=== PATIENT | male | born 1955 | race Caucasian/White ===

== ENCOUNTER 2019-06-05 14:13 | Emergency (ER) | payer BC, OTHER ==
[~2019-06-05] VITALS: Ht 175.3 cm; Wt 86.2 kg
[~2019-06-05 14:13] MED LIST: AC325T PO; ASP81TEC PO; CLPD75T PO; LISI5TAB PO; MTP25TSR PO; PRV20T PO; [UNRECOGNIZED DRUG - CODE] PO
--- OUTSIDE RECORDS SUMMARY | 2019-06-05 14:17 | XMS REPORT | Continuity of Care Document ---
Author Organization Unknown Address Unknown Phone Unavailable Allergies Active Description Code Type Severity Reaction Onset Reported/Identified Relationship to Patient Clinical Status Yes No Known Drug Allergies [id number] Drug Allergy Unknown N/A 10/18/2011 Medications There is no data. 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 10/20/2011 Ot 425.4 PRIM CARDIOMYOPATHY NEC 10/20/2011 Ot 790.6 ABN BLOOD CHEMISTRY NEC 10/20/2011 Ot V03.82 PROPHYLACTIC VACC AGAINST STREPTOCOCCUS 10/20/2011 Ot V04.81 ND FOR PROPHYLACTIC VACCIN AND INOCULATI 12/24/2016 Ot 305.1 TOBACCO USE DISORDER 12/24/2016 Ot 411.1 INTERMED CORONARY SYND 12/24/2016 Ot 414.01 CORONARY ATHEROSCLEROSIS OF [place] CORON 12/24/2016 Ot V17.49 FAMILY HISTORY OF OTHER CARDIOVASCULAR D 12/24/2016 Ot V45.89 POSTSURGICAL STATES NEC 12/24/2016 Ot 414.00 CORON ATHEROSCLER NOS TYPE VESSEL, NATIV 12/24/2016 Ot 424.0 MITRAL VALVE DISORDER 12/24/2016 Ot 425.4 PRIM CARDIOMYOPATHY NEC 12/24/2016 Ot 240.9 GOITER NOS 12/24/2016 Ot 241.0 NONTOX UNINODULAR GOITER 12/24/2016 ANDIE TAYLOR [facility] [facility] Ot 414.01 CORONARY ATHEROSCLEROSIS OF [place] CORON 12/24/2016 ANDIE TAYLOR [facility] Ot 780.79 OTH MALAISE FATIGUE 12/24/2016 Ot 305.1 TOBACCO USE DISORDER 12/24/2016 Ot 411.1 INTERMED CORONARY SYND 12/24/2016 Ot 414.01 CORONARY ATHEROSCLEROSIS OF [place] CORON 12/24/2016 Ot V17.49 FAMILY HISTORY OF OTHER CARDIOVASCULAR D 12/24/2016 Ot V45.89 POSTSURGICAL STATES NEC 12/24/2016 Ot 414.00 CORON ATHEROSCLER NOS TYPE VESSEL, NATIV 12/24/2016 Ot 424.0 MITRAL VALVE DISORDER 12/24/2016 Ot 425.4 PRIM CARDIOMYOPATHY NEC 12/24/2016 Ot 240.9 GOITER NOS 12/24/2016 Ot 241.0 NONTOX UNINODULAR GOITER 12/24/2016 BAIMELISSAANDIE Stas [facility] Ot 414.01 CORONARY ATHEROSCLEROSIS OF [place] CORON 12/24/2016 ANHMELISSA ANDIE L [facility] Ot 780.79 OTH MALAISE FATIGUE 11/03/2017 Ot 240.9 GOITER NOS 11/03/2017 Ot 241.0 NONTOX UNINODULAR GOITER 11/03/2017 BAIMA ANDIE L [facility] Ot 414.01 CORONARY ATHEROSCLEROSIS OF [place] CORON 11/03/2017 ANHMA ANDIE L [facility] Ot 780.79 OTH MALAISE FATIGUE 11/03/2017 Ot 240.9 GOITER NOS 11/03/2017 Ot 241.0 NONTOX UNINODULAR GOITER 11/03/2017 CLAUDIA ANDIE L [facility] Ot 414.01 CORONARY ATHEROSCLEROSIS OF [place] CORON 11/03/2017 ANHMELISSA ANDIE L [facility] Ot 780.79 OTH MALAISE FATIGUE 03/02/2018 NATE PERAZA FACC, JANE FACP CCDS Ot E66.3 OVERWEIGHT 03/02/2018 NATE PERAZA FACC, ALI FACP CCDS Ot E78.4 OTHER HYPERLIPIDEMIA 03/02/2018 NATE PERAZA FACC, ALI FACP CCDS Ot I10 ESSENTIAL (PRIMARY) HYPERTENSION 03/02/2018 NATE PERAZA FACC, ALI FACP CCDS Ot I25.10 ATHSCL HEART DISEASE OF [place] CORONARY 03/02/2018 NATE PERAZA FACC, ALI FACP CCDS Ot I49.5 SICK SINUS SYNDROME 03/16/2018 NATE PERAZA FACC, ALI FACP CCDS Ot E66.3 OVERWEIGHT 03/16/2018 NATE PERAZA FACC, ALI FACP CCDS Ot E78.4 OTHER HYPERLIPIDEMIA 03/16/2018 NATE PERAZA FACC, ALI FACP CCDS Ot I10 ESSENTIAL (PRIMARY) HYPERTENSION 03/16/2018 NATE PERAZA FACC, ALI FACP CCDS Ot I25.10 ATHSCL HEART DISEASE OF [place] CORONARY 03/16/2018 NATE PERAZA FACC, ALI FACP CCDS Ot I49.5 SICK SINUS SYNDROME Procedures Code Description Performed By Performed On 00.40 PROCEDURE ON SINGLE VESSEL 10/18/2011 00.45 INSERTION OF ONE VASCULAR STENT 10/18/2011 00.66 PERCUTANEOUS TRANSLUMINAL CORONARY ANGIO 10/18/2011 36.07 INSRT OF DRUG-ELUTING CORON ARTERY STENT 10/18/2011 37.22 LEFT HEART CARDIAC CATH 10/18/2011 88.53 LT HEART ANGIOCARDIOGRAM 10/18/2011 88.56 CORONAR ARTERIOGR-2 CATH 10/18/2011 Results There is no data. Encounters ACCT No. Visit Date/Time Discharge Status Pt. Type Provider Facility Loc./Unit Complaint [id number] 03/22/2019 16:00:00 03/22/2019 23:59:59 CLS Outpatient ALEJANDRO HINES [id number] 04/08/2018 10:00:00 04/08/2018 23:59:59 CLS Preadmit ANDIE TAYLOR [facility] CARD I25.10 CAD [id number] 03/01/2018 07:18:00 03/01/2018 23:59:59 CLS Outpatient NATE PERAZA FACC, ALI FACP CCDS [facility] CARD I25.10 CAD [id number] 11/09/2017 07:30:00 11/09/2017 23:59:59 CLS Preadmit NATE PERAZA FACC, ALI FACP CCDS [facility] CARD I25.10 CAD [id number] 11/05/2017 08:00:00 11/05/2017 23:59:59 CLS Preadmit NATE PERAZA FACC, ALI FACP CCDS [facility] CARD I25.10 CAD [id number] 05/29/2013 06:53:00 05/29/2013 23:59:59 CLS Outpatient ANDIE TAYLOR [facility] RAD FATIGUE,CAD [id number] 10/13/2012 10:48:00 Document Registration [id number] 09/28/2012 09:40:00 Document Registration [id number] 12/03/2011 08:23:00 Document Registration [id number] 10/18/2011 12:10:00 Document Registration [id number] 10/18/2011 12:10:00 Document Registration
--- NOTE | 2019-06-05 14:41 | ED Chest Pain ---
General Stated Complaint: WC CHEST INJURY Source: patient Exam Limitations: no limitations History of Present Illness Date Seen by Provider: Jun 05, 2019 Time Seen by Provider: 14:36 Initial Comments This 63-year-old man was working and got caught between a cement loader and the wall. He suffered squeeze type injury of the right lower chest. He was not rendered un conscious but continues to have some pain especially with breathing and movement. Timing/Duration: 1-3 hours Severity/Quality: moderate Location: central Radiation: no radiation Activities at Onset: none Prior CP/Workup: no prior chest pain Associated Symptoms: denies symptoms Allergies and Home Medications Allergies Coded Allergies: No Known Drug Allergies (Unverified , 10/18/11) Home Medications Acetaminophen 325 Mg Tablet, 650 MG PO Q6H PRN, (Reported) Aspirin 81 Mg Tabec, 81 MG PO DAILY, (Reported) Clopidogrel 75 Mg Tablet, 75 MG PO DAILY, (Reported) Lisinopril 5 Mg Tablet, 5 MG PO HS, (Reported) Metoprolol Succinate 25 Mg Tab.sr.24h, 25 MG PO DAILY, (Reported) Phenylephrine/Diphenhydramine 1 Each Tablet, 1 EACH PO PRN, (Reported) Pravastatin Sodium 20 Mg Tablet, 20 MG PO DAILY, (Reported) Patient Home Medication List Home Medication List Reviewed: Yes Review of Systems Review of Systems Constitutional: no symptoms reported Respiratory: No Symptoms Reported, See HPI (patient is tender over his right anterior lower chest.) Cardiovascular: No Symptoms Reported, See HPI Gastrointestinal: No Symptoms Reported, See HPI Genitourinary: No Symptoms Reported, See HPI Musculoskeletal: see HPI, muscle pain, muscle stiffness, muscle cramps Skin: no symptoms reported Psychiatric/Neurological: No Symptoms Reported, See HPI Endocrine: No Symptoms Reported, See HPI Hematologic/Lymphatic: No Symptoms Reported, See HPI Past Oqglywp-Aiivgp-Zlbcge Hx Past Med/Social Hx: Reviewed Nursing Past Med/Soc Hx Past Medical History Reproductive Disorders: No Physical Exam Vital Signs Vital Signs - First Documented Capillary Refill : Height, Weight, BMI Height: '" Weight: lbs. oz. kg; BMI Method: General Appearance: No Apparent Distress HEENT: PERRL/EOMI Neck: Full Range of Motion, Normal Inspection, Non Tender Respiratory: Lungs Clear, Normal Breath Sounds, No Accessory Muscle Use, Other (patient has tenderness to palpation over the right anterior chest. There is a erythematous jimmie at the lower right costal margin. This red jimmie measures about 48 cm by about 3 cm.) Cardiovascular: Regular Rate, Rhythm, No Edema, No Gallop Gastrointestinal: Normal Bowel Sounds, No Organomegaly, No Pulsatile Mass, Non Tender Rectal: Deferred Extremity: Normal Inspection, Normal Range of Motion, Non Tender Neurologic/Psychiatric: Alert, Oriented x3, Normal Mood/Affect Skin: Warm/Dry, Erythema (there is an erythematous area over the right lower costal margin is mentioned above.) Progress/Results/Core Measures Results/Orders My Orders Orders - ISABELLA ROSE MD Ct Chest Wo (06/05/19 14:34) Ct Abdomen/Pelvis W Wo (06/05/19 15:45) Cbc With Automated Diff (06/05/19 15:58) Comprehensive Metabolic Panel (06/05/19 15:58) Vital Signs/I&O 06/05/19 06/05/19 14:20 14:20 Temp 99.0 99.0 Pulse 107 107 Resp 20 20 B/P (MAP) 156/79 (104) 156/79 (104) Pulse Ox 95 95 O2 Delivery Room Air Room Air Progress Progress Note : Time: 16:03 Progress Note This 63-year-old man was working and got caught between a cement loader and the wall. He suffered squeeze type injury of the right lower chest. He was not rendered unconscious but continues to have some pain especially with breathing and movement. Examination reveals patient has some erythema and tenderness over his anterior inferior ribs. CT scan of the chest reveals a probable tumor involving the right kidney with metastasis to theL 4th rib. I talked to the patient about doing a CT scan of the abdomen and pelvis with and without contrast but he did not want to pursue that at this time and wanted to follow-up. Departure Impression Primary Impression: Contusion, chest wall Additional Impression: Neoplasm of right kidney Disposition: 01 HOME, SELF-CARE Condition: Unchanged Departure-Patient Inst. Referrals: DANA BENSON MD (PCP/Family) Primary Care Physician Patient Instructions: Bruised Rib, Kidney Cancer ISABELLA ROSE MD Jun 05, 2019 14:41
--- NOTE | 2019-06-05 15:16 | Diagnostic Imaging Report ---
PROCEDURE: CT chest without contrast. TECHNIQUE: Multiple contiguous axial images were obtained through the chest without the use of intravenous contrast. Auto Exposure Controls were utilized during the CT exam to meet ALARA standards for radiation dose reduction. INDICATION: Crush injury to the chest. COMPARISON: No prior studies are available for comparison. FINDINGS: No mediastinal hematoma is seen. Great vessel injury cannot be evaluated due to absence of intravenous contrast. There are coronary arterial calcifications present. No pericardial or pleural fluid is identified. No parenchymal contusion or pneumothorax is seen. There is some atelectasis or scarring in the right lower lobe. Evaluation of bony structures are without evidence of an acute fracture. No rib fracture seen, however, there is a lytic lesion involving the lateral left fourth rib approximately 11 mm x 21 mm, indeterminate. No other osteolytic lesions are seen. Upper abdomen does show a solid-appearing mass involving the right kidney measuring approximately 6 cm. IMPRESSION: 1. No acute chest findings are seen. 2. Left fourth rib lytic lesion. In addition, upper abdomen does demonstrate partial inclusion of a solid mass involving the right kidney. Combination of findings are highly suspicious for primary renal neoplasm with potential osteolytic metastasis of the left fourth rib. Dictated by: Dictated on workstation # [id number]
[2019-06-05 16:37] VITALS: BP 138/71
== END 2019-06-05 16:37 | disposition home or self-care (01) ==
LOC: EDUNIT# 14:13 → ER FS 14:14
DX: S20.211A Contusion of right front wall of thorax, initial encounter (principal); C64.1 Malignant neoplasm of right kidney, except renal pelvis; C79.51 Secondary malignant neoplasm of bone; Z79.82 Long term (current) use of aspirin; Z79.02 Long term (current) use of antithrombotics/antiplatelets; W23.1XXA Caught, crushed, jammed, or pinched between stationary objects, initial encounter; Y92.59 Other trade areas as the place of occurrence of the external cause; Y99.0 Civilian activity done for income or pay
CPT/HCPCS: 71250

== ENCOUNTER → 2019-10-30 | Outpatient (CLI) | payer MEDICARE ==
[~2019-10-30] MED LIST changes: +CATHETER FLUSH 10 ML SYR IV PRN; +HOLD METFORMIN - RECEIVED CONTRAST 20 ML VIAL IV SCH; +IOHEXOL 350 MG/ML 100 ML (OMNIPAQUE 350) VIAL IV ONE; +NS 100 ML (IVPB) BAG IV ONE
[2019-10-30 11:24] LABS: CREATININE SERUM 1.38 MG/DL (0.60-1.30)
--- NOTE | 2019-10-30 12:33 | Diagnostic Imaging Report ---
PROCEDURE: CT abdomen and pelvis with and without contrast. TECHNIQUE: Precontrast acquisitions were acquired through the abdomen and pelvis. Multiple contiguous axial images were obtained through the abdomen and pelvis after the administration of intravenous contrast. Auto Exposure Controls were utilized during the CT exam to meet ALARA standards for radiation dose reduction. INDICATION: Right renal mass as well as left lower quadrant pain and flank pain. COMPARISON: No prior studies are available for comparison. FINDINGS: Imaging through the lung bases show some minimal scarring or atelectasis in posterior right lower lobe. The liver demonstrates generalized low density consistent with hepatic steatosis. No discrete liver mass is identified. The gallbladder is unremarkable. No biliary ductal dilatation is seen. The pancreas and spleen are unremarkable. The right adrenal gland is unremarkable. Left adrenal gland does contain a nodule arising from the lateral limb measuring 13 mm in size. This lesion does demonstrate approximately 64% absolute washout and 49% relative washout. This is suggestive of an adrenal adenoma. There is a heterogeneous, mixed solid and cystic mass involving the upper pole of the right kidney measuring 6.5 cm AP x 6.3 cm transverse x 6.7 cm cephalocaudal. The IVC appears to be patent. The right renal vein is not well visualized. Left renal vein is patent. No definite central retroperitoneal lymphadenopathy is seen. No mesenteric lymphadenopathy is detected. The small and large bowel loops are normal caliber. There is no obstruction. There is diverticulosis of the sigmoid but no evidence of acute diverticulitis. There is no free fluid or fluid collection identified. The bladder is unremarkable. The prostate gland is enlarged. Evaluation of the osseous structures demonstrates a expansile lytic destructive lesion involving the right iliac bone. This measures approximately 6.7 x 3.6 x 4.2 cm. This appears to violate both posterior and anterior cortices of the right iliac bone. This soft tissue tumor extension into the right iliac is musculature. No other lytic lesions are seen. IMPRESSION: 1. Large next solid and cystic mass involving the upper pole of the right kidney, most consistent with renal cell carcinoma. There is also a destructive, expansile lytic lesion involving the right iliac bone with tumor extension into the right iliacus musculature. This is suggestive of a metastatic lesion. 2. Uncomplicated diverticulosis. 3. Prostatomegaly. 4. Left adrenal nodule. Enhancement kinetics are suggestive of an adrenal adenoma but follow-up to confirm stability would be recommended with repeat study in six months. Dictated by: Dictated on workstation # [id number]
--- NOTE | 2019-10-30 15:14 | Diagnostic Imaging Report ---
INDICATION: Renal mass. EXAMINATION: Whole body bone scan. RADIOPHARMACEUTICAL: 26.8 mCi of technetium 99m MDP was given intravenously. FINDINGS: There is increased activity in the right mid iliac wing. This corresponds to an expansile lytic lesion seen on the CT from earlier in the day. There is a small focus of increased uptake in the right posterior 11th rib. There are no corresponding abnormalities seen on the CT scan. There is a small focus of increased activity in the right anterior 6th and 7th ribs. IMPRESSION: Abnormal activity in the right ilium, suspicious for metastatic disease. There is abnormal activity in the right 6th and 7th ribs which are suspicious for metastatic involvement although corresponding abnormalities are not seen on the CT. There is also a small focus of increased activity in the right posterior 11th rib with no obvious abnormality seen on the CT. Dictated by: Dictated on workstation # [id number]
== END ==
LOC: CARD 10:33
PROVIDERS: ATTEND Urology
DX: N28.1 Cyst of kidney, acquired (principal); M89.9 Disorder of bone, unspecified; K57.30 Diverticulosis of large intestine without perforation or abscess without bleeding; N40.0 Benign prostatic hyperplasia without lower urinary tract symptoms; E27.8 Other specified disorders of adrenal gland
CPT/HCPCS: 36415; 74178; 78306; 82565; 84520

== ENCOUNTER → 2020-02-01 | Outpatient (CLI) | payer MEDICARE ==
[~2020-02-01] MED LIST changes: -CATHETER FLUSH 10 ML SYR IV PRN; -HOLD METFORMIN - RECEIVED CONTRAST 20 ML VIAL IV SCH; -IOHEXOL 350 MG/ML 100 ML (OMNIPAQUE 350) VIAL IV ONE; -NS 100 ML (IVPB) BAG IV ONE
--- NOTE | 2020-02-01 13:31 | Diagnostic Imaging Report ---
INDICATION: Left leg pain x1 week. COMPARISON: None TECHNIQUE: Duplex, darling-scale and color-flow imaging of the left lower extremity venous system was performed. FINDINGS: The common femoral vein, superficial femoral vein, profunda femoris, and popliteal veins are normal. These vessels show normal compressibility, color flow, and doppler augmentation. The deep calf veins, although not very well seen, demonstrate no distinct intraluminal thrombus. IMPRESSION: Negative venous Doppler of the left lower extremity. Dictated by: Dictated on workstation # [id number]
== END ==
LOC: RAD 12:49
PROVIDERS: ATTEND Internal Medicine Hospice and Palliative Medicine
DX: M79.605 Pain in left leg (principal)

== ENCOUNTER → 2020-03-19 | Outpatient (CLI) | payer MEDICARE ==
[~2020-03-19] MED LIST changes: +CATHETER FLUSH 10 ML SYR IV PRN; +HOLD METFORMIN - RECEIVED CONTRAST 20 ML VIAL IV SCH; +IOHEXOL 350 MG/ML 100 ML (OMNIPAQUE 350) VIAL IV ONE; +NS 100 ML (IVPB) BAG IV ONE
--- NOTE | 2020-03-19 15:44 | Diagnostic Imaging Report ---
EXAMINATION: CT Abdomen and Pelvis with intravenous contrast. TECHNIQUE: Multiple contiguous axial images were obtained through the abdomen and pelvis after the uneventful administration of intravenous contrast. All CT scans use one or more of the following dose optimizing techniques: automated exposure control, MA and/or KvP adjustment based on a patient size and exam type, or iterative reconstruction. HISTORY: Right renal cancer. COMPARISON: 10/30/2019. FINDINGS: Limited views of the lower thorax are unremarkable. The liver is normal without focal lesion. There is no biliary ductal dilation. Gallbladder is normal. Pancreas is normal. Spleen is normal. There is an unchanged 13 mm left adrenal nodule. Again seen is a large right renal mass measuring 6.0 x 6.0 cm, previously 6.1 x 6.2 cm. This is predominantly exophytic and arises from the interpolar zone of the kidney. There is a large soft tissue mass arising from the right ilium with a maximal dimension of 4.9 cm, previously 3.6 cm. There is a pathologic fracture of the right ilium. There is hypervascularity of the right iliacus related to direct invasion by the tumor into this muscle. There is no hydronephrosis. Urinary bladder is normal. Visualized bowel is normal in caliber without obstruction or inflammation. No free fluid or air. No abdominal or pelvic lymphadenopathy. Aorta is normal in caliber without aneurysm. There is a new 8 mm sclerotic lesion in the left ilium. IMPRESSION: 1. Stable large right renal mass. 2. Increase in size of right iliac metastatic lesion with pathologic fracture and new sclerotic lesion in the left ilium. Dictated by: Dictated on workstation # [id number]
== END ==
LOC: RAD 15:01
PROVIDERS: ATTEND Internal Medicine Hospice and Palliative Medicine
DX: C64.1 Malignant neoplasm of right kidney, except renal pelvis (principal); M84.48XA Pathological fracture, other site, initial encounter for fracture
CPT/HCPCS: 74177

== ENCOUNTER → 2020-04-01 | Outpatient (CLI) | payer MEDICARE ==
[~2020-04-01] MED LIST changes: -CATHETER FLUSH 10 ML SYR IV PRN; -NS 100 ML (IVPB) BAG IV ONE
[2020-04-01] MEDS: CATHETER FLUSH 10 ML SYR IV PRN ×2 (12:16→12:30)
--- NOTE | 2020-04-01 13:52 | Diagnostic Imaging Report ---
PROCEDURE: CT chest with contrast only. TECHNIQUE: Multiple contiguous axial images were obtained through the chest after administration of intravenous contrast. Auto Exposure Controls were utilized during the CT exam to meet ALARA standards for radiation dose reduction. INDICATION: Prostate cancer, kidney cancer. FINDINGS: The previous CT chest exam of 06/05/2019 failed to show any evidence for an acute abnormality; however, there was a lytic lesion involving the left 4th rib. On this exam, that lytic lesion is again identified. Previously, this area measured 1.1 x 2.1 cm. This lytic lesion now measures 1.5 x 2.1 cm. This finding should be considered neoplastic until proven otherwise. There is no other lytic or blastic lesion noted. The Nuclear Medicine bone scan performed on 10/30/2019 did suggest abnormal uptake in the right 6th and 7th ribs but there is no clear evidence for bony destruction in these areas on this exam. There is no parenchymal lung mass identified to indicate metastatic disease either. The mild scar formation in the right lung base seen previously is again evident and no different. There is no sign of failure, pneumonia, or pleural effusion to indicate an acute abnormality. The heart size is stable. Coronary artery calcifications are again noted. The aorta is not abnormally dilated and there is no sign of a dissection. The pulmonary arteries were not well opacified and consequently difficult to assess for pulmonary embolus. There is no definite defect to suggest a pulmonary embolus, however. There is no mediastinal or hilar adenopathy. The thyroid gland is prominent and the areas of low density in the left lobe of the thyroid seen previously are again evident and do not appear to have changed significantly. The sections through the upper abdomen again show a mass involving the superior pole of the right kidney. This mass was not visualized in its entirely but is estimated to be approximately 6 cm. The small 1 cm exophytic nodule along the posterior aspect of the left kidney seen previously is again evident. This seems to be solid as well. Ultrasound would be recommended for further evaluation. The nodule associated with the left adrenal gland may be minimally larger than on the previous CT abdomen/pelvis exam of 06/05/2019. This finding may represent a benign adrenal nodule. The possibility that this is secondary to metastatic disease should also be considered. If further imaging is desired, then either PET/CT or MRI would be recommended. IMPRESSION: 1. There is no acute cardiopulmonary abnormality identified. There is no parenchymal lung mass noted to suggest metastatic disease either. 2. The lytic lesion involving the left 4th rib seen previously has increased in size and consequently should be considered neoplastic until proven otherwise. The mass associated with the right kidney seems stable as does the 1 cm exophytic nodule along the posterior aspect of the left kidney. The nodule associated with the left adrenal gland may be minimally larger, however. Additional considerations and recommendations as above. Dictated by: Dictated on workstation # [id number]
--- NOTE | 2020-04-01 18:42 | Diagnostic Imaging Report ---
EXAMINATION: Nuclear medicine bone scan. INDICATION: Prostate cancer. TECHNIQUE: This study was performed following administration of 27.1 mCi of 99m technetium MDP. Anterior and posterior whole body images were obtained. FINDINGS: The previous nuclear medicine bone scan performed on 10/30/2019 noted abnormal activity involving the right ilium. This finding was suspicious for metastatic disease. On this exam, there is still abnormal uptake in this region. There also appears to be abnormal uptake in the left ischium. This is no different than on the prior exam as well. The previous study did show abnormal uptake along the anterior aspects of the right sixth and seventh ribs. The uptake in this region on this exam is much less. There is an area of increased activity involving the left fourth rib in the region of the lytic lesion seen in this area on the CT chest exam performed in conjunction with this study. There is no new area of abnormal uptake to suggest metastatic disease. However, there is increased activity along the medial aspect of the left knee joint. This finding was not present on the prior exam and may be related to trauma to the left knee. Clinical follow-up is recommended. Both kidneys do show excretion of the radiotracer. IMPRESSION: 1. The suspected metastatic foci involving the right ilium and left ischium seen previously are again evident and no different. 2. There is little if any abnormal uptake involving the right sixth and seventh ribs. There is persistent uptake of the left fourth rib, however. 3. The abnormal uptake involving the medial aspect of the left knee joint may be post-traumatic in nature. Clinical follow-up is recommended. If further imaging is desired, then MRI would be recommended. Dictated by: Dictated on workstation # [id number]
== END ==
LOC: CARD 11:47
PROVIDERS: ATTEND Internal Medicine Hospice and Palliative Medicine
DX: C64.1 Malignant neoplasm of right kidney, except renal pelvis (principal); C61 Malignant neoplasm of prostate; N28.89 Other specified disorders of kidney and ureter; E27.8 Other specified disorders of adrenal gland; I25.10 Atherosclerotic heart disease of native coronary artery without angina pectoris; R91.8 Other nonspecific abnormal finding of lung field; M89.9 Disorder of bone, unspecified
CPT/HCPCS: 71260; 78306

== ENCOUNTER → 2020-05-21 | Outpatient (CLI) | payer MEDICARE ==
[~2020-05-21] MED LIST changes: +CATHETER FLUSH 10 ML SYR IV PRN; +NS 100 ML (IVPB) BAG IV ONE
--- NOTE | 2020-05-21 13:00 | Diagnostic Imaging Report ---
EXAMINATION: CT Chest, Abdomen and Pelvis with intravenous contrast. TECHNIQUE: Multiple contiguous axial images were obtained through the chest, abdomen and pelvis after the uneventful administration of intravenous contrast. All CT scans use one or more of the following dose optimizing techniques: automated exposure control, MA and/or KvP adjustment based on a patient size and exam type, or iterative reconstruction. HISTORY: Renal cancer. COMPARISON: 04/01/2020 and 03/19/2020. FINDINGS: There is no edema or pneumonia. No pleural effusion. No pneumothorax. No suspicious nodules. Heart size is normal. There are moderate coronary artery calcifications. No pericardial effusion. Aorta is normal in caliber. There is no axillary or supraclavicular lymphadenopathy. There is no mediastinal lymphadenopathy. Left-sided thyroid nodule is stable. The liver is normal without focal lesion. There is no biliary ductal dilation. Gallbladder is normal. Pancreas is normal. Spleen is normal. There is a stable 13 mm left adrenal nodule. The right adrenal mass is stable in size measuring 6.3 x 6.1 cm, previously 6.1 x 6.0 cm. There is no hydronephrosis. Urinary bladder is normal. Visualized bowel is normal in caliber without obstruction or inflammation. There is a fat-containing left inguinal hernia. No free fluid or air. No abdominal or pelvic lymphadenopathy. Aorta is normal in caliber without aneurysm. Soft tissue mass in the right ilium is stable measuring up to 5.2 cm in size. There is a stable tiny left iliac sclerotic lesion. Left fourth rib lesion is similar to prior study. IMPRESSION: 1. Stable right renal mass and metastatic lesions in the left fourth rib and right ilium. 2. Stable indeterminate left adrenal nodule and tiny sclerotic lesion in the left ilium. Dictated by: Dictated on workstation # [id number]
--- NOTE | 2020-05-21 15:40 | Diagnostic Imaging Report ---
INDICATION: Right renal neoplasm. TECHNIQUE: The patient was administered 25.7 mCi of technetium 99m MDP intravenously and whole-body imaging was performed after a 3 hour delay. COMPARISON: Correlation is made with the prior whole body bone scan from 04/01/2020. FINDINGS: Uptake of activity by the axial and appendicular skeleton is noted. There is uptake by both kidneys with excretion into the urinary bladder. A small area of uptake involving the lateral aspect of the left approximately 4th rib is unchanged. Minimal uptake in the lower right ribs posteriorly, best seen on the posterior view, is stable. Mild degenerative uptake at the left knee and bilateral shoulders is unchanged. The previously noted uptake involving the left iliac bone and left supra-acetabular region appears stable. A lucency at the right iliac bone near the crest on the posterior view is stable. No new abnormality is identified. IMPRESSION: Overall stable whole body bone scan when compared with the examination from 04/01/2020. Dictated by: Dictated on workstation # [id number]
== END ==
LOC: CARD 11:46
PROVIDERS: ATTEND Internal Medicine Hospice and Palliative Medicine
DX: C64.1 Malignant neoplasm of right kidney, except renal pelvis (principal); C79.51 Secondary malignant neoplasm of bone; E27.8 Other specified disorders of adrenal gland
CPT/HCPCS: 71260; 74177; 78306; A9503

== ENCOUNTER → 2020-05-22 | Outpatient (CLI) | payer MEDICARE ==
[~2020-05-22] MED LIST changes: -CATHETER FLUSH 10 ML SYR IV PRN; -HOLD METFORMIN - RECEIVED CONTRAST 20 ML VIAL IV SCH; -IOHEXOL 350 MG/ML 100 ML (OMNIPAQUE 350) VIAL IV ONE; -NS 100 ML (IVPB) BAG IV ONE
== END ==
LOC: LABNPT 07:57
PROVIDERS: ATTEND Internal Medicine Hospice and Palliative Medicine
DX: Z20.828 Contact with and (suspected) exposure to other viral communicable diseases (principal)
CPT/HCPCS: 87635

== ENCOUNTER → 2020-07-19 | Outpatient (CLI) | payer MEDICARE | LOC: LABNPT 08:03 | PROVIDERS: ATTEND Internal Medicine Hospice and Palliative Medicine | DX: Z11.59 Encounter for screening for other viral diseases (principal); C61 Malignant neoplasm of prostate; C64.1 Malignant neoplasm of right kidney, except renal pelvis; Z20.828 Contact with and (suspected) exposure to other viral communicable diseases | CPT/HCPCS: 87635 ==

== ENCOUNTER → 2020-08-15 | Outpatient (CLI) | payer MEDICARE | LOC: LABNPT 08:23 | PROVIDERS: ATTEND Internal Medicine Hospice and Palliative Medicine | DX: Z01.812 Encounter for preprocedural laboratory examination (principal); C64.1 Malignant neoplasm of right kidney, except renal pelvis; Z20.828 Contact with and (suspected) exposure to other viral communicable diseases | CPT/HCPCS: 87635 ==

== ENCOUNTER → 2020-09-13 | Outpatient (CLI) | payer MEDICARE | LOC: LABNPT 08:21 | PROVIDERS: ATTEND Internal Medicine Hospice and Palliative Medicine | DX: C61 Malignant neoplasm of prostate (principal); C64.1 Malignant neoplasm of right kidney, except renal pelvis; Z20.828 Contact with and (suspected) exposure to other viral communicable diseases | CPT/HCPCS: 87635 ==

== ENCOUNTER → 2020-10-04 | Outpatient (CLI) | payer MEDICARE ==
[~2020-10-04] MED LIST changes: +CATHETER FLUSH 10 ML SYR IV PRN; +HOLD METFORMIN - RECEIVED CONTRAST 20 ML VIAL IV SCH; +IOHEXOL 350 MG/ML 100 ML (OMNIPAQUE 350) VIAL IV ONE; +NS 100 ML (IVPB) BAG IV ONE
[2020-10-04 12:08] LABS: ALBUMIN 4.3 GM/DL (3.2-4.5); CHLORIDE 101 MMOL/L (98-107); POTASSIUM 4.4 MMOL/L (3.6-5.0); SODIUM 138 MMOL/L (135-145)
[2020-10-04 12:09] LABS: CALCIUM 9.4 MG/DL (8.5-10.1)
[2020-10-04 12:10] LABS: GLUCOSE 98 MG/DL (70-105)
[2020-10-04 12:11] LABS: TOTAL PROTEIN 6.9 GM/DL (6.4-8.2)
[2020-10-04 12:12] LABS: BILIRUBIN,TOTAL 0.3 MG/DL (0.1-1.0); CARBON DIOXIDE 27 MMOL/L (21-32)
[2020-10-04 12:14] LABS: ALKALINE PHOSPHATASE 52 U/L (40-136); CREATININE SERUM 1.05 MG/DL (0.60-1.30); GFR ESTIMATED > 60
[2020-10-04 12:15] LABS: BUN/CREATININE RATIO 14
[2020-10-04 12:17] LABS: ALANINE AMINOTRANSFERASE 14 U/L (0-55)
--- NOTE | 2020-10-04 13:45 | Diagnostic Imaging Report ---
PROCEDURE: CT chest, abdomen, and pelvis with contrast. TECHNIQUE: Multiple contiguous axial images were obtained through the chest, abdomen, and pelvis after the administration of intravenous contrast. Auto Exposure Controls were utilized during the CT exam to meet ALARA standards for radiation dose reduction. INDICATION: Renal carcinoma. CORRELATION STUDY: 05/21/2020 FINDINGS: CT CHEST: Thyroid gland is mildly enlarged. Low-density nodule particularly inferior pole left lobe. No pathologically enlarged axillary, mediastinal and/or hilar lymph nodes. Heart size is within normal limits. There is scattered mild to moderate coronary artery calcification. Emphysematous change about the lung parenchyma. Asymmetric scarring in the right lower lobe. No infiltrate. No definitive concerning pulmonary mass. Expansile lateral left 4th rib appears unchanged. There is apparent new destructive soft tissue mass at the medial right scapula, approximately [address] ABDOMEN and PELVIS: Liver, gallbladder, spleen, pancreas and right adrenal gland unchanged. 16 mm enhancing lateral left adrenal gland mass. Large, approximately 6.7 x 6.4 cm enhancing mass superior pole right kidney, measures slightly larger (previously 6.3 x 6.1 cm) a few shotty central retroperitoneal lymph nodes are present. No pathologically enlarged lymphadenopathy. Inferior vena cava and right renal vein are unremarkable without definitive filling defect. Gastrointestinal tract: Colonic diverticulosis without evidence for acute diverticulitis. Normal appendix. Prominent vasculature in and around this mass. Additionally, there is a small exophytic enhancing solid nodule posterior interpolar region left kidney, 12 mm in size. Destructive exophytic mass of the right iliac bone with surrounding soft tissue component appears generally stable. Additionally, there is loss of the medullary portion the left acetabulum also suggestive of a likely osseous metastasis. Few sclerotic lesions the iliac bone. IMPRESSION: CT CHEST: 1. Generally stable metastatic lesion left lateral 4th rib. 2. Apparent new destructive soft tissue mass medial right scapula. CT ABDOMEN and PELVIS: 1. Stable to slightly progressive enlargement of a right renal neoplastic mass. 2. There is also presence of a small exophytic concerning mass left kidney as well. 3. Destructive right iliac bone metastasis and likely left superior acetabular metastasis overall generally stable. 4. Stable appearance about avidly enhancing left adrenal gland mass. Dictated by: Dictated on workstation # [id number]
--- NOTE | 2020-10-04 15:54 | Diagnostic Imaging Report ---
INDICATION: Prostate cancer. It is compared with study from an outside facility [facility] dated 08/16/2020. TECHNIQUE: The patient received an intravenous dose 25.7 mCi Tc 99 MDP, whole-body planar imaging then performed 3 hours following injection. The study also interpreted in correlation with the CT study performed 10/04/2020. There is an abnormal uptake at the left acetabulum at the top of the right iliac crest in the lateral aspect of the left 4th ribs these are unchanged from the prior bone scan and correspond to areas of bony metastatic disease seen on separately performed CT. Elsewhere an arthritic pattern of uptake involves the left greater than right knees and the bilateral shoulders. Elevated uptake in the lower left tibial shaft is of uncertain etiology, plain film correlation recommended. Some asymmetric uptake in the rightward mid thoracic spine corresponds to endplate osteophytes. IMPRESSION: Unchanged from outside study, areas of uptake correspond to a bony lesions present on earlier CT. No obvious scintigraphic evidence for disease progression. Dictated by: Dictated on workstation # [id number]
== END ==
LOC: CARD 12:00
PROVIDERS: ATTEND Internal Medicine Hospice and Palliative Medicine
DX: C61 Malignant neoplasm of prostate (principal); C64.1 Malignant neoplasm of right kidney, except renal pelvis
CPT/HCPCS: 71260; 74177; 78306; 80053; A9503; 36415

== ENCOUNTER 2020-10-07 14:58 | Outpatient (RCR) | payer MEDICARE ==
[~2020-10-07 14:58] MED LIST changes: -CATHETER FLUSH 10 ML SYR IV PRN; -HOLD METFORMIN - RECEIVED CONTRAST 20 ML VIAL IV SCH; -IOHEXOL 350 MG/ML 100 ML (OMNIPAQUE 350) VIAL IV ONE; -NS 100 ML (IVPB) BAG IV ONE
== END 2020-12-09 | disposition home or self-care (01) ==
LOC: ONC 14:58
PROVIDERS: ATTEND Radiology Radiation Oncology
DX: C79.51 Secondary malignant neoplasm of bone (principal); C64.1 Malignant neoplasm of right kidney, except renal pelvis; I25.10 Atherosclerotic heart disease of native coronary artery without angina pectoris; I10 Essential (primary) hypertension; E78.5 Hyperlipidemia, unspecified; Z87.01 Personal history of pneumonia (recurrent); Z95.5 Presence of coronary angioplasty implant and graft; Z85.46 Personal history of malignant neoplasm of prostate
CPT/HCPCS: 77290; 77295; 77300; 77334 ×2; G0463; 77336; 77417; 99204

== ENCOUNTER → 2020-10-10 | Outpatient (CLI) | payer MEDICARE | LOC: LABNPT 08:42 | PROVIDERS: ATTEND Internal Medicine Hospice and Palliative Medicine | DX: C64.1 Malignant neoplasm of right kidney, except renal pelvis (principal); Z20.828 Contact with and (suspected) exposure to other viral communicable diseases | CPT/HCPCS: 87635 ==

== ENCOUNTER → 2020-11-26 | Outpatient (CLI) | payer MEDICARE | LOC: LABNPT 08:14 | PROVIDERS: ATTEND Internal Medicine Hospice and Palliative Medicine | DX: C64.1 Malignant neoplasm of right kidney, except renal pelvis (principal); Z20.822 Contact with and (suspected) exposure to COVID-19 | CPT/HCPCS: 87635 ==

== ENCOUNTER → 2020-12-02 | Outpatient (CLI) | payer MEDICARE ==
[~2020-12-02] MED LIST changes: +HOLD METFORMIN - RECEIVED CONTRAST 20 ML VIAL IV SCH; +IOHEXOL 350 MG/ML 100 ML (OMNIPAQUE 350) VIAL IV ONE; +NS 100 ML (IVPB) BAG IV ONE
[2020-12-02] MEDS: CATHETER FLUSH 10 ML SYR IV PRN ×2 (11:39→12:57)
--- NOTE | 2020-12-02 13:10 | Diagnostic Imaging Report ---
PROCEDURE: CT chest, abdomen, and pelvis with contrast. TECHNIQUE: Multiple contiguous axial images were obtained through the chest, abdomen, and pelvis after the administration of intravenous contrast. Auto Exposure Controls were utilized during the CT exam to meet ALARA standards for radiation dose reduction. INDICATION: Renal cancer, follow-up. COMPARISON: Correlation is made with prior CT from 10/04/2020. FINDINGS: CT chest: No axillary lymphadenopathy is detected. No mediastinal or hilar lymphadenopathy is detected. There is no pericardial or pleural fluid. No pulmonary nodules, masses or infiltrates are seen. There is some scarring or atelectasis in the posterior right lower lobe. Expansile lesion involving the left lateral fourth rib is again noted and appears slightly larger. The mass involving the inferior and medial aspect of the scapula has significantly increased in size, now measuring approximately 4.4 x 3.8 cm. IMPRESSION: No evidence of thoracic lymphadenopathy or pulmonary metastatic disease. Expansile left fourth rib lesion persists may be a slightly larger on today's study. In addition, the soft tissue mass involving the inferior and medial right scapula has increased in size. CT abdomen and pelvis: No discrete liver mass is identified. Gallbladder is unremarkable. There is no biliary ductal dilatation. The pancreas and spleen are unremarkable. No adrenal mass is detected. The large solid mass involving the right kidney measures approximately 6.9 x 6.6 cm compared with 6.7 x 6.4 cm. Left kidney again demonstrates a small exophytic hyperdense lesion 12 mm in size, stable. The aorta is non-aneurysmal. No definite central retroperitoneal or mesenteric lymphadenopathy is seen. Bowel loops are normal caliber. There is no ascites. There is diverticulosis of the sigmoid but no evidence of acute diverticulitis. No definite pelvic lymphadenopathy is seen. The expansile mass involving the right iliac is again noted. The lytic lesion in the left supra-acetabular region is again noted as well. No definite new osteolytic lesion is seen. IMPRESSION: Overall stable CT abdomen and pelvis since exam from 10/04/2020. A large solid right renal mass as well as indeterminate exophytic left renal mass appear to be fairly stable. The expansile osseous lesions involving the right iliac and left supra-acetabular regions appear to be fairly stable. Dictated by: Dictated on workstation # [id number]
--- NOTE | 2020-12-02 15:13 | Diagnostic Imaging Report ---
INDICATION: Renal carcinoma. TECHNIQUE: Patient was administered 27 mCi technetium 99m MDP intravenously and whole body imaging was performed after a three-hour delay. COMPARISON: Correlation is made with prior whole body bone scan from 10/04/2020. FINDINGS: Uptake involving the left acetabulum and lateral left fourth rib appears similar to prior exam. Expansile lesion in the right iliac crest is unchanged. Degenerative uptake in the midthoracic spine as well as bilateral knees is unchanged. No new foci are seen. There is uptake in the medial aspect of the right scapula, increased since prior exam. IMPRESSION: Metastatic lesions in the right scapula, right iliac crest, as well as left supra-acetabular location as well as lateral fourth rib. These correspond to the areas noted on CT. No new foci of osseous metastatic disease are identified. Dictated by: Dictated on workstation # [id number]
== END ==
LOC: CARD 11:19
PROVIDERS: ATTEND Internal Medicine Hospice and Palliative Medicine
DX: C64.1 Malignant neoplasm of right kidney, except renal pelvis (principal); N28.89 Other specified disorders of kidney and ureter
CPT/HCPCS: 71260; 74177; 78306; A9503

== ENCOUNTER 2021-01-29 19:09 | Emergency (ER) | payer MEDICARE ==
[~2021-01-29] VITALS: Ht 175 cm; Wt 88.0 kg
[~2021-01-29 19:09] MED LIST changes: -HOLD METFORMIN - RECEIVED CONTRAST 20 ML VIAL IV SCH; -IOHEXOL 350 MG/ML 100 ML (OMNIPAQUE 350) VIAL IV ONE; -NS 100 ML (IVPB) BAG IV ONE
[2021-01-29] MEDS ORDERED: hydrALAZINE (APESOLINE) 20 MG/ML VIAL IV ONE (19:30)
--- NOTE | 2021-01-29 19:33 | ED Cardiac General ---
History of Present Illness General Chief Complaint: Cardiac/General Problems Stated Complaint: HIGH BLOOD PRESSURE History of Present Illness Date Seen by Provider: Jan 29, 2021 Time Seen by Provider: 19:15 Initial Comments 65-year-old male presents for hypertension. He has been monitoring at home, readings from 180/120 max. His oncology team at [facility] and his primary care provider have recently changed his medication and increased his lisinopril to 40 mg and hydrochlorothiazide 25 mg. He started a new pain medicine for the prostate cancer and a side effect is hypertension. He also noted a headache mainly above the right eye today. He also reports a stressful day at work. He is denying any chest pain, diaphoresis, or nausea/vomiting. Timing/Duration: 1-2 days Severity: mild NTG SL PYTHON DEVELOPER: No ASA po PYTHON DEVELOPER: Yes Associated Systoms: No Chest Pain, No Cough, No Diaphoresis, No Fever/Chills; Headaches; No Loss of Appetite, No Malaise, No Nausea/Vomiting, No Rash, No Seizure, No Shortness of Air, No Syncope, No Weakness Allergies and Home Medications Allergies Coded Allergies: No Known Drug Allergies (Unverified , 10/18/11) Home Medications Acetaminophen 325 Mg Tablet, 650 MG PO Q6H PRN, (Reported) Aspirin 81 Mg Tabec, 81 MG PO DAILY, (Reported) Clopidogrel 75 Mg Tablet, 75 MG PO DAILY, (Reported) Lisinopril 5 Mg Tablet, 5 MG PO HS, (Reported) Metoprolol Succinate 25 Mg Tab.sr.24h, 25 MG PO DAILY, (Reported) Phenylephrine/Diphenhydramine 1 Each Tablet, 1 EACH PO PRN, (Reported) Pravastatin Sodium 20 Mg Tablet, 20 MG PO DAILY, (Reported) Patient Home Medication List Home Medication List Reviewed: Yes Review of Systems Review of Systems Constitutional: no symptoms reported, see HPI Cardiovascular: See HPI; Denies Chest Pain, Denies Edema, Denies Irregular Heart Rate, Denies Lightheadedness, Denies Palpitations, Denies Syncope; Other (Hypertension.) Gastrointestinal: No Symptoms Reported, See HPI; Denies Nausea, Denies Vomiting Psychiatric/Neurological: See HPI, Headache All Other Systems Reviewed Negative Unless Noted: Yes Past Dsmxkve-Cnouwc-Pognyx Hx Past Med/Social Hx: Reviewed Nursing Past Med/Soc Hx Patient Social History Type Used: Cigarettes 2nd Hand Smoke Exposure: No Recent Hopitalizations: No Seasonal Allergies Seasonal Allergies: No Past Medical History Surgeries: Yes (neck) Coronary Stent Respiratory: No Cardiac: Yes (stent placement 10 years ago) Coronary Artery Disease Neurological: No Reproductive Disorders: No Genitourinary: No Gastrointestinal: No Musculoskeletal: No Endocrine: No HEENT: No Cancer: No Psychosocial: No Integumentary: No Blood Disorders: No Physical Exam Vital Signs Vital Signs - First Documented 01/29/21 19:15 Temp 35.7 Pulse 83 Resp 16 B/P (MAP) 179/108 (131) O2 Delivery Room Air Capillary Refill : Height, Weight, BMI Height: 5'9.00" Weight: 190lbs. oz. 86.256035mf; BMI Method:Stated General Appearance: WD/WN, Anxious HEENT: PERRL/EOMI, TMs Normal, Normal ENT Inspection, Pharynx Normal Neck: Full Range of Motion, Normal Inspection, Non Tender, Supple Respiratory: Chest Non Tender, Lungs Clear, Normal Breath Sounds Cardiovascular: Regular Rate, Rhythm, No Edema, No JVD, No Murmur Gastrointestinal: Normal Bowel Sounds, Non Tender, Soft Extremity: Normal Capillary Refill, Normal Inspection, Normal Range of Motion, Non Tender, No Calf Tenderness, No Pedal Edema Neurologic/Psychiatric: Alert, Oriented x3, No Motor/Sensory Deficits, Normal Mood/Affect, process 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-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 Norm as Tested Skin: Normal Color, Warm/Dry Progress/Results/Core Measures Results/Orders Lab Results Laboratory Tests Test 01/29/21 19:26 Range/Units White Blood Count 5.1 4.3-11.0 10^3/uL Red Blood Count 5.27 4.30-5.52 10^6/uL Hemoglobin 16.5 13.3-17.7 g/dL Hematocrit 49 40-54 % Mean Corpuscular Volume 93 80-99 fL Mean Corpuscular Hemoglobin 31 25-34 pg Mean Corpuscular Hemoglobin Concent 34 32-36 g/dL Red Cell Distribution Width 12.6 10.0-14.5 % Platelet Count 197 130-400 10^3/uL Mean Platelet Volume 9.3 9.0-12.2 fL Immature Granulocyte % (Auto) 0 % Neutrophils (%) (Auto) 60 42-75 % Lymphocytes (%) (Auto) 27 12-44 % Monocytes (%) (Auto) 10 0-12 % Eosinophils (%) (Auto) 2 0-10 % Basophils (%) (Auto) 0 0-10 % Neutrophils # (Auto) 3.1 1.8-7.8 10^3/uL Lymphocytes # (Auto) 1.4 1.0-4.0 10^3/uL Monocytes # (Auto) 0.5 0.0-1.0 10^3/uL Eosinophils # (Auto) 0.1 0.0-0.3 10^3/uL Basophils # (Auto) 0.0 0.0-0.1 10^3/uL Immature Granulocyte # (Auto) 0.0 0.0-0.1 10^3/uL Prothrombin Time 12.9 12.2-14.7 SEC INR Comment 0.9 0.8-1.4 Activated Partial Thromboplast Time 30 24-35 SEC Sodium Level 139 135-145 MMOL/L Potassium Level 3.6 3.6-5.0 MMOL/L Chloride Level 100 98-107 MMOL/L Carbon Dioxide Level 29 21-32 MMOL/L Anion Gap 10 5-14 MMOL/L Blood Urea Nitrogen 10 7-18 MG/DL Creatinine 1.02 0.60-1.30 MG/DL Estimat Glomerular Filtration Rate > 60 BUN/Creatinine Ratio 10 Glucose Level 97 70-105 MG/DL Calcium Level 9.5 8.5-10.1 MG/DL Corrected Calcium 8.5-10.1 MG/DL Magnesium Level 2.3 1.6-2.4 MG/DL Total Bilirubin 0.3 0.1-1.0 MG/DL Aspartate Amino Transf (AST/SGOT) 28 5-34 U/L Alanine Aminotransferase (ALT/SGPT) 32 0-55 U/L Alkaline Phosphatase 98 40-136 U/L Myoglobin 99.8 H 10.0-92.0 NG/ML Troponin I < 0.028 <0.028 NG/ML B-Type Natriuretic Peptide 22.9 <100.0 PG/ML Total Protein 7.9 6.4-8.2 GM/DL Albumin 4.7 H 3.2-4.5 GM/DL My Orders Orders - JONAH ATKINSON Cbc With Automated Diff (01/29/21 19:23) Magnesium (01/29/21 19:23) Chest 1 View, Ap/Pa Only (01/29/21 19:23) Ekg Tracing (01/29/21 19:23) Comprehensive Metabolic Panel (01/29/21 19:23) Myoglobin Serum (01/29/21 19:23) Protime With Inr (01/29/21 19:23) Partial Thromboplastin Time (01/29/21 19:23) Monitor-Rhythm Ecg Trace Only (01/29/21 19:23) Ed Iv/Invasive Line Start (01/29/21 19:23) BNP (01/29/21 19:23) Troponin I (01/29/21 19:23) Acetaminophen Tablet/Caplet (Tylenol T (01/29/21 20:00) Vital Signs/I&O 01/29/21 19:15 Temp 35.7 Pulse 83 Resp 16 B/P (MAP) 179/108 (131) O2 Delivery Room Air Progress Progress Note : Time: 19:15 Progress Note Patient seen and evaluated, initial blood pressure 180/120. Will get labs, EKG, and chest x-ray. 1929 Second blood pressure reading 150/90. Will give Tylenol 650 mg for headache. 1999 patient reports headache has improved and declined the Tylenol. Blood pressure 142/80. Awaiting all labs and will plan for discharge. 2019 all labs within normal limits. Patient continues to deny any symptoms at this time. Blood pressure has normalized. Discharge instructions and return precautions reviewed. Initial ECG Impression Date: Jan 29, 2021 Initial ECG Impression Time: 19:25 Initial ECG Rate: 78 Initial ECG Rhythm: Normal Sinus Initial ECG Intervals: Normal Initial ECG Intervals MN 221, QRSD 100, QT 398, QTc 454. [place] A 83, QRS 41, T 37. Initial ECG Impression: Normal Diagnostic Imaging Diagonstic Imaging: Xray Plain Films/CT/US/NM/MRI: chest Comments NAME: ROCK Myranda [facility] REC#: [id number] PT STATUS: REG ER : 1955 PHYSICIAN: JONAH ATKINSON ADMIT DATE: 01/29/21/ER Signed Date of Exam:01/29/21 CHEST 1 VIEW, AP/PA ONLY INDICATION: Hypertension Portable chest 7:28 PM Heart size and pulmonary vascularity are normal. Lungs are clear. There are no effusions or pneumothoraces. There is focal pleural thickening left upper lateral chest from an expansile rib lesion. IMPRESSION: Expansile rib lesion left upper lateral chest. This is previously seen on a CT chest dated 12/02/2020. Dictated by: Dictated on workstation # [id number] Dict: 01/29/211935 Trans: 01/29/211941 CVB [id number] Interpreted by: DIO JOHNSON MD Electronically signed by: DIO JOHNSON MD 01/29/211941 Reviewed: Reviewed by Me Departure Impression Primary Impression: Hypertension Qualified Codes: I10 - Essential (primary) hypertension Disposition: HOME, SELF-CARE Condition: Improved Departure-Patient Inst. Decision time for Depature: 20:20 Referrals: SHANIKA BENSON MD (PCP/Family) Primary Care Physician Patient Instructions: High Blood Pressure (DC) Add. Discharge Instructions: Continue to take your home medications as prescribed. Follow-up with your primary care provider or oncologist regarding your pain medication and blood pressure medicines. Return to the emergency department for new, urgent healthcare needs. All discharge instructions reviewed with patient and/or family. Voiced understanding. JONAH ATKINSON Jan 29, 2021 19:33
--- NOTE | 2021-01-29 19:41 | Diagnostic Imaging Report ---
INDICATION: Hypertension Portable chest 7:28 PM Heart size and pulmonary vascularity are normal. Lungs are clear. There are no effusions or pneumothoraces. There is focal pleural thickening left upper lateral chest from an expansile rib lesion. IMPRESSION: Expansile rib lesion left upper lateral chest. This is previously seen on a CT chest dated 12/02/2020. Dictated by: Dictated on workstation # [id number]
[2021-01-29 19:43] LABS: BASOPHILS % (AUTO) 0 % (0-10); EOSINOPHILS # (AUTO) 0.1 10^3/uL (0.0-0.3); EOSINOPHILS % (AUTO) 2 % (0-10); HEMATOCRIT 49 % (40-54); HEMOGLOBIN 16.5 g/dL (13.3-17.7); LYMPHOCYTES # (AUTO) 1.4 10^3/uL (1.0-4.0); LYMPHOCYTES % (AUTO) 27 % (12-44); MEAN CORPUSCULAR HEMOGLOBIN 31 pg (25-34); MEAN CORPUSCULAR HGB CONC 34 g/dL (32-36); MEAN CORPUSCULAR VOLUME 93 fL (80-99); MEAN PLATELET VOLUME 9.3 fL (9.0-12.2); MONOCYTES # (AUTO) 0.5 10^3/uL (0.0-1.0); MONOCYTES % (AUTO) 10 % (0-12); NEUTROPHILS # (AUTO) 3.1 10^3/uL (1.8-7.8); NEUTROPHILS % (AUTO) 60 % (42-75); PLATELET COUNT 197 10^3/uL (130-400); WHITE BLOOD COUNT 5.1 10^3/uL (4.3-11.0)
[2021-01-29 19:50] LABS: INR 0.9 (0.8-1.4); PROTHROMBIN TIME PATIENT 12.9 SEC (12.2-14.7)
[2021-01-29 19:57] LABS: ALBUMIN 4.7 GM/DL (3.2-4.5); CHLORIDE 100 MMOL/L (98-107); POTASSIUM 3.6 MMOL/L (3.6-5.0); SODIUM 139 MMOL/L (135-145)
[2021-01-29 19:58] LABS: CALCIUM 9.5 MG/DL (8.5-10.1)
[2021-01-29 19:59] LABS: GLUCOSE 97 MG/DL (70-105); TOTAL PROTEIN 7.9 GM/DL (6.4-8.2)
[2021-01-29] MEDS ORDERED: ACETAMINOPHEN 325 MG TABLET PO ONE (20:00)
[2021-01-29 20:01] LABS: BILIRUBIN,TOTAL 0.3 MG/DL (0.1-1.0); CARBON DIOXIDE 29 MMOL/L (21-32)
[2021-01-29 20:03] LABS: ALKALINE PHOSPHATASE 98 U/L (40-136); CREATININE SERUM 1.02 MG/DL (0.60-1.30); GFR ESTIMATED > 60
[2021-01-29 20:04] LABS: BUN/CREATININE RATIO 10
[2021-01-29 20:06] LABS: ALANINE AMINOTRANSFERASE 32 U/L (0-55)
[2021-01-29 20:07] LABS: MAGNESIUM 2.3 MG/DL (1.6-2.4)
[2021-01-29 20:39] VITALS: BP 148/91
== END 2021-01-29 20:40 | disposition home or self-care (01) ==
LOC: EDUNIT# 19:09 → ER 19:11
DX: I10 Essential (primary) hypertension (principal); C61 Malignant neoplasm of prostate; I25.10 Atherosclerotic heart disease of native coronary artery without angina pectoris; Z95.5 Presence of coronary angioplasty implant and graft; Z79.82 Long term (current) use of aspirin; Z79.02 Long term (current) use of antithrombotics/antiplatelets; Z79.899 Other long term (current) drug therapy
CPT/HCPCS: 36415; 71045; 80053; 83735; 83874; 83880; 84484; 85025; 85610; 85730; 93005; 93041

== ENCOUNTER → 2021-03-04 | Outpatient (CLI) | payer MEDICARE ==
[~2021-03-04] MED LIST changes: +CATHETER FLUSH 10 ML SYR IV PRN; +HOLD METFORMIN - RECEIVED CONTRAST 20 ML VIAL IV SCH; +IOHEXOL 350 MG/ML 100 ML (OMNIPAQUE 350) VIAL IV ONE; +NS 100 ML (IVPB) BAG IV ONE
[2021-03-04 07:12] LABS: BASOPHILS % (AUTO) 0 % (0-10); EOSINOPHILS # (AUTO) 0.2 10^3/uL (0.0-0.3); EOSINOPHILS % (AUTO) 4 % (0-10); HEMATOCRIT 48 % (40-54); HEMOGLOBIN 15.9 g/dL (13.3-17.7); LYMPHOCYTES # (AUTO) 1.2 10^3/uL (1.0-4.0); LYMPHOCYTES % (AUTO) 26 % (12-44); MEAN CORPUSCULAR HEMOGLOBIN 32 pg (25-34); MEAN CORPUSCULAR HGB CONC 34 g/dL (32-36); MEAN CORPUSCULAR VOLUME 94 fL (80-99); MEAN PLATELET VOLUME 9.4 fL (9.0-12.2); MONOCYTES # (AUTO) 0.6 10^3/uL (0.0-1.0); MONOCYTES % (AUTO) 12 % (0-12); NEUTROPHILS # (AUTO) 2.6 10^3/uL (1.8-7.8); NEUTROPHILS % (AUTO) 57 % (42-75); PLATELET COUNT 161 10^3/uL (130-400); WHITE BLOOD COUNT 4.5 10^3/uL (4.3-11.0)
[2021-03-04 07:34] LABS: ALANINE AMINOTRANSFERASE 37 U/L (0-55); ALBUMIN 3.9 GM/DL (3.2-4.5); ALKALINE PHOSPHATASE 92 U/L (40-136); BILIRUBIN,TOTAL 0.4 MG/DL (0.1-1.0); BUN/CREATININE RATIO 14; CALCIUM 9.1 MG/DL (8.5-10.1); CARBON DIOXIDE 29 MMOL/L (21-32); CHLORIDE 101 MMOL/L (98-107); CREATININE SERUM 1.03 MG/DL (0.60-1.30); GFR ESTIMATED > 60; GLUCOSE 97 MG/DL (70-105); SODIUM 139 MMOL/L (135-145); TOTAL PROTEIN 6.7 GM/DL (6.4-8.2)
--- NOTE | 2021-03-04 10:14 | Diagnostic Imaging Report ---
PROCEDURE: CT chest, abdomen, and pelvis with contrast. TECHNIQUE: Multiple contiguous axial images were obtained through the chest, abdomen, and pelvis after the administration of intravenous contrast. Auto Exposure Controls were utilized during the CT exam to meet ALARA standards for radiation dose reduction. INDICATION: Malignant neoplasm right kidney The previous CT chest, abdomen and pelvis exam of 12/02/2020 noted a large solid mass involving the right kidney measuring 6.9 x 6.6 cm. That mass is again identified on this study. The mass has decreased in size and now measures 5.1 x 5.2 cm. The prior study also noted a 12 mm exophytic mass along the posterior aspect of the left kidney. That mass is also decreased in size and now measures 7 mm (image 125 of 256. The previous study also identified multiple osseous metastatic lesions. This included a roughly 5 cm expansile lesion involving the left 4th rib. That finding is again evident and no different. There was also a destructive mass eroding the right scapula. The mass measured 4.4 x 3.8 cm. On this study that mass is again identified and now measures 4.1 x 3.2 cm. The large destructive mass eroding the right ilium seen previously is also again visualized. This mass measures 6.5 x 4.3 cm as opposed to 7.2 x 4.9 cm on the previous study. There also appears to be a sizable lesion involving the left ischium. This measures 3.1 x 6.3 cm as opposed to 2.7 x 6.3 cm previously. There also continues to be some irregularity of the articulation of the sternum in the left 1st rib. This area did show increased activity on the whole body bone scan performed on 12/02/2020. However this may be secondary to degenerative disease alone. There is no new metastatic focus identified with certainty. The images through the thorax show that the heart size is within normal limits. There are extensive coronary calcifications noted. The aorta is not abnormally dilated and there is no sign of dissection. There is no defect within the pulmonary arteries to indicate a pulmonary embolus. There is no mediastinal or hilar adenopathy. There are several low density nodules involving both lobes of the thyroid.. The largest of these is in the inferior pole of the left lobe and measures 2.4 cm. These findings were not clearly evident on the prior study. I would recommend ultrasound of the thyroid gland be performed for further study. The lung bases remain generally clear. There is still mild chronic atelectasis/scar formation in the right lower lobe. The images through the abdomen and pelvis show that the solid organs seems similar to the prior exam. There is no evidence for metastatic disease or for an acute abnormality. There is diverticulosis of the sigmoid and descending colon but there is no sign of acute diverticulitis. The urinary bladder and prostate gland are grossly unremarkable. Impression: 1. The appearance of the CT chest, abdomen and pelvis exam has improved somewhat since the prior study. In particular, the mass involving the right kidney and the small nodule along the posterior aspect the left kidney have decreased in size slightly. The expansile lesions involving the right scapula and right ilium also measures slightly smaller than on the prior exam. 2. There is no acute abnormality of the chest, abdomen or pelvis identified. 3. Ultrasound of the thyroid gland would be recommended for further characterization of the low density nodules in each lobe. Dictated by: Dictated on workstation # [id number]
== END ==
LOC: RAD 07:45
PROVIDERS: ATTEND Internal Medicine Hospice and Palliative Medicine
DX: C64.1 Malignant neoplasm of right kidney, except renal pelvis (principal); N28.89 Other specified disorders of kidney and ureter; M75.91 Shoulder lesion, unspecified, right shoulder; M89.9 Disorder of bone, unspecified
CPT/HCPCS: 36415; 71260; 74177; 80053; 85025

== ENCOUNTER → 2021-05-09 | Outpatient (CLI) | payer MEDICARE ==
[~2021-05-09] MED LIST changes: -CATHETER FLUSH 10 ML SYR IV PRN; -HOLD METFORMIN - RECEIVED CONTRAST 20 ML VIAL IV SCH; -IOHEXOL 350 MG/ML 100 ML (OMNIPAQUE 350) VIAL IV ONE; -NS 100 ML (IVPB) BAG IV ONE
[2021-05-09 14:40] LABS: BASOPHILS % (AUTO) 1 % (0-10); EOSINOPHILS # (AUTO) 0.2 10^3/uL (0.0-0.3); EOSINOPHILS % (AUTO) 5 % (0-10); HEMATOCRIT 41 % (40-54); HEMOGLOBIN 13.9 g/dL (13.3-17.7); LYMPHOCYTES # (AUTO) 1.2 10^3/uL (1.0-4.0); LYMPHOCYTES % (AUTO) 27 % (12-44); MEAN CORPUSCULAR HEMOGLOBIN 33 pg (25-34); MEAN CORPUSCULAR HGB CONC 34 g/dL (32-36); MEAN CORPUSCULAR VOLUME 98 fL (80-99); MONOCYTES # (AUTO) 0.5 10^3/uL (0.0-1.0); MONOCYTES % (AUTO) 11 % (0-12); NEUTROPHILS # (AUTO) 2.5 10^3/uL (1.8-7.8); NEUTROPHILS % (AUTO) 57 % (42-75); PLATELET COUNT 208 10^3/uL (130-400); WHITE BLOOD COUNT 4.4 10^3/uL (4.3-11.0)
== END ==
LOC: LAB 14:22
PROVIDERS: ATTEND Internal Medicine Hospice and Palliative Medicine
DX: C61 Malignant neoplasm of prostate (principal); C64.1 Malignant neoplasm of right kidney, except renal pelvis
CPT/HCPCS: 36415; 85025

== ENCOUNTER → 2021-05-14 | Outpatient (CLI) | payer MEDICARE ==
[~2021-05-14] VITALS: Ht 170.2 cm; Wt 80.5 kg
[~2021-05-14] MED LIST changes: +LIDOCAINE 1% INJ 20 ML 20 ML VIAL INJ ONE
--- NOTE | 2021-05-14 13:46 | Diagnostic Imaging Report ---
INDICATION: Bilateral thyroid nodules. Patient presents for bilateral thyroid fine-needle aspiration and biopsy. Patient brought to the procedure room placed on table in the supine position. Ultrasound imaging of the right and left neck was performed to evaluate appropriate entry site. The neck was prepped and draped in the usual sterile fashion. Small amount 1% lidocaine was utilized for local anesthesia. A total of 4 passes were made into the solid hypoechoic nodule with microcalcifications in the mid right lobe slightly medial utilizing 25-gauge needles and fine-needle aspiration technique. A single pass was made with a Rotex needle and Rotex biopsy was performed. Next, total of 4 passes were made into the dominant solid mass in the lower pole left lobe of the thyroid utilizing 25-gauge needles and fine-needle aspiration technique. Single pass was made with a Rotex needle. Patient tolerated procedure well and left from stable condition. IMPRESSION: Successful ultrasound-guided fine-needle aspiration and Rotex biopsy of right and left lobe thyroid nodules, as described. Pathology results are currently pending. Dictated by: Dictated on workstation # [id number]
== END ==
LOC: RAD 10:41
PROVIDERS: ATTEND Nurse Practitioner
DX: E04.2 Nontoxic multinodular goiter (principal)
CPT/HCPCS: 10005; 10006

== ENCOUNTER → 2021-05-20 | Outpatient (CLI) | payer MEDICARE ==
[~2021-05-20] MED LIST changes: +CATHETER FLUSH 10 ML SYR IV PRN; +GADOBUTROL 10 MMOL/10 ML (GADAVIST) VIAL IV ONE; +HOLD METFORMIN - RECEIVED CONTRAST 20 ML VIAL IV SCH; +IOHEXOL 350 MG/ML 100 ML (OMNIPAQUE 350) VIAL IV ONE; -LIDOCAINE 1% INJ 20 ML 20 ML VIAL INJ ONE; +NS 100 ML (IVPB) BAG IV ONE
[2021-05-20 08:04] LABS: BASOPHILS % (AUTO) 1 % (0-10); EOSINOPHILS # (AUTO) 0.3 10^3/uL (0.0-0.3); EOSINOPHILS % (AUTO) 6 % (0-10); HEMATOCRIT 40 % (40-54); HEMOGLOBIN 13.1 g/dL (13.3-17.7); LYMPHOCYTES # (AUTO) 1.2 10^3/uL (1.0-4.0); LYMPHOCYTES % (AUTO) 27 % (12-44); MEAN CORPUSCULAR HEMOGLOBIN 33 pg (25-34); MEAN CORPUSCULAR HGB CONC 33 g/dL (32-36); MEAN CORPUSCULAR VOLUME 100 fL (80-99); MEAN PLATELET VOLUME 9.2 fL (9.0-12.2); MONOCYTES # (AUTO) 0.5 10^3/uL (0.0-1.0); MONOCYTES % (AUTO) 10 % (0-12); NEUTROPHILS # (AUTO) 2.4 10^3/uL (1.8-7.8); NEUTROPHILS % (AUTO) 56 % (42-75); PLATELET COUNT 191 10^3/uL (130-400); WHITE BLOOD COUNT 4.3 10^3/uL (4.3-11.0)
[2021-05-20 08:24] LABS: ALANINE AMINOTRANSFERASE 19 U/L (0-55); ALBUMIN 3.7 GM/DL (3.2-4.5); ALKALINE PHOSPHATASE 70 U/L (40-136); BILIRUBIN,TOTAL 0.3 MG/DL (0.1-1.0); BUN/CREATININE RATIO 12; CALCIUM 8.9 MG/DL (8.5-10.1); CARBON DIOXIDE 30 MMOL/L (21-32); CHLORIDE 102 MMOL/L (98-107); CREATININE SERUM 0.84 MG/DL (0.60-1.30); GFR ESTIMATED > 60; GLUCOSE 103 MG/DL (70-105); POTASSIUM 4.4 MMOL/L (3.6-5.0); SODIUM 139 MMOL/L (135-145); TOTAL PROTEIN 6.5 GM/DL (6.4-8.2)
--- NOTE | 2021-05-20 09:44 | Diagnostic Imaging Report ---
PROCEDURE: CT chest, abdomen, and pelvis with contrast. TECHNIQUE: Multiple contiguous axial images were obtained through the chest, abdomen, and pelvis after the administration of intravenous contrast. Auto Exposure Controls were utilized during the CT exam to meet ALARA standards for radiation dose reduction. INDICATION: Prostate cancer and renal mass. Compared with a CT chest, abdomen and pelvis dated 03/04/2021. CHEST: New groundglass opacity in the right upper and middle lobe anteriorly is developed suspicious for nonspecific infectious etiology. No soft tissue density, lung mass or soft tissue pulmonary nodularity. There is no axillary, hilar or mediastinal lymphadenopathy. An expansile lytic lesion in the medial aspect of the right scapular blade unchanged from prior. An expansile lytic lesion in the left 4th rib laterally is unchanged. No new osseous pathology. Abdomen pelvis: Heterogeneously enhancing but predominantly solid partly exophytic mass directed posteriorly off the upper pole of the right kidney remains strongly suggestive of renal cell carcinoma. This mass showed a slight interval reduction in size today is 4.9 x 4.5 cm, previously having measured 5.2 x 5.0 cm. Renal veins and cava are patent. There is no adrenal mass. Contralateral unobstructed left kidney is stable and normal. Pancreas, spleen and liver is unremarkable. No bile duct dilatation. The gallbladder normal. No perinephric or retroperitoneal lymphadenopathy. No mesenteric mass. No ascites or bowel obstruction. An expansile lytic lesion top of the right iliac crest is unchanged. Lucency likely lytic deposit to the left hemipelvis supra acetabular. Caudally to the level of the roof without pathological fracture showed no change. No new bony lesion. No bowel, biliary or urinary tract obstruction. No inflammatory process. No pneumatosis or free gas. No abscess, hematoma, ascites or fluid collection. Nonaneurysmal aortic atherosclerosis is stable. IMPRESSION: Right renal mass showed further interval reduction in size. Stable expansile lytic bony lesions in the chest abdomen and pelvis. No findings suggestive of soft tissue metastasis. A new groundglass opacity in the right lung suspect for nonspecific inflammatory or infectious etiologies. Dictated by: Dictated on workstation # [id number]
--- NOTE | 2021-05-20 09:55 | Diagnostic Imaging Report ---
PROCEDURE: MR imaging of the brain with and without contrast. TECHNIQUE: Multiplanar, multisequence MR imaging of the brain was performed with and without contrast. INDICATION: History of renal cancer and prostate cancer. Vertigo. Evaluate for metastatic disease. COMPARISON: none Findings: No acute ischemia, mass, or hemorrhage. No abnormal enhancement. Scattered T2 hyperintense signal is seen throughout the periventricular and subcortical white matter. The ventricles and cortical sulci are prominent. The basilar cisterns are symmetric and unremarkable. The sellar and suprasellar regions have a normal appearance. The brainstem and posterior fossa are unremarkable. The paranasal sinuses demonstrate normal signal characteristics. Small amount of fluid is seen in the right mastoid air cells. The globes and orbits are symmetric and unremarkable. The scalp and calvarium have a normal appearance. Impression: 1. No acute ischemia, mass, or hemorrhage. No abnormal enhancement is seen to suggest intracranial metastatic disease. 2. Generalized parenchymal volume loss with scattered chronic microvascular disease. Dictated by: Dictated on workstation # [id number]
== END ==
LOC: RAD 08:45
PROVIDERS: ATTEND Physician Assistant
DX: N28.89 Other specified disorders of kidney and ureter (principal); E03.2 Hypothyroidism due to medicaments and other exogenous substances; I67.89 Other cerebrovascular disease; R19.09 Other intra-abdominal and pelvic swelling, mass and lump; R91.8 Other nonspecific abnormal finding of lung field; Z85.46 Personal history of malignant neoplasm of prostate; Z85.528 Personal history of other malignant neoplasm of kidney
CPT/HCPCS: 36415; 70553; 71260; 74177; 80053; 84443; 85025

== ENCOUNTER → 2021-06-02 | Outpatient (CLI) | payer MEDICARE ==
[~2021-06-02] MED LIST changes: -CATHETER FLUSH 10 ML SYR IV PRN; -GADOBUTROL 10 MMOL/10 ML (GADAVIST) VIAL IV ONE; -HOLD METFORMIN - RECEIVED CONTRAST 20 ML VIAL IV SCH; -IOHEXOL 350 MG/ML 100 ML (OMNIPAQUE 350) VIAL IV ONE; -NS 100 ML (IVPB) BAG IV ONE
--- NOTE | 2021-06-02 09:29 | Diagnostic Imaging Report ---
PROCEDURE: US left lower extremity venous. TECHNIQUE: Multiple real-time grayscale images were obtained over the left lower extremity in various projections. Additional duplex Doppler and color Doppler images were also obtained. INDICATION: Pain and swelling. FINDINGS: The left common femoral, superficial femoral, popliteal veins and tibial veins demonstrate normal response to compression, augmentation, and Valsalva. There are no abnormal left lower extremity fluid collections or masses. IMPRESSION: No evidence of deep venous thrombosis in the left lower extremity. Dictated by: Dictated on workstation # [id number]
== END ==
LOC: RAD 08:45
PROVIDERS: ATTEND Internal Medicine Hospice and Palliative Medicine
DX: C61 Malignant neoplasm of prostate (principal); M79.662 Pain in left lower leg; M79.89 Other specified soft tissue disorders

== ENCOUNTER → 2021-06-05 | Outpatient (CLI) | payer MEDICARE ==
[~2021-06-05] MED LIST changes: +APIX5TAB PO
== END ==
LOC: LABNPT 06:24
PROVIDERS: ATTEND Internal Medicine Hospice and Palliative Medicine
DX: C64.1 Malignant neoplasm of right kidney, except renal pelvis (principal); Z20.822 Contact with and (suspected) exposure to COVID-19
CPT/HCPCS: 87635

== ENCOUNTER 2021-06-08 14:19 | Emergency (ER) | payer MEDICARE ==
[~2021-06-08] VITALS: Ht 177.8 cm; Wt 80.5 kg
[~2021-06-08 14:19] MED LIST changes: -APIX5TAB PO
--- NOTE | 2021-06-08 14:55 | ED Cough/URI ---
General Chief Complaint: Cough/Cold/Flu Symptoms Stated Complaint: COUGH, SORE THROAT, SOB Source: patient Exam Limitations: no limitations History of Present Illness Date Seen by Provider: Jun 08, 2021 Time Seen by Provider: 14:34 Initial Comments Patient to the ER by private conveyance with chief complaint of 1 week of sore throat malaise and some mild dyspnea on exertion without fever. He had a negative Covid test on , 3 days prior to arrival. Today however he started to get some chest pain worse with deep inspiration which remind him of when he was diagnosed with pleurisy many years ago. Pains mostly on the right side. Has had nagging, nonproductive cough for the past day. No fevers or chills. No nausea vomiting or diarrhea. No known sick contacts. He has a history of coronary disease with a stent known to Dr. Villa. He sees oncology at [facility] for stage IV renal cell carcinoma and a spot on the top of his lung. He had a CT with contrast recently. He had a Covid vaccine in December with Moderna. CT of the chest abdomen pelvis 05/20/2021, 18 days ago. Right renal mass showed further interval reduction in size. Stable expansile lytic bone lesions in the chest abdomen and pelvis. No soft tissue metastasis. Groundglass opacity in the right lung suspect for nonspecific inflammatory or infectious etiologies. Allergies and Home Medications Allergies Coded Allergies: No Known Drug Allergies (Unverified , 10/18/11) Home Medications Acetaminophen 325 Mg Tablet, 650 MG PO Q6H PRN, (Reported) Aspirin 81 Mg Tabec, 81 MG PO DAILY, (Reported) Clopidogrel 75 Mg Tablet, 75 MG PO DAILY, (Reported) Lisinopril 5 Mg Tablet, 5 MG PO HS, (Reported) Metoprolol Succinate 25 Mg Tab.sr.24h, 25 MG PO DAILY, (Reported) Phenylephrine/Diphenhydramine 1 Each Tablet, 1 EACH PO PRN, (Reported) Pravastatin Sodium 20 Mg Tablet, 20 MG PO DAILY, (Reported) Patient Home Medication List Home Medication List Reviewed: Yes Review of Systems Review of Systems Constitutional: No chills, No diaphoresis EENTM: No ear discharge, No ear pain Respiratory: cough, dyspnea on exertion; No phlegm; short of breath; No wheezing Cardiovascular: see HPI, chest pain; No edema; Hx of Intervention, vascular heart diseas Gastrointestinal: No abdominal pain, No nausea, No vomiting Genitourinary: No discharge, No dysuria Musculoskeletal: No back pain, No joint pain Skin: No pruritus, No rash Psychiatric/Neurological: Denies Headache, Denies Numbness All Other Systems Reviewed Negative Unless Noted: Yes Past Atwycok-Chgtmh-Omzwdw Hx Patient Social History Tobacco Use?: Yes Tobacco type used: Cigarettes Smoking Status: Current Everyday Smoker (Pack per day) Use of E-Cig and/or Vaping dev: No Substance use?: No Seasonal Allergies Seasonal Allergies: No Past Medical History Surgeries: Yes (neck) Coronary Stent Respiratory: No Cardiac: Yes (stent placement 10 years ago) Coronary Artery Disease, High Cholesterol, Hypertension Neurological: No Reproductive Disorders: No Genitourinary: No Gastrointestinal: No Musculoskeletal: No Endocrine: No HEENT: No Cancer: Yes Prostate, Bone, Kidney Psychosocial: No Integumentary: No Blood Disorders: No Physical Exam Vital Signs - First Documented 06/08/21 15:30 Temp 36.4 Pulse 91 Resp 18 B/P (MAP) 143/86 (105) Pulse Ox 98 Capillary Refill : Height: 5'9.00" Weight: 190lbs. oz. 86.768831si; 27.78 BMI Method:Stated General Appearance: WD/WN, mild distress Eyes: Bilateral Eye Normal Inspection, Bilateral Eye PERRL, Bilateral Eye EOMI HEENT: PERRL/EOMI, normal ENT inspection, pharynx normal Neck: full range of motion, supple, normal inspection Respiratory: lungs clear, normal breath sounds, respiratory distress (24 to 26 breaths/min, 93% after ambulating to room, 96% while at rest.), decreased breath sounds (Bilateral); No rales, No wheezing Cardiovascular: normal peripheral pulses, regular rate, rhythm, no edema, tachycardia (106 after ambulation, down to the 80s while at rest) Gastrointestinal: non tender, soft Neurologic/Psychiatric: alert, normal mood/affect, oriented x 3 Skin: normal color, warm/dry Focused Exam Lactate Level 06/08/21 14:55: Lactic Acid Level 1.14 Lactic Acid Level Laboratory Tests Test 06/08/21 14:55 Lactic Acid Level 1.14 MMOL/L (0.50-2.00) Progress/Results/Core Measures Suspected Sepsis SIRS Temperature: Pulse: Respiratory Rate: Laboratory Tests 06/08/21 14:55: White Blood Count 5.4 Blood Pressure / Mean: 06/08/21 14:55: Lactic Acid Level 1.14 Laboratory Tests 06/08/21 14:55: Creatinine 0.83, Platelet Count 149, Total Bilirubin 0.5 06/08/21 16:05: INR Comment 0.9 Results/Orders Lab Results Laboratory Tests Test 06/08/21 14:37 06/08/21 14:38 06/08/21 14:55 06/08/21 16:05 Range/Units Influenza Type A (RT-PCR) Not Detected Not Detecte Influenza Type B (RT-PCR) Not Detected Not Detecte SARS-CoV-2 RNA (RT-PCR) Not Detected Not Detecte Blood Gas Puncture Site R RAD Blood Gas Patient Temperature 96.6 Arterial Blood pH 7.40 7.37-7.43 Arterial Blood Partial Pressure CO2 42 35-45 MMHG Arterial Blood Partial Pressure O2 73 L 79-93 MMHG Arterial Blood HCO3 26 23-27 MMOL/L Arterial Blood Total CO2 26.9 21.0-31.0 MMOL/L Arterial Blood Oxygen Saturation 95 94-100 % Arterial Blood Base Excess 1.3 -2.5-2.5 MMOL/L Anthony Test YES-POS Blood Gas Ventilator Setting NO Blood Gas Inspired Oxygen RA White Blood Count 5.4 4.3-11.0 10^3/uL Red Blood Count 3.78 L 4.30-5.52 10^6/uL Hemoglobin 13.1 L 13.3-17.7 g/dL Hematocrit 39 L 40-54 % Mean Corpuscular Volume 104 H 80-99 fL Mean Corpuscular Hemoglobin 35 H 25-34 pg Mean Corpuscular Hemoglobin Concent 33 32-36 g/dL Red Cell Distribution Width 13.7 10.0-14.5 % Platelet Count 149 130-400 10^3/uL Mean Platelet Volume 9.8 9.0-12.2 fL Immature Granulocyte % (Auto) 0 % Neutrophils (%) (Auto) 63 42-75 % Lymphocytes (%) (Auto) 21 12-44 % Monocytes (%) (Auto) 14 H 0-12 % Eosinophils (%) (Auto) 2 0-10 % Basophils (%) (Auto) 0 0-10 % Neutrophils # (Auto) 3.4 1.8-7.8 10^3/uL Lymphocytes # (Auto) 1.1 1.0-4.0 10^3/uL Monocytes # (Auto) 0.7 0.0-1.0 10^3/uL Eosinophils # (Auto) 0.1 0.0-0.3 10^3/uL Basophils # (Auto) 0.0 0.0-0.1 10^3/uL Immature Granulocyte # (Auto) 0.0 0.0-0.1 10^3/uL Sodium Level 140 135-145 MMOL/L Potassium Level 3.9 3.6-5.0 MMOL/L Chloride Level 102 98-107 MMOL/L Carbon Dioxide Level 27 21-32 MMOL/L Anion Gap 11 5-14 MMOL/L Blood Urea Nitrogen 13 7-18 MG/DL Creatinine 0.83 0.60-1.30 MG/DL Estimat Glomerular Filtration Rate 92 BUN/Creatinine Ratio 16 Glucose Level 117 H 70-105 MG/DL Lactic Acid Level 1.14 0.50-2.00 MMOL/L Calcium Level 9.1 8.5-10.1 MG/DL Corrected Calcium 9.3 8.5-10.1 MG/DL Total Bilirubin 0.5 0.1-1.0 MG/DL Aspartate Amino Transf (AST/SGOT) 16 5-34 U/L Alanine Aminotransferase (ALT/SGPT) 16 0-55 U/L Alkaline Phosphatase 67 40-136 U/L Troponin I < 0.028 <0.028 NG/ML Total Protein 6.4 6.4-8.2 GM/DL Albumin 3.7 3.2-4.5 GM/DL Procalcitonin 0.04 <0.10 NG/ML Prothrombin Time 13.0 12.2-14.7 SEC INR Comment 0.9 0.8-1.4 Activated Partial Thromboplast Time 20 L 24-35 SEC D-Dimer 3.33 H 0.00-0.49 UG/ML My Orders Orders - YAZMIN MCINTYRE Ed Iv/Invasive Line Start (06/08/21 14:46) Ns Iv 1000 Ml (Sodium Chloride 0.9%) (06/08/21 15:00) Cbc With Automated Diff (06/08/21 14:46) Comprehensive Metabolic Panel (06/08/21 14:46) Blood Culture (06/08/21 14:46) Sputum Culture (06/08/21 14:46) Urinalysis (06/08/21 14:46) Urine Culture (06/08/21 14:46) Protime With Inr (06/08/21 14:46) Partial Thromboplastin Time (06/08/21 14:46) Chest 1 View, Ap/Pa Only (06/08/21 14:46) Ed Iv/Invasive Line Start (06/08/21 14:46) Ed Iv/Invasive Line Start (06/08/21 14:46) Ekg Tracing (06/08/21 14:46) Troponin I (06/08/21 14:46) Vital Signs Adult Sepsis Patie Q15M (06/08/21 14:46) O2 (06/08/21 14:46) Remove Rings In Anticipation O (06/08/21 14:46) Lactic Acid Analyzer (06/08/21 14:46) Covid 19 Inhouse Test (06/08/21 14:46) Procalcitonin (Pct) (06/08/21 14:46) Fibrin Degradation Products (06/08/21 14:46) Influenza A And B By Pcr (06/08/21 14:46) Arterial Blood Gas (06/08/21 15:12) Aspirin Chewable Tablet (Baby Aspirin Ch (06/08/21 16:30) Nitroglycerin 0.4 Mg Btl 25's (Nitrostat (06/08/21 16:30) Morphine Injection (Morphine Injection (06/08/21 16:51) Ct Angio Chest W (06/08/21 16:51) Iohexol Injection (Omnipaque 350 Mg/Ml 1 (06/08/21 17:15) Ns (Ivpb) (Sodium Chloride 0.9% Ivpb Bag (06/08/21 17:15) Sodium Chloride Flush (Catheter Flush Sy (06/08/21 17:15) Received Contrast (Hold Metformin- Contr (06/08/21 17:15) Apixaban Tablet (Eliquis Tablet) (06/08/21 18:30) Medications Given in ED Current Medications Medications Dose Ordered Sig/Amrik Route Start Time Stop Time Status Last Admin Dose Admin Aspirin 324 mg ONCE ONCE PO 06/08/21 16:30 06/08/21 16:31 DC 06/08/21 16:25 324 MG Iohexol 100 ml ONCE ONCE IV 06/08/21 17:15 06/08/21 17:16 DC 06/08/21 17:57 71 ML Nitroglycerin 0.4 mg NEEDED PRN SL 06/08/21 16:30 06/08/21 16:37 0.4 MG Sodium Chloride 10 ml NEEDED PRN IV 06/08/21 17:15 06/08/21 17:57 10 ML Sodium Chloride 100 ml ONCE ONCE IV 06/08/21 17:15 06/08/21 17:16 DC 06/08/21 17:57 80 ML Vital Signs/I&O 06/08/21 15:30 Temp 36.4 Pulse 91 Resp 18 B/P (MAP) 143/86 (105) Pulse Ox 98 Capillary Refill : Progress Note #1: Time: 14:56 Progress Note Pleuritic type chest pain could be from a pneumonia as seen on CT from 18 days ago, Covid, heart failure leading to an atypical angina. Plan to swab him get some labs chest x-ray. Pulmonary embolism is a little less likely if the pathology lines up with an infectious etiology given his history of groundglass pattern on CT previously. We will consider doing CT angiogram if we cannot find a better option to explain all of his symptoms. He has mild borderline hypoxemia on ambulation/exertion but his work of breathing starts to approach baseline while at rest. Progress Note #2: Time: 16:50 Progress Note Patient does have a likely right lower lobe infiltrate but this could also be related to pulmonary embolism given his history of cancer, no fevers, no white count or left shift, no significant rise in procalcitonin. He still has modest elevation of heart rate with any action and oxygen saturation 93% on room air at rest 22 breaths/min. Plan to trial some morphine 4 mg for his pain since nitroglycerin did not help his pain. Because of his history of stent he is not a good candidate for NSAIDs. ECG Initial ECG Impression Date: Jun 08, 2021 Initial ECG Impression Time: 15:15 Initial ECG Rate: 77 Initial ECG Intervals: QT (472) Initial ECG Impression: Normal, Nonspecific Changes Initial ECG Comparisson: Unchanged Comment Normal sinus rhythm with one half block of ST depression in the inferior leads II, 3, aVF which is conserved from previous EKGs in December 2020. Diagnostic Imaging Diagonstic Imaging: Xray Plain Films/CT/US/NM/MRI: chest Comments [facility] [place], [place] NAME: ROCK Myranda [facility] REC#: [id number] PT STATUS: REG ER : 1955 PHYSICIAN: YAZMIN MCINTYRE MD ADMIT DATE: 06/08/21/ER Draft Date of Exam:06/08/21 CHEST 1 VIEW, AP/PA ONLY INDICATION: Sepsis. EXAMINATION: Chest, 06/08/2021. COMPARISON: 07/01/2021. FINDINGS: There is a vague infiltrate at the right lung base with remaining lungs clear. Heart and pulmonary vasculature are normal. No pneumothorax. No effusion. There are old rib fractures laterally in the left upper chest similar to previous imaging. IMPRESSION: Likely infiltrate at the right lung base. Dictated on workstation # [id number] Dict: 06/08/21 1618 Trans: 06/08/21 1627 [facility] [id number] Interpreted by: DEBBIE COSBY MD Electronically signed by: Reviewed: Reviewed by Me Diagonstic Imaging: CT Plain Films/CT/US/NM/MRI: chest Comments Bilateral pulmonary embolus without evidence of right-sided heart failure, saddle thrombus. Reviewed: Reviewed by Me Departure Impression Primary Impression: Pulmonary embolism Qualified Codes: I26.94 - Multiple subsegmental pulmonary emboli without acute cor pulmonale Disposition: HOME, SELF-CARE Condition: Stable Departure-Patient Inst. Decision time for Depature: 18:18 Referrals: SHANIKA BENSON MD (PCP/Family) Primary Care Physician Patient Instructions: Pulmonary Embolism (Blood Clot in the Lungs) (DC) Add. Discharge Instructions: Eliquis twice a day until told otherwise by your oncologist. Keep your follow-up appointment with your oncologist tomorrow. All discharge instructions reviewed with patient and/or family. Voiced understanding. Scripts Apixaban (Eliquis) 5 Mg Tablet 5 MG PO BID for 30 Days, #60 TAB 0 Refills Prov: YAZMIN MCINTYRE 06/08/21 YAZMIN MCINTYRE Jun 08, 2021 14:55
[2021-06-08] MEDS ORDERED: NS IV 1000 ML 1,000 ML IV SCH (15:00)
[2021-06-08 15:15] LABS: ABG BASE EXCESS 1.3 MMOL/L (-2.5-2.5); ABG OXYGEN SATURATION 95 % (94-100); ABG PCO2 42 MMHG (35-45); ABG PO2 73 MMHG (79-93); ABG TCO2 26.9 MMOL/L (21.0-31.0); ALLENS TEST YES-POS; INSPIRED O2 RA; PATIENT TEMP 96.6; VENTILATOR NO
[2021-06-08 15:22] LABS: ALBUMIN 3.7 GM/DL (3.2-4.5); CHLORIDE 102 MMOL/L (98-107); POTASSIUM 3.9 MMOL/L (3.6-5.0); SODIUM 140 MMOL/L (135-145)
[2021-06-08 15:23] LABS: BASOPHILS % (AUTO) 0 % (0-10); CALCIUM 9.1 MG/DL (8.5-10.1); EOSINOPHILS # (AUTO) 0.1 10^3/uL (0.0-0.3); EOSINOPHILS % (AUTO) 2 % (0-10); HEMATOCRIT 39 % (40-54); HEMOGLOBIN 13.1 g/dL (13.3-17.7); LYMPHOCYTES # (AUTO) 1.1 10^3/uL (1.0-4.0); LYMPHOCYTES % (AUTO) 21 % (12-44); MEAN CORPUSCULAR HEMOGLOBIN 35 pg (25-34); MEAN CORPUSCULAR HGB CONC 33 g/dL (32-36); MEAN CORPUSCULAR VOLUME 104 fL (80-99); MEAN PLATELET VOLUME 9.8 fL (9.0-12.2); MONOCYTES # (AUTO) 0.7 10^3/uL (0.0-1.0); MONOCYTES % (AUTO) 14 % (0-12); NEUTROPHILS # (AUTO) 3.4 10^3/uL (1.8-7.8); NEUTROPHILS % (AUTO) 63 % (42-75); PLATELET COUNT 149 10^3/uL (130-400); WHITE BLOOD COUNT 5.4 10^3/uL (4.3-11.0)
[2021-06-08 15:24] LABS: GLUCOSE 117 MG/DL (70-105)
[2021-06-08 15:25] LABS: TOTAL PROTEIN 6.4 GM/DL (6.4-8.2)
[2021-06-08 15:26] LABS: BILIRUBIN,TOTAL 0.5 MG/DL (0.1-1.0); CARBON DIOXIDE 27 MMOL/L (21-32)
[2021-06-08 15:28] LABS: ALKALINE PHOSPHATASE 67 U/L (40-136); CREATININE SERUM 0.83 MG/DL (0.60-1.30); GFR ESTIMATED 92
[2021-06-08 15:29] LABS: BUN/CREATININE RATIO 16
[2021-06-08 15:31] LABS: ALANINE AMINOTRANSFERASE 16 U/L (0-55)
[2021-06-08] MEDS: NITROGLYCERIN 0.4 MG SL TABS BTL 25'S SL PRN ×2 (16:26→16:37)
--- NOTE | 2021-06-08 16:27 | Diagnostic Imaging Report ---
INDICATION: Sepsis. EXAMINATION: Chest, 06/08/2021. COMPARISON: 07/01/2021. FINDINGS: There is a vague infiltrate at the right lung base with remaining lungs clear. Heart and pulmonary vasculature are normal. No pneumothorax. No effusion. There are old rib fractures laterally in the left upper chest similar to previous imaging. IMPRESSION: Likely infiltrate at the right lung base. Dictated by: Dictated on workstation # [id number]
[2021-06-08] MEDS ORDERED: ASPIRIN 81 MG CHEW (CHILDREN'S ASA) PO ONE (16:30)
[2021-06-08 16:35] LABS: FIBRIN DEGRADATION PRODUCTS 3.33 UG/ML (0.00-0.49); INR 0.9 (0.8-1.4)
[2021-06-08] MEDS ORDERED: morphine INJ 10 MG/ML 1ML (SYR OR VIAL) IVP STA ×2 (16:51→18:24)
[2021-06-08] MEDS ORDERED: CATHETER FLUSH 10 ML SYR IV PRN (17:15)
[2021-06-08] MEDS ORDERED: IOHEXOL 350 MG/ML 100 ML (OMNIPAQUE 350) VIAL IV ONE (17:15)
[2021-06-08] MEDS ORDERED: NS 100 ML (IVPB) BAG IV ONE (17:15)
[2021-06-08] MEDS ORDERED: HOLD METFORMIN - RECEIVED CONTRAST 20 ML VIAL IV SCH (17:15)
[2021-06-08] MEDS ORDERED: APIX5TAB PO (18:20)
--- NOTE | 2021-06-08 18:27 | Diagnostic Imaging Report ---
PROCEDURE: CT angiography of the chest with contrast. TECHNIQUE: Multiple contiguous axial images were obtained through the chest after uneventful bolus administration of intravenous contrast. 3D reconstructed CTA MIP acquisitions were also performed. Auto Exposure Controls were utilized during the CT exam to meet ALARA standards for radiation dose reduction. INDICATION: 65-year-old male with sore throat, cough, right-sided rib pain, stage IV RCC with prostate cancer and METS. Suspected pulmonary embolism. COMPARISON: 05/20/2021. FINDINGS: There are a few shotty benign-appearing axillary nodes but no evidence of axillary adenopathy. There is no also no hilar or mediastinal adenopathy. Cardiac contour is normal. Thoracic aortic contour is also normal with no evidence of aneurysm or dissection. Coronary calcifications are seen. The pulmonary outflow tract is patent. However, there are intraluminal filling defects in the distal aspect of the right and left pulmonary arteries with the filling defects extending into the upper and lower lobe pulmonary arteries as well as the right middle lobe pulmonary artery. This is more prominent on the right. There appears to be a near normal RV/LV ratio at this time. Lungs show a few patchy alveolar infiltrates but no confluent consolidations. There is no effusion or pneumothorax. No discrete lung nodule seen. Bone windows do show expansile lesion involving the lateral aspect of the left 4th rib as would be seen with a metastatic RCC. Similarly, the expansile destructive bony lesion involving the right scapula is also noted. IMPRESSION: 1. Findings are consistent with a pulmonary embolism with intraluminal thrombus seen in the the upper and lower lobe pulmonary arteries as well as the right middle lobe pulmonary artery. The pulmonary outflow track however is patent. The RV/LV ratio appears to be near normal. 2. A few patchy alveolar infiltrates but no significant consolidations. 3. No discrete lung nodule seen. 4. Bony metastatic changes are seen primarily involving the left 4th rib and right scapula. Dictated by: Dictated on workstation # [id number]
[2021-06-08] MEDS ORDERED: APIXABAN 5 MG (ELIQUIS) TABLET PO ONE (18:30)
[2021-06-08 18:37] VITALS: BP 125/80
--- OUTSIDE RECORDS SUMMARY | 2021-06-09 15:41 | XMS REPORT | Encounter Summary ---
Author Author [facility] Organization [facility] Address Unknown Phone Unavailable Care Team Providers Care Orthopedic Nurse Name Role Phone Sudhir Winston MD Unavailable Katelyn Thompson MD Unavailable [phone] Alo Ramirez MD Unavailable Self, Referral PCP Unavailable Katelyn Thompson MD Unavailable [phone] Encounter Details Care Team Description Date Type Department 06/09/2021 Travel Social History Date Tobacco Use Types Packs/Day Years Used Current Every Day Smoker Cigarettes 1.5 30 Smokeless Tobacco: Former Snuff Quit: 1984 User Drinks/Week oz/Week Comments Alcohol Use 6 Cans of beer 6.0 Yes Sex Assigned at Date Recorded Not on file Date Recorded COVID-19 Exposure Response 06/09/2021 2:29 PM CDT In the last month, have you been in contact with No / Unsure someone who was confirmed or suspected to have Coronavirus / COVID-19? documented as of this encounter Functional Status Date of Assessment Functional Status Response 12/04/2019 Does the patient have a hearing impairment: No 12/04/2019 Does the patient have a visual impairment: No 12/04/2019 Does the patient have impaired ambulation: Yes 12/04/2019 Does the patient have an activity of daily living No (ADL) impairment: 12/04/2019 Does the patient have an instrumental activity of No daily living (IADL) impairment: Date of Assessment Cognitive Status Response 12/04/2019 Does the patient have a cognitive impairment: No documented as of this encounter Plan of Treatment Care Team Description Date Type Specialty Katelyn Thompson MD [address] [facility] [place] [address] [phone] 06/09/2021 Hospital Oncology Encounter documented as of this encounter Visit Diagnoses Not on filedocumented in this encounter Additional Health Concerns Assessment Noted Time PHQ-2 Depression Total Score: 2 12/04/2019 10:40 AM [employer] documented as of this encounter
--- OUTSIDE RECORDS SUMMARY | 2021-06-09 15:41 | XMS REPORT | Encounter Summary ---
Author Author [facility] Organization [facility] Address Unknown Phone Unavailable Care Team Providers Care Sheetfed Press Operator Name Role Phone Sudhir Winston MD Unavailable Katelyn Thompson MD Unavailable [phone] Alo Ramirez MD Unavailable Self, Referral PCP Unavailable Katelyn Thompson MD Unavailable [phone] Encounter Details Care Team Description Date Type Department Katelyn Thompson MD [address] [place] [address] [phone] Malignant neoplasm of right kidney (HCC) (Primary Dx); Prostate cancer (HCC); Hypothyroidism due to medication 06/09/2021 Lab Only Oncology: [address] [place], [place] [phone] Social History Date Tobacco Use Types Packs/Day [...] Description Date Type Specialty Katelyn Thompson MD [address] [facility] [place] [address] [phone] 06/09/2021 Hospital Oncology Encounter Date/Time Name Type Priority Associated Diag noses 06/09/2021 2:40 PM CDT 25-OH VITAMIN D (D2 + D3) Lab Routine Francy gnant neoplasm of right kidney (HCC) documented as of this encounter Procedures Comments Procedure Name Priority Date/Time Associated Diag nosis PHOSPHORUS Routine 06/09/2021 Prostate cancer (HCC) 2:40 PM CDT Malignant neoplasm of right kidney (HCC) MAGNESIUM Routine 06/09/2021 Prostate cancer (HCC) 2:40 PM CDT Malignant neoplasm of right kidney (HCC) COMPREHENSIVE METABOLIC Routine 06/09/2021 Malign ant neoplasm of PANEL 2:40 PM CDT right kidney (HCC) documented in this encounter Results * PHOSPHORUS (06/09/2021 2:40 PM CDT) Phosphorus 3.8 2.0 - 4.5 MG/DL [facility] Specimen Blood Performing Organization Address City/[facility]/ZIP Code P lana Number [facility] [address] [place] [address] * MAGNESIUM (06/09/2021 2:40 PM CDT) Magnesium 1.8 1.6 - 2.6 mg/dL [facility] Specimen Blood Performing Organization Address City/[facility]/ZIP Code P lana Number [facility] [address] [place] [address] * COMPREHENSIVE METABOLIC PANEL (06/09/2021 2:40 PM CDT) Sodium 135 (L) 137 - 147 MMOL/L [facility] Potassium 4.2 3.5 - 5.1 MMOL/L [facility] Chloride 101 98 - 110 MMOL/L [facility] Glucose 147 (H) 70 - 100 MG/DL [facility] Blood Urea 17 7 - 25 MG/DL [facility] Nitrogen Creatinine 0.91 0.4 - 1.24 MG/DL [facility] Calcium 9.6 8.5 - 10.6 MG/DL [facility] Total Protein 6.7 6.0 - 8.0 G/DL [facility] Total Bilirubin 0.6 0.3 - 1.2 MG/DL [facility] Albumin 3.8 3.5 - 5.0 G/DL [facility] Alk Phosphatase 70 25 - 110 U/L [facility] AST (SGOT) 21 7 - 40 U/L [facility] CO2 28 21 - 30 MMOL/L [facility] ALT (SGPT) 19 7 - 56 U/L [facility] Anion Gap 6 3 - 12 [facility] eGFR Non >60 >60 mL/min [facility] Comment: Malaysian The eGFR is not validated f or use in drug dosing adjustments. Continue to use estimated creatinine clearance per dosing reference text. Please contact the Clinical Pharmacist for questions. eGFR >60 >60 mL/min [facility] [place] Comment: The eGFR is not validated for use in drug dosing adjustments. Continue to use estimated creatinine clearance per dosing reference text. Please contact the Clinical Pharmacist for questions. Specimen Blood Performing Organization Address City/State/ZIP Code P lana Number [facility] [address] [place] [phone] documented in this encounter Visit Diagnoses Diagnosis Malignant neoplasm of right kidney (HCC ) - Primary Prostate cancer (HCC) Malignant neoplasm of prostate Hypothyroidism due to medication documented in this encounter Orders First Ordered Date Lab Orders Without Results Count Last Ordere d Date TSH WITH FREE T4 REFLEX 1 06/09/2021 documented in this encounter Additional Health Concerns Assessment Noted Time PHQ-2 Depression Total Score: 2 12/04/2019 10:40 AM 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
--- OUTSIDE RECORDS SUMMARY | 2021-06-09 15:41 | XMS REPORT | Encounter Summary ---
Author Author [facility] Organization [facility] Address Unknown Phone Unavailable Care Team Providers Care Epic Ambulatory Analyst Name Role Phone Sudhir Winston MD Unavailable Katelyn Thompson MD Unavailable [phone] Alo Ramirez MD Unavailable Self, Referral PCP Unavailable Katelyn Thompson MD Unavailable [phone] Reason for Visit * Treatment (Routine) Referred By Contact Referred To Contact Status Reason Specialty Diagnoses / Procedures Katelyn Thompson MD [address] [place] [address] Cc - Ww Cl Trmt 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
--- OUTSIDE RECORDS SUMMARY | 2021-06-09 15:41 | XMS REPORT | Encounter Summary ---
Author Author [facility] Organization [facility] Address Unknown Phone Unavailable Care Team Providers Care Fullerette Name Role Phone Sudhir Winston MD Unavailable Katelyn Thompson MD Unavailable [phone] Alo Ramirez MD Unavailable Self, Referral PCP Unavailable Katelyn Thompson MD Unavailable [phone] Encounter Details Care Team Description Date Type Department Katelyn Thompson MD [address] [facility] [place] [address] [phone] 05/08/2021 Documentation Oncology: [address] [place] [address] Social History Date Tobacco Use Types Packs/Day Years Used Current Every Day Smoker Cigarettes 1.5 30 Smokeless Tobacco: Former Snuff Quit: 1984 User Drinks/Week oz/Week Comments Alcohol Use 6 Cans of beer 6.0 Yes Sex Assigned at Date Recorded Not on file Date Recorded COVID-19 Exposure Response 04/14/2021 8:46 AM CDT In the last month, have you [...] impairment: No documented as of this encounter Progress Notes * Sandy March RN - 05/08/2021 2:12 PM CDT Lab orders faxed to [facility] for tomorrow since pt changed appt to [facility] on Wednesday. 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
--- OUTSIDE RECORDS SUMMARY | 2021-06-09 15:41 | XMS REPORT | Encounter Summary ---
Author Author [facility] Organization [facility] Address Unknown Phone Unavailable Care Team Providers Care Occupational Medicine Specialist Name Role Phone Sudhir Winston MD Unavailable Katelyn Thompson MD Unavailable [phone] Alo Ramirez MD Unavailable Self, Referral PCP Unavailable Katelyn Thompson MD Unavailable [phone] Reason for Visit * Reason Onset Date Comments Medication Refill 05/07/2021 Encounter Details Care Team Description Date Type Department Katelyn Thompson MD [address] [facility] [place] [address] [phone] 05/07/2021 Refill Oncology: [facility] [address] [place] [address] Social History Date Tobacco Use Types Packs/Day [...] impairment: No documented as of this encounter Ordered Prescriptions Start Date End Date Prescription Sig Dispensed Refills 05/07/2021 06/05/2021 morphine SR (MS CONTIN) Take one 60 tablet 0 30 mg ER tablet tablet by mouth every 12 hours documented in this encounter Plan of Treatment Care Team Description Date Type Specialty Katelyn Thompson MD [address] [place], [place] [id number] 06/09/2021 Hospital Oncology Encounter documented as of this encounter Visit Diagnoses Not on filedocumented in this encounter Discontinued Medications Start Date End Date Medication Sig Discontinue Reason 04/02/2021 05/07/2021 morphine SR (MS CONTIN) Take one Reorder 30 mg ER tablet tablet by mouth every 12 hours documented as of this encounter Additional Health Concerns Assessment Noted Time A fall risk assessment has been completed for the pat ient 04/14/2021 9:56 AM CDT PHQ-2 Depression Total Score: 2 12/04/2019 10:40 AM ASSISTANT STATISTICIAN documented as of this encounter
--- OUTSIDE RECORDS SUMMARY | 2021-06-09 15:41 | XMS REPORT | Clinical Summary ---
Author Author [facility] Address Unknown Phone Unavailable Care Team Providers Care Executive S[employer] Name Role Phone Sudhir Winston MD Unavailable Katelyn Thompson MD Unavailable [phone] Alo Ramirez MD Unavailable Self, Referral PCP Unavailable Katelyn Thompson MD Unavailable [phone] Source Comments Some departments are not documenting in the electronic medical record. If you d o not see the information that you expected, contact Release of Information in [facility] Information Management department at [phone] for further assistan ce in locating additional records.[facility] Allergies Comments Active Allergy Reactions Severity Noted Date Nausea and sore throat Ciprofloxacin NAUSEA ONLY, Low 12/04/2019 SEE COMMENTS Medications End Date Status Medication Sig Dispensed Refills Start Date Active aspirin EC (ASPIR-81) 81 Take 81 mg by 0 mg tablet mouth every 24 hours. Active prochlorperazine Take one 30 tablet 1 (COMPAZINE) 5 mg tablet tablet by 0 mouth every 6 hours as needed for Nausea. Active Calcium-Cholecalciferol Chew 1 tablet 0 (D3) (CALCIUM 500+D) 500 by mouth mg(1,250mg) -400 unit twice daily. chew Active clobetasoL (TEMOVATE) Please apply 60 g 3 0.05 % topical a small 1 creamIndications: Palmar amount to the plantar palms of erythrodysaesthesia due hands or to cytotoxic therapy soles of feet twice per day if you have soreness in spite of OTC lotion Active lisinopriL (ZESTRIL) 40 Take one 90 tablet 3 mg tablet tablet by 1 mouth daily. Active hydroCHLOROthiazide Take one 90 tablet 3 (HYDRODIURIL) 25 mg tablet by 1 tablet mouth every morning. Active cabozantinib (CABOMETYX) Take one 30 tablet 3 0 40 mg tabletIndications: tablet by 1 Malignant neoplasm of mouth daily. right kidney (HCC) Take on an empty stomach, at least 1 hour before or 2 hours after food. Active atorvastatin (LIPITOR) 10 Take one 90 tablet 3 mg tablet tablet by 1 mouth daily. Active sertraline (ZOLOFT) 50 mg Take one 30 tablet 3 tablet tablet by 1 mouth daily. Active omeprazole DR (PRILOSEC) Take one 90 capsule 1 0 40 mg capsule capsule by 1 mouth daily before breakfast. Active morphine SR (MS CONTIN) Take one 60 tablet 0 30 mg ER tablet tablet by 1 mouth every 12 hours Active HYDROcodone/acetaminophen Take two 120 tablet 0 (NORCO) 5/325 mg tablets by 1 tabletIndications: mouth every 4 Neoplasm related pain hours as needed for Pain May cause constipation; if causes constipation, can take Senna as a laxative Active ELIQUIS 5 mg tablet Take 5 mg by 0 mouth daily. 1 06/05/2021 Discontinued (Reorder) HYDROcodone/acetaminophen Take two 120 tablet 0 (NORCO) 5/325 mg tablets by 1 tabletIndications: mouth every 4 Neoplasm related pain hours as needed for Pain May cause constipation; if causes constipation, can take Senna as a laxative 06/05/2021 Discontinued (Reorder) morphine SR (MS CONTIN) Take one 60 tablet 0 30 mg ER tablet tablet by 1 mouth every 12 hours Active Problems Problem Noted Date Malignant neoplasm of right kidney 12/12/2019 Cancer Staging: Clinical stage from 12/02: Stage IV (cT1b, pM1) - Signed by Katelyn Thompson MD on 12/18/2019 Overview: Formatting of this note might be differ ent from the original. Prostate cancer 11/06/2019 Cancer Staging: Clinical: Unsigned Overview: Formatting of this note might be differ ent from the original. Encounters Care Team Description Date Type Specialty Katelyn Thompson MD 06/09/2021 Hospital Oncology Encounter Katelyn Thompson MD Arrived 06/09/2021 Office Visit Oncology Katelyn Thompson MD Malignant neoplasm of right kidney (HCC) (Primary Dx); Prostate cancer (HCC); Hypothyroidism due to medication 06/09/2021 Lab Only Oncology Maryellen Gates MA Encounter for screening laboratory testi ng for COVID-19 virus in asymptomatic patient; Prostate cancer (HCC); Malignant neoplasm of right kidney (HCC) 06/09/2021 Orders Only Oncology 06/09/2021 Travel Katelyn Thompson MD Neoplasm related pain 06/05/2021 Refill Oncology Katelyn Thompson MD Prostate cancer (HCC) 06/03/2021 Orders Only Oncology Katelyn Thompson MD Malignant neoplasm of right kidney (HCC) 06/02/2021 Refill Oncology Katelyn Thompson MD 05/29/2021 Documentation Oncology Katelyn Thompson MD Prostate cancer (HCC) (Primary Dx) 05/29/2021 Orders Only Oncology Maryellen Gates MA Malignant neoplasm of right kidney (HCC) ; Prostate cancer (HCC) 05/22/2021 Orders Only Oncology Kaitlynn Knight PA-C Malignant neoplasm of right kidney (HCC) ; Prostate cancer (HCC) 05/20/2021 Orders Only Oncology Katelyn Thompson MD Prostate cancer (HCC); Malignant neoplasm of right kidney (HCC) 05/20/2021 Orders Only Oncology Maryellen Gates MA Malignant neoplasm of right kidney (HCC) ; Prostate cancer (HCC) 05/14/2021 Orders Only Oncology Kaitlynn Knight PA-C Malignant neoplasm of right kidney (HCC) (Primary Dx); Prostate cancer (HCC); Hypothyroidism due to medication 05/13/2021 Office Visit Oncology Telehealth Kaitlynn Knight PA-C 05/13/2021 Documentation Oncology Latricia Ziegler PHARMD 05/13/2021 Clinical Oncology Support Telehealth Matthew Cool MD 05/09/2021 Orders Only Otolaryngology Katelyn Thompson MD 05/08/2021 Documentation Oncology Katelyn Thompson MD Prostate cancer (HCC) (Primary Dx); Malignant neoplasm of right kidney (HCC) 05/07/2021 Orders Only Oncology Katelyn Thompson MD 05/07/2021 Refill Oncology Amy Pro RN Navigation Follow Up 05/02/2021 Telephone Oncology Kaitlynn Knight PA-C 04/14/2021 Hospital Oncology Encounter Kaitlynn Knight PA-C Prostate cancer (HCC); Malignant neoplasm of right kidney (HCC) 04/14/2021 Office Visit Oncology Kaitlynn Knight PA-C Malignant neoplasm of right kidney (HCC) (Primary Dx); Prostate cancer (HCC) 04/14/2021 Lab Only Oncology 04/14/2021 Travel Katelyn Thompson MD Neoplasm related pain 04/02/2021 Orders Only Oncology Matthew Cool MD Multiple thyroid nodules (Primary Dx) 03/21/2021 Orders Only Otolaryngology Amy Pro RN Navigation Assessment 03/21/2021 Telephone Oncology Katelyn Thompson MD Multiple thyroid nodules (Primary Dx) 03/19/2021 Orders Only Oncology Katelyn Thompson MD 03/18/2021 Refill Oncology Katelyn Thompson MD 03/18/2021 Orders Only Oncology Katelyn Thompson MD Multiple thyroid nodules (Primary Dx) 03/18/2021 Orders Only Oncology Self, Referral Prostate cancer (HCC); Malignant neoplasm of right kidney (HCC); Hypothyroidism due to medication 03/17/2021 Lab Only Oncology Katelyn Thompson MD 03/17/2021 Hospital Radiology Encounter Katelyn Thompson MD Malignant neoplasm of right kidney (HCC) (Primary Dx); Prostate cancer (HCC); Hypothyroidism due to medication; Secondary malignant neoplasm of bone (HCC); Neoplasm of uncertain behavior of thyroid gland; Neoplasm related pain 03/17/2021 Office Visit Oncology 03/17/2021 Travel Katelyn Thompson MD Multiple thyroid nodules (Primary Dx) 03/11/2021 Orders Only Oncology from Last 3 Months Immunizations Name Administration Dates Next Due COVID-19 (MODERNA), mRNA 01/09/2021, 12/12/2020 vacc, 100 mcg/0.5 mL (PF) Flu Vaccine =>65 YO 10/07/2019 High-Dose (PF) Surgical History Surgery Date Site/Laterality Comments HX HEART CATHETERIZATION [place] GASTROESOPHAG REFLX gastroesophageal reflux rep air TEST W/INTRLUML IMPED ELTRD LUMBAR DISC SURGERY herniated disc on neck HX CORONARY STENT 10/18/2011 stent placed circum flex PLACEMENT Medical History Medical History Date Comments Hypertension Heart disease Family History Medical History Relation Name Comments Coronary Artery Disease Brother Heart Disease Brother Arthritis-rheumatoid Father Cancer Father Coronary Artery Disease Father Heart Disease Father High Cholesterol Father Hypertension Father Cancer-Ovarian Mother Heart Disease Paternal Grandmother Coronary Artery Disease Sister Heart Disease Sister Relation Name Status Comments Brother Father Mother Paternal Grandmother Sister Social History Date Tobacco Use Types Packs/Day Years Used Current Every Day Smoker Cigarettes 1.5 30 Smokeless Tobacco: Former Snuff Quit: 1985 User Tobacco Cessation: Ready to Quit: Yes Drinks/Week oz/Week Comments Alcohol Use 6 Cans of beer 6.0 Yes Sex Assigned at Date Recorded Not on file Date Recorded COVID-19 Exposure Response 06/09/2021 2:29 PM CDT In the last month, have you been in contact with No / Unsure someone who was confirmed or suspected to have Coronavirus / COVID-19? Last Filed Vital Signs Reading Time Taken Comments Vital Sign 110/70 06/09/2021 3:32 PM CDT Blood Pressure 110 06/09/2021 3:32 PM CDT Pulse 36.4 C (97.5 F) 06/09/2021 3:32 PM CDT Temperature 24 06/09/2021 3:32 PM CDT Respiratory Rate 94% 06/09/2021 3:32 PM CDT Oxygen Saturation - - Inhaled Oxygen Concentration 85.1 kg (187 lb 9.6 oz) 06/09/2021 3:32 PM CDT Weight 171.6 cm (5' 7.56") 06/09/2021 3:32 PM CDT Height 28.9 06/09/2021 3:32 PM CDT Body Mass Index Plan of Treatment Care Team Description Date Type Specialty Katelyn Thompson MD [address] [place], [place] [id number] 06/09/2021 Hospital Oncology Encounter Health Maintenance Due Date Last Done Comments MEDICARE ANNUAL WELLNESS 1955 VISIT PNEUMONIA (PPSV23) 1959 VACCINE (1 of 2 - PPSV23) DTAP/TDAP VACCINES (1 - 1971 Tdap) HEPATITIS C SCREENING 1971 PHYSICAL (COMPREHENSIVE) 1971 EXAM COLORECTAL CANCER 2003 SCREENING SHINGLES RECOMBINANT 2003 VACCINE (1 of 2) ABDOMINAL AORTIC ANEURYSM 2018 SCREENING INFLUENZA VACCINE 08/01/2021 10/07/2019 COVID-19 VACCINE Completed 01/09/2021, 12/12/2020 Procedures Comments Procedure Name Priority Date/Time Associated Diag nosis PHOSPHORUS Routine 06/09/2021 Prostate cancer (HCC) 2:40 PM CDT Malignant neoplasm of right kidney (HCC) MAGNESIUM Routine 06/09/2021 Prostate cancer (HCC) 2:40 PM CDT Malignant neoplasm of right kidney (HCC) COMPREHENSIVE METABOLIC Routine 06/09/2021 Malign ant neoplasm of PANEL 2:40 PM CDT right kidney (HCC) COVID-19 (SARS-COV-2) PCR Routine 06/05/2021 [place] for screening laboratory testing for COVID-19 virus in asymptomatic patient Prostate cancer (HCC) Malignant neoplasm of right kidney (HCC) US DOPPLER VENOUS LEFT Routine 06/02/2021 Prostat e cancer (HCC) COMPREHENSIVE METABOLIC Routine 05/20/2021 Malign ant neoplasm of PANEL right kidney (HCC) CBC AND DIFF Routine 05/20/2021 Prostate cancer (HCC) Malignant neoplasm of right kidney (HCC) CT CHEST W CONTRAST Routine 05/20/2021 Malignant neoplasm of right kidney (HCC) Prostate cancer (HCC) CT ABD/PELV W CONTRAST Routine 05/20/2021 Maligna nt neoplasm of right kidney (HCC) Prostate cancer (HCC) MRI HEAD WO/W CONTRAST Routine 05/20/2021 Maligna nt neoplasm of right kidney (HCC) Prostate cancer (HCC) CBC AND DIFF Routine 05/12/2021 Malignant neopl asm of right kidney (HCC) Prostate cancer (HCC) COMPREHENSIVE METABOLIC Routine 05/12/2021 Malign ant neoplasm of PANEL right kidney (HCC) Prostate cancer (HCC) HC TESTOSTERONE;TOTAL Routine 04/14/2021 Prostate cancer (HCC) 9:00 AM CDT Malignant neoplasm of right kidney (HCC) HC PROSTATIC SPECIF Routine 04/14/2021 Prostate c ancer (HCC) AG(PSA);TOT 9:00 AM CDT Malignant neoplasm of right kidney (HCC) HC 25-OH VITAMIN D Routine 04/14/2021 Malignant n eoplasm of 9:00 AM CDT right kidney (HCC) HC PHOSPHOROUS, SERUM Routine 04/14/2021 Malignan t neoplasm of 9:00 AM CDT right kidney (HCC) HC MAGNESIUM Routine 04/14/2021 Malignant neopl asm of 9:00 AM CDT right kidney (HCC) HC COMPREHENSIVE Routine 04/14/2021 Malignant asmita plasm of METABOLIC PANEL 9:00 AM CDT right kidney (HCC) HC TSH(THYROID Add on 03/17/2021 STIMULATING HORM) 4:49 PM CDT HC FREE T4(FREE Add on 03/17/2021 THYROXINE) 4:49 PM CDT HC COMPREHENSIVE Routine 03/17/2021 Prostate canc er (HCC) METABOLIC PANEL 4:49 PM CDT Malignant neoplasm of right kidney (HCC) HC CBC W/ AUTOMATED DIFF Routine 03/17/2021 Prost ate cancer (HCC) 4:49 PM CDT Malignant neoplasm of right kidney (HCC) US THYROID Routine 03/17/2021 Multiple thyroi d nodules 4:33 PM CDT from Last 3 Months Results * PHOSPHORUS (06/09/2021 2:40 PM CDT) Only the most recent of 2 results within the time period is included. Phosphorus 3.8 2.0 - 4.5 MG/DL [facility] Specimen Blood Performing Organization Address City/[facility] P lana Number [facility] [address] [place] [address] * MAGNESIUM (06/09/2021 2:40 PM CDT) Only the most recent of 2 results within the time period is included. Magnesium 1.8 1.6 - 2.6 mg/dL [facility] Specimen Blood Performing Organization Address [facility] P lana Number [facility] [address] [place] [address] * COMPREHENSIVE METABOLIC PANEL (06/09/2021 2:40 PM CDT) Only the most recent of 5 results within the time period is included. Sodium 135 (L) 137 - 147 MMOL/L [...] Non >60 >60 mL/min [facility] Comment: [place] The eGFR is not validated f or use in drug dosing adjustments. Continue to use estimated creatinine clearance per dosing reference text. Please contact the Clinical Pharmacist for questions. eGFR >60 >60 mL/min [facility] [place] Comment: The eGFR is not validated for use in drug dosing adjustments. Continue to use estimated creatinine clearance per dosing reference text. Please contact the Clinical Pharmacist for questions. Specimen Blood Performing Organization Address City/State/ZIP Code P lana Number [facility] [address] [place] [address] * COVID-19 (SARS-COV-2) PCR (06/05/2021) Pathologist [facility] COVID-19 [facility] (SARS-CoV-2) PCR COVID-19 [facility] (SARS-CoV-2) PCR Source Specimen Flocked Swab - Nasopharyngeal Swab Narrative Performed At This result has an attachment that is n ot available. Performing Organization Address City/State/ZIP Code P lana Number [facility] [address] [place] [address] * US DOPPLER VENOUS LEFT (06/02/2021) Specimen Narrative Performed At This result has an attachment that is n ot available. Performing Organization Address City/State/ZIP Code P lana Number [facility] * CT ABD/PELV W CONTRAST (05/20/2021) Narrative Performed At This result has an attachment that is n ot available. Performing Organization Address City/State/ZIP Code P lana Number [facility] * CT CHEST W CONTRAST (05/20/2021) Narrative Performed At This result has an attachment that is n ot available. Performing Organization Address [facility]/ZIP Code P lana Number [facility] * MRI HEAD WO/W CONTRAST (05/20/2021) Narrative Performed At This result has an attachment that is n ot available. Performing Organization Address City/State/ZIP Code P lana Number [facility] * CBC AND DIFF (05/20/2021) Only the most recent of 3 results within the time period is included. White Blood [facility] Cells RBC [facility] Hemoglobin [facility] Hematocrit [facility] MCV [facility] MCH [facility] MCHC [facility] Platelet Count [facility] MPV [facility] RDW [facility] Neutrophils [facility] Absolute [facility] Neutrophil Count Lymphocytes [facility] Absolute Lymph [facility] Count Monocytes [facility] Absolute [facility] Monocyte Count Eosinophil [facility] Absolute [facility] Eosinophil Count Basophils [facility] Absolute [facility] Basophil Count Atypical Lym [facility] Metamyelocyte [facility] Myelocyte [facility] Promyelocyte [facility] Blast [facility] RBC Morph [facility] WBC Morphology [facility] Specimen Blood - Blood Narrative Performed At This result has an attachment that is n ot available. Performing Organization Address City/State/ZIP Code P lana Number [facility] [address] [place] [address] * 25-OH VITAMIN D (D2 + D3) (04/14/2021 9:00 AM CDT) Vitamin 41.1 30 - 80 NG/ML [facility] D(25-OH)Total Specimen Blood Performing Organization Address City/[facility] Code P lana Number [facility] [address] [place] [address] * TESTOSTERONE,TOTAL (04/14/2021 9:00 AM CDT) Pathologist [facility] Testosterone,To <10 (L) 270 - 1070 NG/DL [facility] sharita Specimen Blood Performing Organization Address [facility] P lana Number [facility] [address] [place] [address] * PROSTATIC SPECIFIC ANTIGEN-PSA (04/14/2021 9:00 AM CDT) Pathologist [facility] Prostatic 0.50 <4.01 NG/ML [facility] Specific Comment: Antigen REFERENCE RANGES AGE PSA VALUE <50 <=1.5 50-54 <=2.0 55-59 <=3.0 60-69 <=4.0 70+ <=6.0 Specimen Blood Performing Organization Address City/[facility]/ZIP Code P lana Number [facility] [address] [place] [id number] * THYROID STIMULATING HORMONE-TSH (03/17/2021 4:49 PM CDT) TSH 0.69 0.35 - 5.00 MCU/ML [facility] Specimen Performing Organization Address City/[facility] Code P lana Number [facility] [address] [place] [id number] * FREE T4 (FREE THYROXINE) ONLY (03/17/2021 4:49 PM CDT) T4-Free 0.8 0.6 - 1.6 NG/DL [facility] Specimen Performing Organization Address City/State/ZIP Code P lana Number [facility] [address] [place] [address] * US THYROID (03/17/2021 4:33 PM CDT) Specimen Impressions Performed At Bilateral thyroid nodules with moderately suspicious features (TR4). Tissue [facility] sampling of the mid right thyroid nodul e in the inferior left thyroid nodule is recommended. Follow-up of additional no dules is recommended in one year pending pathology. Finalized by Kristyn Agarwal on 03/17/2021 4:56 PM. Dictated by Sofia Sanderson M.D. on 03/17/20 4:48 PM. Narrative Performed At Ultrasound of the Neck [facility] Clinical Indication:Male, 65 years; t hyroid nodules. Technique: Multiple grayscale sonograph ic images were obtained of the neck with additional Color Doppler acquisitions. Comparison: CT chest 08/16/2020. Findings: The isthmus is normal in thickness with out a discrete nodule. The right lobe of the thyroid measures 5.4 x 2.2 x 1.9 cm. The right lobe parenchyma is heterogeneous. Multiple t hyroid nodules are present. Reference nodules as follows: Nodule 1: Measures 1.8 x 0.8 x 1.5 cm i n the mid right thyroid lobe. Predominantly solid, isoechoic, ill-def ined margins, wider than tall, microcalcifications, internal vascular flow. TR4 Nodule 2: Measures 1.2 x 0.6 x 1.2 cm i n the inferior right thyroid lobe. Solid, isoechoic, ill-defined margins, wider t harper tall, peripheral calcifications. TR4 The left lobe of the thyroid measures 5 .3 x 2.2 x 1.9 cm. The left lobe parenchyma is heterogeneous. Multiple t hyroid nodules are present. Reference nodules as follows: Nodule 3: Measures 1.1 x 0.8 x 1.3 cm i n the mid left thyroid lobe. Predominantly solid, hypoechoic, wider than tall, ill-defined margins, no calcifications. TR4 Nodule 4: Measures 2.3 x 2.1 x 2.1 cm i n the inferior left thyroid lobe. Solid, heterogeneous but hypoechoic, wider gail n tall, ill-defined margins, no calcifications. TR4 Normal size bilateral cervical lymph no joes are noted without suspicious morphologic features. Procedure Note Interface, Radiant Results - 03/17/2021 4:59 PM CDT Ultrasound of the Neck Clinical Indication:Male, 65 years; thyroid nodules. Technique: Multiple grayscale sonographic images were obtained of the neck with additional Color Doppler acquisitions. Comparison: CT chest 08/16/2020. Findings: The isthmus is normal in thickness without a discrete nodule. The right lobe of the thyroid measures 5.4 x 2.2 x 1.9 cm. The right lobe parenchyma is heterogeneous. Multiple thyroid nodules are present. Reference nodules as follows: Nodule 1: Measures 1.8 x 0.8 x 1.5 cm in the mid right thyroid lobe. Predominantly solid, isoechoic, ill-defined margins, wider than tall, microcalcifications, internal vascular flow. TR4 Nodule 2: Measures 1.2 x 0.6 x 1.2 cm in the inferior right thyroid lobe. Solid, isoechoic, ill-defined margins, wider than tall, peripheral calcifications. TR4 The left lobe of the thyroid measures 5.3 x 2.2 x 1.9 cm. The left lobe parenchyma is heterogeneous. Multiple thyroid nodules are present. Reference nodules as follows: Nodule 3: Measures 1.1 x 0.8 x 1.3 cm in the mid left thyroid lobe. Predominantly solid, hypoechoic, wider than tall, ill-defined margins, no calcifications. TR4 Nodule 4: Measures 2.3 x 2.1 x 2.1 cm in the inferior left thyroid lobe. Solid, heterogeneous but hypoechoic, wider than tall, ill-defined margins, no calcifications. TR4 Normal size bilateral cervical lymph nodes are noted without suspicious morphologic features. IMPRESSION Bilateral thyroid nodules with moderately suspicious features (TR4). Tissue sampling of the mid right thyroid nodule in the inferior left thyroid nodule is recommended. Follow-up of additional nodules is recommended in one year pending pathology. Finalized by Sofia Sanderson M.D. on 03/17/2021 4:56 PM. Dictated by Sofia Sanderson M.D. on 03/17/2021 4:48 PM. 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
--- OUTSIDE RECORDS SUMMARY | 2021-06-09 15:41 | XMS REPORT | Encounter Summary ---
Author Author [facility] Organization [facility] Address Unknown Phone Unavailable Care Team Providers [employer] Driver Name Role Phone Sudhir Winston MD Unavailable Katelyn Thompson MD Unavailable [phone] Alo Ramirez MD Unavailable Self, Referral PCP Unavailable Katelyn Thompson MD Unavailable [phone] Reason for Visit * Reason Comments Follow Up Encounter Details Care Team Description Date Type Department Katelyn Thompson MD [address] [facility] [place], [place] [phone] Arrived 06/09/2021 Office Visit Oncology: [facility] [address] [place] [address] Social History Date Tobacco Use Types Packs/Day Years Used Current Every Day Smoker Cigarettes 1.5 30 Smokeless Tobacco: Former Snuff Quit: 1985 User Drinks/Week oz/Week Comments Alcohol Use 6 Cans of beer 6.0 Yes Sex Assigned at Date Recorded Not on file Date Recorded COVID-19 Exposure Response 06/09/2021 2:29 PM CDT In the last month, have you been in contact with No / Unsure someone who was confirmed or suspected to have Coronavirus / COVID-19? documented as of this encounter Last Filed Vital Signs Reading Time Taken [...] 06/09/2021 3:32 PM CDT Body Mass Index documented in this encounter Functional Status Date of Assessment [...] Description Date Type Specialty Katelyn Thompson MD [address] [place], [place] [phone] 06/09/2021 Hospital Oncology Encounter documented as of this encounter Visit Diagnoses Not on filedocumented in this encounter Historical Medications * This list may reflect changes made after this encounter. Start Date End Date Medication Sig Dispensed Refills 06/08/2021 ELIQUIS 5 mg tablet Take 5 mg by 0 mouth daily. 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
--- OUTSIDE RECORDS SUMMARY | 2021-06-09 15:41 | XMS REPORT | Encounter Summary ---
Author Author [facility] Organization [facility] Address Unknown Phone Unavailable Care Team Providers Care Fish Bait Processing Supervisor Name Role Phone Sudhir Winston MD Unavailable Katelyn Thompson MD Unavailable [phone] Alo Ramirez MD Unavailable Self, Referral PCP Unavailable Katelyn Thompson MD Unavailable [phone] Encounter Details Care Team Description Date Type Department Kaitlynn Knight PA-C [address] [facility] [place], [place] [phone] Malignant neoplasm of right kidney (HCC) ; Prostate cancer (HCC) 05/20/2021 Orders Only Oncology: [facility] [address] [place], [place] [phone] Social History Date Tobacco Use Types Packs/Day Years Used Current Every Day Smoker Cigarettes 1.5 30 Smokeless Tobacco: Former Snuff Quit: 1984 User Drinks/Week oz/Week Comments Alcohol Use 6 Cans of beer 6.0 Yes Sex Assigned at Date Recorded Not on file documented as of this encounter Functional Status [...] Description Date Type Specialty Katelyn Thompson MD [address] [place] [address] [phone] 06/09/2021 Hospital Oncology Encounter documented as of this encounter Procedures Comments Procedure Name Priority Date/Time Associated Diag nosis MRI HEAD WO/W CONTRAST Routine 05/20/2021 Maligna nt neoplasm of right kidney (HCC) Prostate cancer (HCC) documented in this encounter Results * MRI HEAD WO/W CONTRAST (05/20/2021) Narrative Performed At This result has an attachment that is n ot available. Performing Organization Address City/State/ZIP Code P lana Number [facility] documented in this encounter Visit Diagnoses Diagnosis Malignant neoplasm of right kidney (HCC ) Prostate cancer (HCC) Malignant neoplasm of prostate documented in this encounter Additional Health Concerns Assessment Noted Time A fall risk assessment has been completed for the pat ient 05/13/2021 2:34 PM CDT PHQ-2 Depression Total Score: 2 12/04/2019 10:40 AM AIR BAG STRIPPER documented as of this encounter
--- OUTSIDE RECORDS SUMMARY | 2021-06-09 15:41 | XMS REPORT | Encounter Summary ---
Author Author [facility] Organization [facility] Address Unknown Phone Unavailable Care Team Providers Care Facs Teacher Name Role Phone Sudhir Winston MD Unavailable Katelyn Thompson MD Unavailable [phone] Alo Ramirez MD Unavailable Self, Referral PCP Unavailable Katelyn Thompson MD Unavailable [phone] Reason for Referral * Radiology Services (Routine) Referred By Contact Referred To Contact Status Reason Specialty Diagnoses / Procedures Katelyn Thompson MD [address] [place] [address] New Request Diagnoses Prostate cancer (HCC) P rocedures US DOPPLER VENOUS LEFT Electronically signed by Katelyn Thompson MD at Encounter Details Care Team Description Date Type Department Katelyn Thompson MD [address] [place] [address] [phone] Prostate cancer (HCC) (Primary Dx) 05/29/2021 Orders Only Oncology: [address] [place] [address] Social History Date Tobacco Use Types Packs/Day [...] Description Date Type Specialty Katelyn Thompson MD [address] [place] [address] 06/09/2021 Hospital Oncology Encounter documented as of this encounter Results * US DOPPLER VENOUS LEFT (06/02/2021) Specimen Narrative Performed At This result has an attachment that is n ot available. Performing Organization Address City/State/ZIP Code P lana Number [facility] documented in this encounter Visit Diagnoses Diagnosis Prostate cancer (HCC) - Primary Malignant neoplasm of prostate documented in this encounter Additional Health Concerns Assessment Noted Time A fall risk assessment has been completed for the pat ient 05/13/2021 2:34 PM CDT PHQ-2 Depression Total Score: 2 12/04/2019 10:40 AM KEY FILER documented as of this encounter
--- OUTSIDE RECORDS SUMMARY | 2021-06-09 15:41 | XMS REPORT | Encounter Summary ---
Author Author [facility] Organization [facility] Address Unknown Phone Unavailable Care Team Providers Care Process Server Name Role Phone Sudhir Winston MD Unavailable Katelyn Thompson MD Unavailable [phone] Alo Ramirez MD Unavailable Self, Referral PCP Unavailable Katelyn Thompson MD Unavailable [phone] Encounter Details Care Team Description Date Type Department Katelyn Thompson MD [address] [facility] [place] [address] [phone] 05/29/2021 Documentation Oncology: [facility] [address] [place] [address] Social History Date Tobacco Use Types Packs/Day [...] as of this encounter Progress Notes * Candie Eaton RN - 05/29/2021 3:16 PM CDT Faxed orders for US left LE to [facility] at . documented in this encounter Plan of Treatment Care Team Description Date Type Specialty Katelyn Thompson MD [address] [facility] [place], [place] [id number] 06/09/2021 Hospital Oncology Encounter documented as of this encounter Visit Diagnoses Not on filedocumented in this encounter Additional Health Concerns Assessment Noted Time A fall risk assessment has been completed for the pat ient 05/13/2021 2:34 PM CDT PHQ-2 Depression Total Score: 2 12/04/2019 10:40 AM TYPESETTER PERFORATOR OPERATOR documented as of this encounter
--- OUTSIDE RECORDS SUMMARY | 2021-06-09 15:41 | XMS REPORT | Encounter Summary ---
Author Author [facility] Organization [facility] Address Unknown Phone Unavailable Care Team Providers Care Overlock Sleeve Setter Name Role Phone Sudhir Winston MD Unavailable Katelyn Thompson MD Unavailable [phone] Alo Ramirez MD Unavailable Self, Referral PCP Unavailable Katelyn Thompson MD Unavailable [phone] Reason for Visit * Reason Comments Heme/Onc Care Encounter Details Care Team Description Date Type Department Latricia Ziegler, CLOVER 05/13/2021 Clinical [facility] Telehealth [address] [place] [phone] Social History Date Tobacco Use Types Packs/Day [...] as of this encounter Progress Notes * Latricia Ziegler, PHARMD - 05/13/2021 3:16 PM CDT Oral Chemotherapy Reassessment Note Appropriateness of Therapy Rock Myranda Milton 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 Cycle 1 start date was in 12/2020. The regimen of cabozantinib 40 mg by kale th daily is appropriate. He has noted an array of symptoms in the past month and cabozantinib will be held for the next few days to determine if cabozantinib is contributing (see Adverse Effects Assessment). No renal or hepatic dose adjustment is required at this time. To be determined i f Mr. Milton requires a dose reduction for his current adverse effects. Treatment will continue until progression or unacceptable toxicity. CBC w diff Lab Results Component Value Date/Time WBC 4.6 03/17/2021 04:49 PM RBC 5.08 03/17/2021 04:49 PM HGB 16.3 03/17/2021 04:49 PM HCT 47.6 03/17/2021 04:49 PM MCV 93.6 03/17/2021 04:49 PM MCH 32.1 03/17/2021 04:49 PM MCHC 34.3 03/17/2021 04:49 PM RDW 14.9 03/17/2021 04:49 PM PLTCT 184 03/17/2021 04:49 PM MPV 7.7 03/17/2021 04:49 PM Lab Results Component Value Date/Time NEUT 60 03/17/2021 04:49 PM ANC 2.80 03/17/2021 04:49 PM LYMA 25 03/17/2021 04:49 PM ALC 1.10 03/17/2021 04:49 PM CONNIE 9 03/17/2021 04:49 PM AMC 0.40 03/17/2021 04:49 PM EOSA 5 03/17/2021 04:49 PM AEC 0.20 03/17/2021 04:49 PM BASA 1 03/17/2021 04:49 PM ABC 0.00 03/17/2021 04:49 PM Comprehensive Metabolic Profile Lab Results Component Value Date/Time NA 135 (L) 04/14/2021 09:00 AM K 3.9 04/14/2021 09:00 AM CL 99 04/14/2021 09:00 AM CO2 31 (H) 04/14/2021 09:00 AM GAP 5 04/14/2021 09:00 AM BUN 11 04/14/2021 09:00 AM CR 1.09 04/14/2021 09:00 AM GLU 107 (H) 04/14/2021 09:00 AM Lab Results Component Value Date/Time CA 9.2 04/14/2021 09:00 AM PO4 3.4 04/14/2021 09:00 AM ALBUMIN 4.1 04/14/2021 09:00 AM TOTPROT 6.7 04/14/2021 09:00 AM ALKPHOS 73 04/14/2021 09:00 AM AST 28 04/14/2021 09:00 AM ALT 28 04/14/2021 09:00 AM TOTBILI 0.4 04/14/2021 09:00 AM GFR >60 04/14/2021 09:00 AM GFRAA >60 04/14/2021 09:00 AM Serum creatinine: 1.09 mg/dL 04/14/21 0900 Estimated creatinine clearance: 68.9 mL/min Response to Therapy The electronic medical record for Rock Myranda Milton has been reviewed. No evidence of progression that would necessitate a change of therapy has been identified. Patient will continue therapy as he is achieving therapeutic benefit. Adverse Effects Assessment Mr. Milton is having the following adverse effects: fatigue, dizziness, headac he, sinus infection, confusion, nausea. These symptoms appeared approximately 1 month ago around the time of his first zoledronic acid injection. He was working up until the injection and has noted a significant decline in his performance s tatus since administration. Of note, he has also been diagnosed with an ear infe ction and is currently on antibiotics (amoxicillin). At this time it is difficul t to determine the exact cause of his constellation of symptoms (cabozantinib, z oledronic acid acute phase reaction, sinus infection, brain metastasis). Plan is to hold his cabozantinib for the next few days to see if any symptoms improve - will call the healthcare on Wednesday to provide an update. An MRI-H has been ordered since the patient has reported headache, dizziness, and nausea. However, none of the adverse effects were severe enough to interfere with adherence. Adherence Assessment The patient's ability to self-administer medication was assessed. Mr. Milton reports missing 0 doses over the past 3-4 week(s) not related to to xicity. Mr. Milton was re-educated on importance of adherence. Medication Reconciliation A medication history and reconciliation was performed (including prescription me dications, supplements, over the counter medications, and herbal products). The medication list was updated and the patients current medication list is inclu ded below. Home Medications Medication Sig aspirin EC (ASPIR-81) 81 mg tablet Take 81 mg by mouth every 24 hours. atorvastatin (LIPITOR) 10 mg tablet Take one tablet by mouth daily. cabozantinib (CABOMETYX) 40 mg tablet Take one tablet by mouth daily. Take on an empty stomach, at least 1 hour before or 2 hours after food. Calcium-Cholecalciferol (D3) (CALCIUM 500+D) 500 mg(1,250mg) -400 unit chew Chew 1 tablet by mouth twice daily. clobetasoL (TEMOVATE) 0.05 % topical cream Please apply a small amount to the pa lms of hands or soles of feet twice per day if you have soreness in spite of OTC lotion hydroCHLOROthiazide (HYDRODIURIL) 25 mg tablet Take one tablet by mouth every mo rning. HYDROcodone/acetaminophen (NORCO) 5/325 mg tablet Take two tablets by mouth ever y 4 hours as needed for Pain May cause constipation; if causes constipation, ca n take Senna as a laxative lisinopriL (ZESTRIL) 40 mg tablet Take one tablet by mouth daily. morphine SR (MS CONTIN) 30 mg ER tablet Take one tablet by mouth every [address] (PRILOSEC) 40 mg capsule Take one capsule by mouth daily before br eakfast. prochlorperazine (COMPAZINE) 5 mg tablet Take one tablet by mouth every 6 hours as needed for Nausea. sertraline (ZOLOFT) 50 mg tablet Take one tablet by mouth daily. Drug-drug and drug-food interactions between the patients specialty medicatio n and their medication list were assessed and reviewed with the patient. No significant drug-drug interactions were identified. Mr. Milton was instructed to speak with his health care provider and/or the or al chemotherapy pharmacist before starting any new drug, including prescription or over the counter, natural / herbal products, or vitamins. Allergies Allergen Reactions Ciprofloxacin NAUSEA ONLY and SEE COMMENTS Nausea and sore throat Vaccination Status Assessment Immunization History Administered Date(s) Administered COVID-19 (MODERNA), mRNA vacc, 100 mcg/0.5 mL (PF) 12/12/2020, 01/09/2021 Flu Vaccine =>65 YO High-Dose (PF) 10/07/2019 Appropriate recommended vaccinations were reviewed and discussed with the can parikh. The patient will be reminded about the importance of receiving an annual infl uenza vaccine as indicated. Reproductive Risk Assessment Mr. Milton is a 65 y.o. male As patient is a male, education was provided at education regarding adequate con traception for female partners of reproductive potential and contacting his phys ician immediately should his partner become . Risk Evaluation and Mitigation Strategy (REMS) Assessment No REMS is required for this medication. What to do with any unused or medications Appropriate safe handling and disposal procedures were reviewed with the patient . Mr. Milton was instructed to return any unused or oral chemotherapy medication to a designated disposal bin at one of the [facility] s or to utilize a community drug take back program. Instructed not to flush sivakumar n the toilet or to crush the medication. Follow-up Plan Mr. Milton was encouraged to call the oral chemotherapy pharmacist at [phone] with questions. This medication is considered high risk per our inter nal oral chemotherapy risk categorization and the patient will be contacted for education, toxicity check at 2 weeks, and reassessment every 3 months, if applic able (high risk monitoring). Re-assessment has been completed. Next reassessment planned for 3 month(s). Latricia Ziegler PHARMD Oncology Clinical Pharmacist 05/13/2021 documented in this encounter Plan of Treatment Care Team Description Date Type Specialty Katelyn Thompson MD [address] [place] [address] [phone] 06/09/2021 Hospital Oncology Encounter documented as of this encounter Visit Diagnoses Not on filedocumented in this encounter Additional Health Concerns Assessment Noted Time A fall risk assessment has been completed for the pat ient 05/13/2021 2:34 PM CDT PHQ-2 Depression Total Score: 2 12/04/2019 10:40 AM TIME STUDY CLERK documented as of this encounter
--- OUTSIDE RECORDS SUMMARY | 2021-06-09 15:41 | XMS REPORT | Encounter Summary ---
Author Author [facility] Organization [facility] Address Unknown Phone Unavailable Care Team Providers Care Product Mgr Name Role Phone Sudhir Winston MD Unavailable Katelyn Thompson MD Unavailable [phone] Alo Ramirez MD Unavailable Self, Referral PCP Unavailable Katelyn Thompson MD Unavailable [phone] Encounter Details Care Team Description Date Type Department Maryellen Gates MA Malignant neoplasm of right kidney (HCC) ; Prostate cancer (HCC) 05/14/2021 Orders Only Oncology: [facility] [place] [address] [facility] [place] [address] Social History Date Tobacco Use Types Packs/Day [...] Description Date Type Specialty Katelyn Thompson MD [address] [facility] [place] [address] 06/09/2021 Hospital Oncology Encounter documented as of this encounter Procedures Comments Procedure Name Priority Date/Time Associated Diag nosis CBC AND DIFF Routine 05/12/2021 Malignant neopl asm of right kidney (HCC) Prostate cancer (HCC) COMPREHENSIVE METABOLIC Routine 05/12/2021 Malign ant neoplasm of PANEL right kidney (HCC) Prostate cancer (HCC) documented in this encounter Results * CBC AND DIFF (05/12/2021) White Blood [facility] Cells RBC [facility] [...] LAB Eosinophil Count Basophils [facility] Absolute [facility] Basophil Count Atypical Lym [facility] Metamyelocyte [facility] Myelocyte [facility] Promyelocyte [facility] Blast [facility] RBC Morph [facility] WBC Morphology [facility] Specimen Blood - Blood Narrative Performed At This result has an attachment that is n ot available. Performing Organization Address City/State/ZIP Code P lana Number [facility] [address] [place] [address] * COMPREHENSIVE METABOLIC PANEL (05/12/2021) Sodium [facility] Potassium [facility] Chloride [facility] CO2 [facility] Blood Urea [facility] Nitrogen Creatinine [facility] Glucose [facility] Calcium [facility] Total Protein [facility] Total Bilirubin [facility] Albumin [facility] Alk Phosphatase [facility] AST (SGOT) [facility] ALT (SGPT) [facility] eGFR Non [facility] eGFR [facility] [place] Specimen Blood - Blood Narrative Performed At This result has an attachment that is n ot available. Performing Organization Address City/State/ZIP Code P lana Number [facility] [address] [place] [phone] documented in this encounter Visit Diagnoses Diagnosis Malignant neoplasm of right kidney (HCC ) Prostate cancer (HCC) Malignant neoplasm of prostate documented in this encounter Additional Health Concerns Assessment Noted Time A fall risk assessment has been completed for the pat ient 05/13/2021 2:34 PM CDT PHQ-2 Depression Total Score: 2 12/04/2019 10:40 AM BUYING AGENT documented as of this encounter
--- OUTSIDE RECORDS SUMMARY | 2021-06-09 15:41 | XMS REPORT | Encounter Summary ---
Author Author [facility] Organization [facility] Address Unknown Phone Unavailable Care Team Providers Care Medical Massage Therapist Name Role Phone Sudhir Winston MD Unavailable Katelyn Thompson MD Unavailable [phone] Alo Ramirez MD Unavailable Self, Referral PCP Unavailable Katelyn Thompson MD Unavailable [phone] Reason for Visit * Reason Comments Medication Refill Encounter Details Care Team Description Date Type Department Katelyn Thompson MD [address] [facility] [place] [address] [phone] Malignant neoplasm of right kidney (HCC) 06/02/2021 Refill Oncology: [facility] [address] [place], [place] [phone] Social History Date Tobacco Use Types Packs/Day [...] Description Date Type Specialty Katelyn Thompson MD [address] [place], [place] [id number] 06/09/2021 Hospital Oncology Encounter documented as of this encounter Visit Diagnoses Diagnosis Malignant neoplasm of right kidney (HCC ) documented in this encounter Additional Health Concerns Assessment Noted Time A fall risk assessment has been completed for the pat ient 05/13/2021 2:34 PM CDT PHQ-2 Depression Total Score: 2 12/04/2019 10:40 AM LONG DISTANCE BILLING OPERATOR documented as of this encounter
--- OUTSIDE RECORDS SUMMARY | 2021-06-09 15:41 | XMS REPORT | Encounter Summary ---
Author Author [facility] Organization [facility] Address Unknown Phone Unavailable Care Team Providers Care Hazmat Technician Name Role Phone Sudhir Winston MD Unavailable Katelyn Thompson MD Unavailable [phone] Alo Ramirez MD Unavailable Self, Referral PCP Unavailable Katelyn Thompson MD Unavailable [phone] Reason for Visit * Reason Onset Date Comments Navigation Follow Up 05/02/2021 Encounter Details Care Team Description Date Type Department Are, STEPHANY Reyes Navigation Follow Up 05/02/2021 Telephone Oncology: [facility] [address] [address] Social History Date Tobacco Use Types Packs/Day [...] impairment: No documented as of this encounter Miscellaneous Notes * Telephone Encounter - Amy Pro RN - 05/02/2021 1:14 PM CDT Pt has thyroid nodule with recommendation for thyroid biopsy. He has been unabl e to successfully travel to [facility] for this procedure. Upon pt's request, a requ est has been made to his local PCP to set up the biopsy closer to home. Records faxed to Dr Jarrett Bueno at [facility] [phone] and discussed with doctor assistant alin knapp his office. P [phone]. Requested clouding US to [facility]. Pt is aware of these efforts. documented in this encounter Plan of Treatment Care Team Description Date Type Specialty Katelyn Thompson MD [address] [facility] [place], [place] [phone] 06/09/2021 Hospital Oncology Encounter documented as of this encounter Visit Diagnoses Not on filedocumented in this encounter Additional Health Concerns Assessment Noted Time A fall risk assessment has been completed for the pat ient 04/14/2021 9:56 AM CDT PHQ-2 Depression Total Score: 2 12/04/2019 10:40 AM PROGRAM SCHEDULE CLERK documented as of this encounter
--- OUTSIDE RECORDS SUMMARY | 2021-06-09 15:41 | XMS REPORT | Encounter Summary ---
Author Author [facility] Organization [facility] Address Unknown Phone Unavailable Care Team Providers Care Laboratory Geneticist Name Role Phone Sudhir Winston MD Unavailable Katelyn Thompson MD Unavailable [phone] Alo Ramirez MD Unavailable Self, Referral PCP Unavailable Katelyn Thompson MD Unavailable [phone] Reason for Referral * Radiology Services (Routine) Referred By Contact Referred To Contact Status Reason Specialty Diagnoses / Procedures Kaitlynn Knight PA-C [address] [place] [address] New Request Diagnoses Malignant neoplasm of right kidney (HCC) Prostate cancer (HCC) P rocedures CT ABD/PELV W CONTRAST Electronically signed by Kaitlynn Knight PA-C at * Radiology Services (Routine) Referred By Contact Referred To Contact Status Reason Specialty Diagnoses / Procedures Kaitlynn Knight PA-C [address] [place] [address] New Request Diagnoses Malignant neoplasm of right kidney (HCC) Prostate cancer (HCC) P rocedures CT CHEST W CONTRAST Electronically signed by Kaitlynn Knight PA-C at * Radiology Services (Routine) Referred By Contact Referred To Contact Status Reason Specialty Diagnoses / Procedures Kaitlynn Knight PA-C [address] [place] [address] New Request Diagnoses Malignant neoplasm of right kidney (HCC) Prostate cancer (HCC) P rocedures MRI HEAD WO/W CONTRAST Electronically signed by Kaitlynn Knight PA-C at Reason for Visit * Reason Comments Follow Up Encounter Details Care Team Description Date Type Department Kaitlynn Knight PA-C [address] [place] [address] [phone] Malignant neoplasm of right kidney (HCC) (Primary Dx); Prostate cancer (HCC); Hypothyroidism due to medication 05/13/2021 Office Visit Oncology: [facility], [address] [place] [address] Social History Date Tobacco Use Types Packs/Day [...] as of this encounter Progress Notes * Kaitlynn Knight PA-C - 05/13/2021 2:30 PM CDT Name: Rock Myranda Milton : 1955 AGE: 65 y.o. DATE OF SERVICE: 05/13/2021 Obtained patient's verbal consent to treat them and their agreement to [facility] ball policy and NPP via this telehealth visit during the Coronavirus Public [facility] Subjective: Reason for Visit: Follow Up Rock Myranda Milton is a 65 y.o. male. Cancer Staging Malignant neoplasm of right kidney (HCC) Staging form: Kidney, AJCC 8th Edition - Clinical stage from 12/12/2019: Stage IV (cT1b, pM1) - Signed by Mary esquivel, Katelyn Herrera MD on 12/18/2019 Prostate cancer (HCC) Staging form: Prostate, AJCC 8th Edition - Clinical: No stage assigned - Unsigned Onc Timeline Prostate cancer (HCC) 11/06/2019 Initial Diagnosis Prostate cancer (HCC) 11/06/2019 Biopsy TRUS biopsy, revealing 4 cores (bilateral) positive for grade group 5 prostate adenocarcinoma, comprising 5-60% of core tissue 12/28/2019 Supportive Care OP SUPPORT LEUPROLIDE DEPOT (EVERY 3 MONTHS) Plan Provider: Katelyn Thompson MD Treatment goal: Control Malignant neoplasm of right kidney (HCC) 12/12/2019 Initial Diagnosis Malignant neoplasm of right kidney (HCC) 12/12/2019 Biopsy Bone biopsy -- consistent with metastatic clear cell renal cell carcinoma 12/12/2019 Cancer Staged Staging form: Kidney, AJCC 8th Edition - Clinical stage from 12/12/2019: Stage IV (cT1b, pM1) 12/28/2019 - 12/24/2020 Chemotherapy OP NIVOLUMAB + IPILIMUMAB FOLLOWED BY NIVOLUMAB (EVERY 4 WEEKS) Plan Provider: Katelyn Thompson MD Treatment goal: Palliative 09/18/2020 - 10/07/2020 Radiation Palliative RT to R iliac bone metastasis over 13 fractions 12/20/2020 - Chemotherapy OP CABOZANTINIB (TABLETS) Plan Provider: Katelyn Thompson MD Treatment goal: Palliative 04/14/2021 - Chemotherapy OP SUPPORT ZOLEDRONIC ACID (MONTHLY) Plan Provider: Katelyn Thompson MD Treatment goal: Supportive Care Plan History of Present Illness Mr. Rock Milton is a pleasant 65-year-old gentleman who presents today for brittaney oing evaluation of his metastatic renal cell carcinoma for which he is currently on cabozantinib at 40 mg daily. He also initiated treatment with zoledronic a johanna at the time of his appointment 1 month ago. The patient relates that shortly after his zoledronic acid infusion he noticed i ncreased fatigue. The evening following his infusion, he was also up in his kit diaz in the middle night and was stumbling around "almost sleepwalking." He relates that the next morning his brother noticed that he was "out of it" and it took 2-3 days for his mentation to clear. The patient relates that he has not been able to work for the past month because he has been so fatigued. He states that he can only do 15-20 minutes activity before he is ready to "collapse." He states that he is frequently dizzy and has an occasional "light headache." He relates occasional nausea but has not vomited. He denies any visual changes. He did recently see his primary care provider who diagnosed him with an ear infe ction. He was subsequently started on a course of amoxicillin and Flonase. He relates that his sore throat has improved since he started the antibiotics and h jessica is now able to drink more water. He still has 4 days remaining of the antibio tics. The patient denies any sores on the palms of his hands or soles of his feet. He does note some "rough spots" on the tops of his hands and his elbows. He is us ing lotion as needed. The patient relates that he has not been able to work for the past month. He st ates that he does not want to take zoledronic acid again and inquires about the use of Xgeva. He is scheduled for a thyroid biopsy tomorrow in [place]. Review of Systems Constitutional: Positive for activity change, appetite change and fatigue. Negat lisandro for chills, fever and unexpected weight change. HENT: Positive for ear pain and sore throat. Negative for dental problem, hearin g loss, mouth sores, nosebleeds, rhinorrhea, sinus pain, sneezing, tinnitus, tro uble swallowing and voice change. Eyes: Negative for visual disturbance. Respiratory: Negative for cough, chest tightness, shortness of breath and wheezi ng. Cardiovascular: Negative for chest pain, palpitations and leg swelling. Gastrointestinal: Positive for constipation and diarrhea. Negative for abdominal pain, blood in stool, nausea and vomiting. Genitourinary: Negative for decreased urine volume, difficulty urinating, dysuri a, flank pain, frequency, hematuria and urgency. Musculoskeletal: Positive for arthralgias and back pain. Negative for gait probl em and myalgias. Skin: Negative for rash and wound. Neurological: Positive for dizziness, weakness, light-headedness and headaches. Negative for syncope and numbness. Psychiatric/Behavioral: Negative for confusion, dysphoric mood and sleep disturb ance. The patient is not nervous/anxious. Objective: aspirin EC (ASPIR-81) 81 mg tablet Take 81 mg by mouth every 24 hours. atorvastatin (LIPITOR) 10 mg tablet Take one tablet by mouth daily. cabozantinib (CABOMETYX) 40 mg tablet Take one tablet by mouth daily. Take o n an empty stomach, at least 1 hour before or 2 hours after food. Calcium-Cholecalciferol (D3) (CALCIUM 500+D) 500 mg(1,250mg) -400 unit chew Chew 1 tablet by mouth twice daily. clobetasoL (TEMOVATE) 0.05 % topical cream Please apply a small amount to th e palms of hands or soles of feet twice per day if you have soreness in spite of OTC lotion hydroCHLOROthiazide (HYDRODIURIL) 25 mg tablet Take one tablet by mouth ever y morning. HYDROcodone/acetaminophen (NORCO) 5/325 mg tablet Take two tablets by mouth every 4 hours as needed for Pain May cause constipation; if causes constipation , can take Senna as a laxative lisinopriL (ZESTRIL) 40 mg tablet Take one tablet by mouth daily. morphine SR (MS CONTIN) 30 mg ER tablet Take one tablet by mouth every [address] (PRILOSEC) 40 mg capsule Take one capsule by mouth daily befor e breakfast. prochlorperazine (COMPAZINE) 5 mg tablet Take one tablet by mouth every 6 ho urs as needed for Nausea. sertraline (ZOLOFT) 50 mg tablet Take one tablet by mouth daily. Vitals: 05/13/21 1434 PainSc: Zero There is no height or weight on file to calculate BMI. Pain Score: Zero Fatigue Scale: 6 Pain Addressed: Patient to call office if pain not relieved or worsened and Cur rent regimen working to control pain. Patient Evaluated for a Clinical Trial: Patient not eligible for a treatment tri al (including not needing treatment, needs palliative care, in remission). Eastern Cooperative Oncology Group performance status is 1, Restricted in physic ally strenuous activity but ambulatory and able to carry out work of a light or sedentary nature, e.g., light house work, office work. Physical Exam Constitutional: General: He is not in acute distress. Appearance: Normal appearance. He is not diaphoretic. HENT: Head: Normocephalic and atraumatic. Eyes: Conjunctiva/sclera: Conjunctivae normal. Pulmonary: Effort: Pulmonary effort is normal. Neurological: Mental Status: He is alert and oriented to person, place, and time. Psychiatric: Mood and Affect: Mood normal. Behavior: Behavior normal. Thought Content: Thought content normal. Judgment: Judgment normal. Outside labs from [facility] from 05/12/2021 we re reviewed and are as noted in the EMR. It should be noted his WBC was 4.3, he moglobin 14.8, hematocrit 44, platelet count 197, sodium 139, potassium 4.3, BUN 12, creatinine 0.84, glucose 84, calcium 9.2, phosphorus 3.3, magnesium 2.2, AST 22, ALTs 24, alkaline phosphatase 82 Assessment and Plan: Mr. Rock Milton is a 65-year-old gentleman with a past medical history signifi cant for CAD, hypertension and hyperlipidemia who presents today for ongoing tenisha luation of his prostate cancer as well as his metastatic renal cell carcinoma. 1. Metastatic renal cell carcinoma. -Patient presents today for a lab and symptom check while on treatment with cabo zantinib at 40 mg daily. -Reviewed his outside CBC and CMP which are appropriate for continuing with delmy tment. -However given his severe fatigue, he will hold his cabozantinib for 4 days and update us later this week regarding his symptoms. -Plan for him to return to clinic in 1 month with repeat labs as well as updated CT scans of the chest/abdomen/pelvis which will be done locally. 2. Grade group 5 prostate cancer -Continue leuprolide therapy indefinitely. -He will be due for his next leuprolide injection in July 2021 3. Osseous metastases. -Initiated zoledronic acid 1 month ago. Subsequently he has experienced increas ed fatigue, nausea, headaches, dizziness. Patient was seen in conjunction with our pharmacist Latricia Ziegler, Pharm.D. -We discussed that these are uncommon side effects from zoledronic acid and the side effectstypically are more short-lived. However we will discontinue his zol edronic acid and consider initiating denosumab pending resolution of his current symptoms. 4. Cancer-related pain. -Continue morphine SR 30 mg every 12 as well as hydrocodone/APAP 10/325 every 4 hours as needed 5. Palmar plantar erythrodysesthesia. -Currently managed with the use of urea as well as clobetasol cream twice daily 6. GERD. -Continue omeprazole to 40 mg daily and use Tums as needed 7. Thyroid nodules. -Has biopsy of thyroid tomorrow - locally 8. Ear infection. -Continue with course of amoxicillin and flonase as prescribed by PCP 9. Increased fatigue/headaches/dizziness. -Check TSH with free T4 upon return. -Hold cabozatinib and update us later this week regarding fatigue. -MRI brain at earliest convenience locally. Kaitlynn Knight PA-C Supervising physician: Katelyn Thompson MD documented in this encounter Plan of Treatment Care Team Description Date Type Specialty Katelyn Thompson MD [address] [facility] [place], [place] [phone] 06/09/2021 Hospital Oncology Encounter Order Schedule Name Type Priority Associated Diag noses Expected: 06/13/2021 (Approximate), Expi res: 05/13/2022 TSH WITH FREE T4 REFLEX Lab Routine Hypoth yroidism due to medication documented as of this encounter Results * CT ABD/PELV W CONTRAST (05/20/2021) Narrative Performed At This result has an attachment that is n ot available. Performing Organization Address City/State/ZIP Code P lana Number [facility] * CT CHEST W CONTRAST (05/20/2021) Narrative Performed At This result has an attachment that is n ot available. Performing Organization Address City/State/ZIP Code P lana Number [facility] * MRI HEAD WO/W CONTRAST (05/20/2021) Narrative Performed At This result has an attachment that is n ot available. Performing Organization Address City/State/ZIP Code P lana Number [facility] * COMPREHENSIVE METABOLIC PANEL (05/12/2021) Sodium [facility] Potassium [facility] Chloride [facility] CO2 [facility] Blood Urea [facility] Nitrogen Creatinine [facility] Glucose [facility] Calcium [facility] Total Protein [facility] Total Bilirubin [facility] Albumin [facility] Alk Phosphatase [facility] AST (SGOT) [facility] ALT (SGPT) [facility] eGFR Non [facility] eGFR [facility] Central African Anion Gap [facility] Specimen Blood - Blood Narrative Performed At This result has an attachment that is n ot available. Performing Organization Address City/State/ZIP Code P lana Number [facility] [address] [place] [address] * CBC AND DIFF (05/12/2021) White Blood [...] City/State/ZIP Code P lana Number [facility] [address] [place] [address] documented in this encounter Visit Diagnoses Diagnosis Malignant neoplasm of right kidney (HCC ) - Primary Prostate cancer (HCC) Malignant neoplasm of prostate Hypothyroidism due to medication documented in this encounter Additional Health Concerns Assessment Noted Time A fall risk assessment has been completed for the pat ient 05/13/2021 2:34 PM CDT PHQ-2 Depression Total Score: 2 12/04/2019 10:40 AM FOOD SERVICE KITCHEN SUPERVISOR documented as of this encounter
--- OUTSIDE RECORDS SUMMARY | 2021-06-09 15:41 | XMS REPORT | Encounter Summary ---
Author Author [facility] Organization [facility] Address Unknown Phone Unavailable Care Team Providers Care Director Regulatory Affairs Name Role Phone Sudhir Winston MD Unavailable Katelyn Thompson MD Unavailable [phone] Alo Ramirez MD Unavailable Self, Referral PCP Unavailable Katelyn Thompson MD Unavailable [phone] Encounter Details Care Team Description Date Type Department Katelyn Thompson MD [address] [facility] [place], [place] [phone] Prostate cancer (HCC); Malignant neoplasm of right kidney (HCC) 05/20/2021 Orders Only Oncology: [facility] [address] [place], [place] [phone] Social History Date Tobacco Use Types Packs/Day [...] Description Date Type Specialty Katelyn Thompson MD [address] [facility] [place] [address] [phone] 06/09/2021 Hospital Oncology Encounter documented as of this encounter Procedures Comments Procedure Name Priority Date/Time Associated Diag nosis CBC AND DIFF Routine 05/20/2021 Prostate cancer (HCC) Malignant neoplasm of right kidney (HCC) COMPREHENSIVE METABOLIC Routine 05/20/2021 Malign ant neoplasm of PANEL right kidney (HCC) documented in this encounter Results * COMPREHENSIVE METABOLIC PANEL (05/20/2021) Pathologist [facility] Sodium [facility] Potassium [facility] Chloride [facility] CO2 [facility] Blood Urea [facility] Nitrogen Creatinine [facility] Glucose [facility] Calcium [facility] Total Protein [facility] Total Bilirubin [facility] Albumin [facility] Alk Phosphatase [facility] AST (SGOT) [facility] ALT (SGPT) [facility] eGFR Non [facility] eGFR [facility] Gambian Anion Gap [facility] Specimen Blood - Blood Narrative Performed At This result has an attachment that is n ot available. Performing Organization Address City/State/ZIP Code P lana Number [facility] [address] [place] [address] * CBC AND DIFF (05/20/2021) White Blood [facility] Cells RBC [facility] [...] City/State/ZIP Code P lana Number [facility] [address] [place] [address] documented in this encounter Visit Diagnoses Diagnosis Prostate cancer (HCC) Malignant neoplasm of prostate Malignant neoplasm of right kidney (HCC ) documented in this encounter Additional Health Concerns Assessment Noted Time A fall risk assessment has been completed for the pat ient 05/13/2021 2:34 PM CDT PHQ-2 Depression Total Score: 2 12/04/2019 10:40 AM TOOTH CUTTER SPUR documented as of this encounter
--- OUTSIDE RECORDS SUMMARY | 2021-06-09 15:41 | XMS REPORT | Encounter Summary ---
Author Author [facility] Organization [facility] Address Unknown Phone Unavailable Care Team Providers Care Manager Pricing Name Role Phone Sudhir Winston MD Unavailable Katelyn Thompson MD Unavailable [phone] Alo Ramirez MD Unavailable Self, Referral PCP Unavailable Katelyn Thompson MD Unavailable [phone] Encounter Details Care Team Description Date Type Department Katelyn Thompson MD [address] [facility] [place], [place] [phone] Prostate cancer (HCC) (Primary Dx); Malignant neoplasm of right kidney (HCC) 05/07/2021 Orders Only Oncology: [address] [place], [place] [phone] Social History Date Tobacco Use Types Packs/Day [...] Description Date Type Specialty Katelyn Thompson MD [address] [facility] [address] [phone] 06/09/2021 Hospital Oncology Encounter documented as of this encounter Results * MAGNESIUM (06/09/2021 2:40 PM CDT) Magnesium 1.8 1.6 - 2.6 mg/dL [facility] Specimen Blood Performing Organization Address City/[facility]/ZIP Code P lana Number [facility] [address] [place] [address] * PHOSPHORUS (06/09/2021 2:40 PM CDT) Phosphorus 3.8 2.0 - 4.5 MG/DL [facility] Specimen Blood Performing Organization Address City/[facility] P lana Number [facility] [address] [place] [address] * CBC AND DIFF (05/20/2021) White Blood [...] is n ot available. Performing Organization Address City/[facility]/ZIP Code P lana Number [facility] [address] [place] [address] documented in this encounter Visit Diagnoses Diagnosis Prostate cancer (HCC) - Primary Malignant neoplasm of prostate Malignant neoplasm of right kidney (HCC ) documented in this encounter Additional Health Concerns Assessment Noted Time A fall risk assessment has been completed for the pat ient 04/14/2021 9:56 AM CDT PHQ-2 Depression Total Score: 2 12/04/2019 10:40 AM MATHEMATICS DEPARTMENT CHAIR documented as of this encounter
--- OUTSIDE RECORDS SUMMARY | 2021-06-09 15:41 | XMS REPORT | Encounter Summary ---
Author Author [facility] Organization [facility] Address Unknown Phone Unavailable Care Team Providers Care Hand Mold Maker Name Role Phone Sudhir Winston MD Unavailable Katelyn Thompson MD Unavailable [phone] Alo Ramirez MD Unavailable Self, Referral PCP Unavailable Katelyn Thompson MD Unavailable [phone] Encounter Details Care Team Description Date Type Department Katelyn Thompson MD [address] [facility] [place], [place] [phone] Prostate cancer (HCC) 06/03/2021 Orders Only Oncology: [facility] [address] [place], [place] [phone] Social History Date Tobacco Use Types Packs/Day [...] Description Date Type Specialty Katelyn Thompson MD [address] [place], [place] [phone] 06/09/2021 Hospital Oncology Encounter documented as of this encounter Procedures Comments Procedure Name Priority Date/Time Associated Diag nosis US DOPPLER VENOUS LEFT Routine 06/02/2021 Prostat e cancer (HCC) documented in this encounter Results * US DOPPLER VENOUS [...] Depression Total Score: 2 12/04/2019 10:40 AM ELECTROGALVANIZING MACHINE OPERATOR documented as of this encounter
--- OUTSIDE RECORDS SUMMARY | 2021-06-09 15:41 | XMS REPORT | Encounter Summary ---
Author Author [facility] Organization [facility] Address Unknown Phone Unavailable Care Team Providers Care Analyst Business Analysis Name Role Phone Sudhir Winston MD Unavailable Katelyn Thompson MD Unavailable [phone] Alo Ramirez MD Unavailable Self, Referral PCP Unavailable Katelyn Thompson MD Unavailable [phone] Encounter Details Care Team Description Date Type Department Matthew Cool MD [address] Ortho[facility] [address] [place], [place] [phone] 05/09/2021 Orders Only Otolaryngology: [facility] [address] [place] [address] Social History Date Tobacco Use Types Packs/Day [...] Care Team Description Date Type Specialty Katelyn Thomposn MD [address] [place], [place] [phone] 06/09/2021 Hospital Oncology Encounter documented as of this encounter Visit Diagnoses Not on filedocumented in this encounter Additional Health Concerns Assessment Noted Time A fall risk assessment has been completed for the pat ient 04/14/2021 9:56 AM CDT PHQ-2 Depression Total Score: 2 12/04/2019 10:40 AM PLANT ENGINEERING SUPERVISOR documented as of this encounter
--- OUTSIDE RECORDS SUMMARY | 2021-06-09 15:41 | XMS REPORT | Encounter Summary ---
Author Author [facility] Organization [facility] Address Unknown Phone Unavailable Care Team Providers Care Adjunct Instructor Of Women'S Studies Name Role Phone Sudhir Winston MD Unavailable Katelyn Thompson MD Unavailable [phone] Alo Ramirez MD Unavailable Self, Referral PCP Unavailable Katelyn Thompson MD Unavailable [phone] Encounter Details Care Team Description Date Type Department Maryellen Gates MA Malignant neoplasm of right kidney (HCC) ; Prostate cancer (HCC) 05/22/2021 Orders Only [facility] [address] [place] [address]. [place] [address] Social History Date Tobacco Use Types Packs/Day [...] Description Date Type Specialty Katelyn Thompson MD [address] [facility] [place] [address] [phone] 06/09/2021 Hospital Oncology Encounter documented as of this encounter Procedures Comments Procedure Name Priority Date/Time Associated Diag nosis CT ABD/PELV W CONTRAST Routine 05/20/2021 Maligna nt neoplasm of right kidney (HCC) Prostate cancer (HCC) CT CHEST W CONTRAST Routine 05/20/2021 Malignant neoplasm of right kidney (HCC) Prostate cancer (HCC) documented in this encounter Results * CT CHEST W CONTRAST (05/20/2021) Narrative [...] Depression Total Score: 2 12/04/2019 10:40 AM SURGERY AIDE documented as of this encounter
--- OUTSIDE RECORDS SUMMARY | 2021-06-09 15:41 | XMS REPORT | Encounter Summary ---
Author Author [facility] Organization [facility] Address Unknown Phone Unavailable Care Team Providers Care Kennel Helper Name Role Phone Sudhir Winston MD Unavailable Katelyn Thompson MD Unavailable [phone] Alo Ramirez MD Unavailable Self, Referral PCP Unavailable Katelyn Thompson MD Unavailable [phone] Encounter Details Care Team Description Date Type Department Maryellen Gates MA Encounter for screening laboratory testi ng for COVID-19 virus in asymptomatic patient; Prostate cancer (HCC); Malignant neoplasm of right kidney (HCC) 06/09/2021 Orders Only Oncology: [facility] [address] [place] [address] Social History Date Tobacco Use Types Packs/Day [...] Description Date Type Specialty Katelyn Thompson MD [address] [place] [address] 06/09/2021 Hospital Oncology Encounter documented as of this encounter Procedures Comments Procedure Name Priority Date/Time Associated Diag nosis COVID-19 (SARS-COV-2) PCR Routine 06/05/2021 Enco unter for screening laboratory testing for COVID-19 virus in asymptomatic patient Prostate cancer (HCC) Malignant neoplasm of right kidney (HCC) documented in this encounter Results * COVID-19 (SARS-COV-2) PCR (06/05/2021) COVID-19 [facility] (SARS-CoV-2) PCR COVID-19 [facility] (SARS-CoV-2) PCR Source Specimen Flocked Swab - Nasopharyngeal Swab Narrative Performed At This result has an attachment that is n ot available. Performing Organization Address City/State/ZIP Code P lana Number MAIN LAB [address] [place] [address] documented in this encounter Visit Diagnoses Diagnosis Encounter for screening laboratory test ing for COVID-19 virus in asymptomatic patient Prostate cancer (HCC) Malignant neoplasm of prostate Malignant neoplasm of right kidney (HCC ) documented in this encounter Additional Health Concerns Assessment Noted Time PHQ-2 Depression Total Score: 2 12/04/2019 10:40 AM HELPER TEACHER documented as of this encounter
--- OUTSIDE RECORDS SUMMARY | 2021-06-09 15:41 | XMS REPORT | Encounter Summary ---
Author Author [facility] Organization [facility] Address Unknown Phone Unavailable Care Team Providers Care Inventory Control Supervisor Name Role Phone Sudhir Winston MD Unavailable Katelyn Thompson MD Unavailable [phone] Alo Ramirez MD Unavailable Self, Referral PCP Unavailable Katelyn Thompson MD Unavailable [phone] Encounter Details Care Team Description Date Type Department Kaitlynn Knight PA-C [address] [facility] [place] [address] [phone] 05/13/2021 Documentation Oncology: [facility] [address] [place] [address] Social History Date Tobacco Use Types Packs/Day [...] of this encounter Progress Notes * Candie Eaton, RN - 05/13/2021 3:23 PM CDT Faxed orders for CT CAP, MRI head and labs to [facility] at . 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
--- OUTSIDE RECORDS SUMMARY | 2021-06-09 15:42 | XMS REPORT | Encounter Summary ---
Author Author [facility] Organization [facility] Address Unknown Phone Unavailable Care Team Providers Care Aircraft Powertrain Repairer Name Role Phone Sudhir Winston MD Unavailable Katelyn Thompson MD Unavailable [phone] Alo Ramirez MD Unavailable Self, Referral PCP Unavailable Katelyn Thompson MD Unavailable [phone] Encounter Details Care Team Description Date Type Department 04/14/2021 Travel Social History Date Tobacco Use Types [...] Description Date Type Specialty Katelyn Thompson MD [address] [place] [address] [phone] 06/09/2021 Hospital Oncology Encounter documented as of this encounter Visit Diagnoses Not on filedocumented in this encounter Additional Health Concerns Assessment Noted Time A fall risk assessment has been completed for the pat ient 04/14/2021 9:56 AM CDT PHQ-2 Depression Total Score: 2 12/04/2019 10:40 AM 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
--- OUTSIDE RECORDS SUMMARY | 2021-06-09 15:45 | XMS REPORT | Encounter Summary ---
Author Author [facility] Organization [facility] Address Unknown Phone Unavailable Care Team Providers Care Dna Sequencing Associate Name Role Phone Sudhir Winston MD Unavailable Katelyn Thompson MD Unavailable [phone] Alo Ramirez MD Unavailable Self, Referral PCP Unavailable Katelyn Thompson MD Unavailable [phone] Reason for Visit * Reason Comments Follow Up Encounter Details Care Team Description Date Type Department Kaitlynn Knight PA-C [address] [facility] [place], [place] [phone] Prostate cancer (HCC); Malignant neoplasm of right kidney (HCC) 04/14/2021 Office Visit Oncology: [address] [place], [place] [phone] Social History Date Tobacco Use Types Packs/Day [...] Signs Reading Time Taken Comments Vital Sign 121/78 04/14/2021 9:56 AM CDT Blood Pressure 62 04/14/2021 9:56 AM CDT Pulse 36.4 C (97.5 F) 04/14/2021 9:56 AM CDT Temperature 16 04/14/2021 9:56 AM CDT Respiratory Rate 98% 04/14/2021 9:56 AM CDT Oxygen Saturation - - Inhaled Oxygen Concentration 84.2 kg (185 lb 9.6 oz) 04/14/2021 9:56 AM CDT Weight 171.6 cm (5' 7.56") 04/14/2021 9:56 AM CDT Height 28.59 04/14/2021 9:56 AM CDT Body Mass Index documented in this [...] Date End Date Prescription Sig Dispensed Refills 04/14/[address] (PRILOSEC) Take one 90 capsule 1 40 mg capsule capsule by mouth daily before breakfast. documented in this encounter Progress Notes * Kaitlynn Knight PA-C - 04/14/2021 10:00 AM CDT Name: Rock Myranda Milton : 1955 AGE: 65 y.o. DATE OF SERVICE: 04/14/2021 Subjective: Reason for Visit: Follow Up Rock [...] cabozantinib at 40 mg daily. He also continues on treatment with leuprolide for his high risk prostate cancer. The patient relates that he is generally doing well and continues to work on a r egular basis. He does note some "soreness" in his hands and relates that he has difficulty opening bottles. He denies any sores on the palms of his hands or s oles of his feet and is using urea cream twice daily. He denies any nausea or vomiting but does have some heartburn despite using omep razole 20 mg daily. He is using Tums 2-3 times a day as needed for breakthrough heartburn symptoms. His bowels have been fairly regular recently. He relates that food tastes bland but feels that his weight is relatively stable. 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 He is scheduled to see Dr. Cool in the near future with regards to his thyroid n odules Review of Systems Constitutional: Negative for activity change, appetite change, chills, fatigue, fever and unexpected weight change. HENT: Positive for drooling, rhinorrhea and voice change. Negative for dental pr oblem, hearing loss, mouth sores, nosebleeds, sinus pain, sneezing, sore throat, tinnitus and trouble swallowing. Eyes: Positive for itching and visual disturbance. Respiratory: Negative for cough, chest tightness, shortness of breath and wheezi ng. Cardiovascular: Negative for chest pain, palpitations and leg swelling. Gastrointestinal: Positive for constipation and diarrhea. Negative for abdominal pain, blood in stool, nausea and vomiting. Genitourinary: Positive for urgency. Negative for decreased urine volume, diffic ulty urinating, dysuria, flank pain, frequency and hematuria. Musculoskeletal: Positive for back pain. Negative for arthralgias, gait problem and myalgias. Skin: Positive for pallor. Negative for rash and wound. Neurological: Positive for dizziness. Negative for syncope, weakness, light-head edness and headaches. Psychiatric/Behavioral: Positive for agitation. Negative for confusion, dysphori c mood and sleep disturbance. The patient is not nervous/anxious. Objective: aspirin [...] tablet by mouth every 12 ho urs prochlorperazine (COMPAZINE) 5 mg tablet Take one tablet by mouth every 6 ho urs as needed for Nausea. sertraline (ZOLOFT) 50 mg tablet Take one tablet by mouth daily. Vitals: 04/14/21 0956 BP: 121/78 BP Source: Arm, Left Upper Patient Position: Sitting Pulse: 62 Resp: 16 Temp: 36.4 C (97.5 F) TempSrc: Oral SpO2: 98% Weight: 84.2 kg (185 lb 9.6 oz) Height: 171.6 cm (67.56") PainSc: Zero Body mass index is 28.59 kg/m. Pain Score: Zero Fatigue Scale: 0-None Pain Addressed: Patient to call office if [...] acute distress. Appearance: Normal appearance. He is well-developed. He is not toxic-appearin g or diaphoretic. HENT: Head: Normocephalic and atraumatic. Mouth/Throat: Comments: Mask covering nose and mouth Eyes: General: No scleral icterus. Extraocular Movements: Extraocular movements intact. Pupils: Pupils are equal, round, and reactive to light. Cardiovascular: Rate and Rhythm: Normal rate and regular rhythm. Heart sounds: Normal heart sounds. No murmur. Pulmonary: Effort: Pulmonary effort is normal. No respiratory distress. Breath sounds: Normal breath sounds. No wheezing, rhonchi or rales. Abdominal: General: Bowel sounds are normal. There is no distension. Palpations: Abdomen is soft. There is no mass. Tenderness: There is no abdominal tenderness. Musculoskeletal: General: No swelling. Normal range of motion. Cervical back: Normal range of motion and neck supple. Lymphadenopathy: Cervical: No cervical adenopathy. Skin: General: Skin is warm and dry. Findings: No rash. Neurological: General: No focal deficit present. Mental Status: He is alert and oriented to person, place, and time. Mental st atus is at baseline. Psychiatric: Mood and Affect: Mood normal. Behavior: Behavior normal. Thought Content: Thought content normal. Judgment: Judgment normal. Lab Results Component Value Date/Time NA 135 (L) 04/14/2021 09:00 AM K 3.9 04/14/2021 09:00 AM BUN 11 04/14/2021 09:00 AM CR 1.09 04/14/2021 09:00 AM GLU 107 (H) 04/14/2021 09:00 AM CA 9.2 04/14/2021 09:00 AM AST 28 04/14/2021 09:00 AM ALT 28 04/14/2021 09:00 AM ALKPHOS 73 04/14/2021 09:00 AM Lab Results Component Value Date PSA 0.53 01/20/2021 PSA 0.63 10/14/2020 PSA 0.72 07/22/2020 PSA 0.95 04/02/2020 PSA 1.52 02/12/2020 Assessment and Plan: Mr. Rock Milton is [...] cabo zantinib at 40 mg daily. -Reviewed CMP which is stable and appropriate for continuing with cabozantinib d aily. -Initiate zoledronic acid today. -Return to clinic in 4 weeks with repeat labs for symptom and blood pressure diogo ck. Repeat imaging every 3 months. 2. Grade group 5 prostate cancer. -PSA is stable suggesting ongoing cancer control. -Continue ADT indefinitely. Proceed with next leuprolide injection today. 3. Osseous metastatic disease. -Initiate monthly zoledronic acid today. -Discussed risks of hypocalcemia as well as ONJ and discussed the importance of contacting us prior to any invasive dental work. 4. Cancer related pain. -Continue morphine SR 30 mg every 12 as well as hydrocodone/APAP 10/325 every 4 hours as needed 5. Palmar plantar erythrodysesthesia. -Currently managed with the use of urea as well as clobetasol cream twice daily 6. GERD. -Increase omeprazole to 40 mg daily and use Tums as needed 7. Thyroid nodules. -Has upcoming consultation with ENT and IR biopsy. Kaitlynn Knight PA-C Supervising physician: Katleyn Thompson MD documented in this encounter Plan of Treatment Care Team Description Date Type Specialty Katelyn Thompson MD [address] [place], [place] [phone] 06/09/2021 Hospital Oncology Encounter documented as of this encounter Visit Diagnoses Diagnosis Prostate cancer (HCC) Malignant neoplasm of prostate Malignant neoplasm of right kidney (HCC ) documented in this encounter Additional Health Concerns Assessment Noted Time A fall risk assessment has been completed for the pat ient 04/14/2021 9:56 AM CDT PHQ-2 Depression Total Score: 2 12/04/2019 10:40 AM 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
--- OUTSIDE RECORDS SUMMARY | 2021-06-09 15:45 | XMS REPORT | Encounter Summary ---
Author Author [facility] Organization [facility] Address Unknown Phone Unavailable Care Team Providers Care Ingredient Mixer Name Role Phone Sudhir Winston MD Unavailable Katelyn Thompson MD Unavailable [phone] Alo Ramirez MD Unavailable Self, Referral PCP Unavailable Katelyn Thompson MD Unavailable [phone] Reason for Visit * Reason Comments Treatment Zometa * Treatment (Routine) Referred By Contact Referred To Contact Status Reason Specialty Diagnoses / Procedures Katelyn Thompson MD [address] [place] [address] [facility] [address] 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 [place] [address] Social History Date Tobacco Use Types Packs/Day [...] impairment: No documented as of this encounter Medications at Time of Discharge Start Date End Date Medication Sig Dispensed Refills aspirin EC (ASPIR-81) 81 Take 81 mg by 0 mg tablet mouth every 24 hours. 03/18/2021 atorvastatin (LIPITOR) 10 Take one 90 tablet 3 mg tablet tablet by mouth daily. 02/11/2021 cabozantinib (CABOMETYX) Take one 30 tablet 3 40 mg tabletIndications: tablet by Malignant neoplasm of mouth daily. right kidney (HCC) Take on an empty stomach, at least 1 hour before or 2 hours after food. Calcium-Cholecalciferol Chew 1 tablet 0 (D3) (CALCIUM 500+D) 500 by mouth mg(1,250mg) -400 unit twice daily. chew 01/20/2021 clobetasoL (TEMOVATE) Please apply 60 g 3 0.05 % topical a small creamIndications: Palmar amount to the plantar palms of erythrodysaesthesia due hands or to cytotoxic therapy soles of feet twice per day if you have soreness in spite of OTC lotion 01/20/2021 hydroCHLOROthiazide Take one 90 tablet 3 (HYDRODIURIL) 25 mg tablet by tablet mouth every morning. 01/20/2021 lisinopriL (ZESTRIL) 40 Take one 90 tablet 3 mg tablet tablet by mouth daily. 04/14/[address] (PRILOSEC) Take one 90 capsule 1 40 mg capsule capsule by mouth daily before breakfast. 12/04/2019 prochlorperazine Take one 30 tablet 1 (COMPAZINE) 5 mg tablet tablet by mouth every 6 hours as needed for Nausea. 03/18/2021 sertraline (ZOLOFT) 50 mg Take one 30 tablet 3 tablet tablet by mouth daily. 04/02/2021 06/05/2021 HYDROcodone/acetaminophen Take two 120 tablet 0 (NORCO) 5/325 mg tablets by tabletIndications: mouth every 4 Neoplasm related pain hours as needed for Pain May cause constipation; if causes constipation, can take Senna as a laxative 04/02/2021 05/07/2021 morphine SR (MS CONTIN) Take one 60 tablet 0 30 mg ER tablet tablet by mouth every 12 hours documented as of this encounter Discharge Disposition Code Departure Means Destination Disposition Home Home or Self Care documented in this encounter Progress Notes * Cary Diggs RN - 04/14/2021 12:26 PM CDT Pt here for zometa and lupron. Pt seen in exam by CARINA Chris, no new qu estions or concerns at this time. Pt tolerated zometa infusion and lupron injec tion without incident. Pt denies need for AVS, left ambulatory at 1224. documented in this encounter Miscellaneous Notes * Addendum Note - Alanna Locke - 04/14/2021 12:15 PM CDT Encounter addended by: Alanna Locke on: 04/15/2021 1:21 PM Actions taken: Charge Capture section accepted documented in this encounter Plan of Treatment Care Team Description Date Type Specialty [facility] MD [address] [place] [address] [phone] 06/09/2021 Hospital Oncology Encounter documented as of this encounter Visit Diagnoses Diagnosis Prostate cancer (HCC) - Primary Malignant neoplasm of prostate Malignant neoplasm of right kidney (HCC ) documented in this encounter Administered Medications Action Date Dose Rate Site Medication Order MAR Action 04/14/2021 12:21 PM CDT 22.5 mg Gluteal, Right leuprolide(+) 3 month (LUPRON DEPOT) Given injection 22.5 mg 22.5 mg, Intramuscular, ONCE, 1 dose, Wed04/14/21 at 1123, For Intramuscular use ONLY. NOTE: This is a HIGH ALERT Medication., 04/14/2021 11:58 AM CDT 4 mg zoledronic acid (ZOMETA) IVPB 4 mg Given - New 4 mg, Intravenous, 100 mL, Administer Bag over 15 Minutes, ONCE, 1 dose, Wed04/14/21 at 1124 documented in this encounter Orders First Ordered Date Nursing Count Last Ordered Date IMPLEMENT ALTEPLASE CENTRAL VENOUS 1 ACCESS DEVICE DECLOTTING PROTOCOL IMPLEMENT BISPHOSPHONATE RENAL DOSING 1 04/14/2021 PROTOCOL IMPLEMENT CHEMOTHERAPY EXTRAVASATION 1 0 04/14/2021 MANAGEMENT PROTOCOL IMPLEMENT GENERAL IV LINE FLUSH PROTOCOL 1 04/14/2021 IMPLEMENT MEDICATION REACTION 1 04/14/20 ANAPHYLAXIS, AND HYPERSENSITIVITY KARTHIKEYAN C documented in this encounter Additional Health Concerns Assessment Noted Time A fall risk assessment has been completed for the pat ient 04/14/2021 9:56 AM CDT PHQ-2 Depression Total Score: 2 12/04/2019 10:40 AM 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
--- OUTSIDE RECORDS SUMMARY | 2021-06-09 15:45 | XMS REPORT | Encounter Summary ---
Author Author [facility] Organization [facility] Address Unknown Phone Unavailable Care Team Providers Care Button Spindler Name Role Phone Sudhir Winston MD Unavailable Katelyn Thompson MD Unavailable [phone] Alo Ramirez MD Unavailable Self, Referral PCP Unavailable Katelyn Thompson MD Unavailable [phone] Encounter Details Care Team Description Date Type Department Kaitlynn Knight PA-C [address] [facility] [place], [place] [phone] Malignant neoplasm of right kidney (HCC) (Primary Dx); Prostate cancer (HCC) 04/14/2021 Lab Only Oncology: [address] [place], [place] [phone] Social History Date Tobacco Use Types Packs/Day [...] Description Date Type Specialty Katelyn Thompson MD [address] [place] [address] 06/09/2021 Hospital Oncology Encounter documented as of this encounter Procedures Comments Procedure Name Priority Date/Time Associated Diag nosis HC 25-OH VITAMIN D Routine 04/14/2021 Malignant n eoplasm of 9:00 AM CDT right kidney (HCC) HC TESTOSTERONE;TOTAL Routine 04/14/2021 Prostate cancer (HCC) 9:00 AM CDT Malignant neoplasm of right kidney (HCC) HC PROSTATIC SPECIF Routine 04/14/2021 Prostate c ancer (HCC) AG(PSA);TOT 9:00 AM CDT Malignant neoplasm of right kidney (HCC) HC PHOSPHOROUS, SERUM Routine 04/14/2021 Malignan t neoplasm of 9:00 AM CDT right kidney (HCC) HC MAGNESIUM Routine 04/14/2021 Malignant neopl asm of 9:00 AM CDT right kidney (HCC) HC COMPREHENSIVE Routine 04/14/2021 Malignant asmita plasm of METABOLIC PANEL 9:00 AM CDT right kidney (HCC) documented in this encounter Results * TESTOSTERONE,TOTAL (04/14/2021 9:00 AM CDT) Testosterone,To <10 (L) 270 - 1070 NG/DL [facility] sharita Specimen Blood Performing Organization Address City/State/ZIP Code P lana Number [facility] [address] [place] [address] * PROSTATIC SPECIFIC ANTIGEN-PSA (04/14/2021 9:00 AM CDT) Prostatic 0.50 <4.01 NG/ML [facility] Specific Comment: Antigen REFERENCE RANGES AGE PSA VALUE <50 <=1.5 50-54 <=2.0 55-59 <=3.0 60-69 <=4.0 70+ <=6.0 Specimen Blood Performing Organization Address [facility] P lana Number MAIN LAB [address] [place] [address] * 25-OH VITAMIN D (D2 + D3) (04/14/2021 9:00 AM CDT) Pathologist [facility] Vitamin 41.1 30 - 80 NG/ML [facility] D(25-OH)Total Specimen Blood Performing Organization Address [facility] P lana Number MAIN LAB [address] [place] [address] * PHOSPHORUS (04/14/2021 9:00 AM CDT) [facility] Phosphorus 3.4 2.0 - 4.5 MG/DL [facility] Specimen Blood Performing Organization Address [facility] P lana Number [facility] [address] [place] [address] * MAGNESIUM (04/14/2021 9:00 AM CDT) [facility] Magnesium 1.8 1.6 - 2.6 mg/dL [facility] Specimen Blood Performing Organization Address [facility] P lana Number [facility] [address] [place] [address] * COMPREHENSIVE METABOLIC PANEL (04/14/2021 9:00 AM CDT) Pathologist [facility] Sodium 135 (L) 137 - 147 MMOL/L [facility] Potassium 3.9 3.5 - 5.1 MMOL/L [facility] Chloride 99 98 - 110 MMOL/L [facility] Glucose 107 (H) 70 - 100 MG/DL [facility] Blood Urea 11 7 - 25 MG/DL [facility] Nitrogen Creatinine 1.09 0.4 - 1.24 MG/DL [facility] Calcium 9.2 8.5 - 10.6 MG/DL [facility] Total Protein 6.7 6.0 - 8.0 G/DL [facility] Total Bilirubin 0.4 0.3 - 1.2 MG/DL [facility] Albumin 4.1 3.5 - 5.0 G/DL [facility] Alk Phosphatase 73 25 - 110 U/L [facility] AST (SGOT) 28 7 - 40 U/L [facility] CO2 31 (H) 21 - 30 MMOL/L [facility] ALT (SGPT) 28 7 - 56 U/L [facility] Anion Gap 5 3 - 12 [facility] eGFR Non >60 >60 mL/min [facility] Comment: [place] The eGFR is not validated f or use in drug dosing adjustments. Continue to use estimated creatinine clearance per dosing reference text. Please contact the Clinical Pharmacist for questions. eGFR >60 >60 mL/min [facility] [place] Comment: The eGFR is not validated for use in drug dosing adjustments. Continue to use estimated creatinine clearance per dosing reference text. Please contact the Clinical Pharmacist for questions. 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
== END 2021-06-08 18:37 ==
LOC: EDUNIT# 14:19 → ER 14:22
DX: C64.9 Malignant neoplasm of unspecified kidney, except renal pelvis (principal); I26.99 Other pulmonary embolism without acute cor pulmonale; I10 Essential (primary) hypertension; E78.00 Pure hypercholesterolemia, unspecified; I25.10 Atherosclerotic heart disease of native coronary artery without angina pectoris; F17.210 Nicotine dependence, cigarettes, uncomplicated; Z20.822 Contact with and (suspected) exposure to COVID-19; Z79.82 Long term (current) use of aspirin; Z79.899 Other long term (current) drug therapy; Z79.01 Long term (current) use of anticoagulants
CPT/HCPCS: 36415; 71045; 71275; 80053; 82805; 83605; 84145; 84484; 85025; 85379; 85610; 85730; 87040; 87636; 93005

== ENCOUNTER → 2021-08-15 | Outpatient (CLI) | payer MEDICARE ==
[~2021-08-15] MED LIST changes: +APIX5TAB PO; +CATHETER FLUSH 10 ML SYR IV PRN; +HOLD METFORMIN - RECEIVED CONTRAST 20 ML VIAL IV SCH; +IOHEXOL 350 MG/ML 100 ML (OMNIPAQUE 350) VIAL IV ONE; +NS 100 ML (IVPB) BAG IV ONE
[2021-08-15 10:40] LABS: CREATININE SERUM 0.89 MG/DL (0.60-1.30)
--- NOTE | 2021-08-15 12:17 | Diagnostic Imaging Report ---
PROCEDURE: CT chest, abdomen, and pelvis with contrast. TECHNIQUE: Multiple contiguous axial images were obtained through the chest, abdomen, and pelvis after the administration of intravenous contrast. Auto Exposure Controls were utilized during the CT exam to meet ALARA standards for radiation dose reduction. INDICATION: Renal cancer and prostate cancer with metastases. COMPARISON is made with prior CT from 06/08/2021 and 05/20/2021. CT CHEST: No axillary lymphadenopathy is identified. No mediastinal or hilar lymphadenopathy is detected. There is no pericardial or pleural fluid. The study was not protocoled for peak opacification of the pulmonary arterial system, therefore assessment of known emboli on prior exam is difficult although there appears to be minimal residual filling defects in the right main pulmonary artery at the right hilum. In general however the clot burden appears to be significantly reduced. The patchy groundglass infiltrates in the left upper lobe have significantly improved. In addition, patchy groundglass opacities in the right upper lobe appear improved. No new parenchymal abnormality is identified. Expansile lytic and destructive lesion of the medial aspect of the right clavicle is again noted. Expansile lesion of the left 4th rib is again noted. CT ABDOMEN PELVIS: There is mild generalized low density throughout the liver suggestive of hepatic steatosis. No discrete liver mass is identified. The gallbladder is unremarkable. There is no biliary ductal dilatation. The pancreas and spleen are unremarkable. No adrenal mass is identified. Left kidney is unremarkable. The complex mixed solid and cystic mass involving the upper pole of the right kidney is again noted. This extends exophytically off the right kidney and it measures slightly smaller on today's study at approximately 4.4 x 4.5 cm compared with 4.8 x 4.5 cm when measured by similar technique on prior study. No central, retroperitoneal or mesenteric lymphadenopathy is seen. Aorta is nonaneurysmal. Bowel loops are of normal caliber. No definite inguinal or iliac lymphadenopathy is seen. There is no ascites. The expansile lytic lesion involving the right iliac crest is again noted. Lucency in the supra-acetabular location on the left is also similar to prior exam. No definite new lytic lesion is identified. IMPRESSION: 1. No evidence of thoracic lymphadenopathy or pulmonary metastatic disease. The ground glass infiltrates in the bilateral upper lobes have improved. 2. Improving pulmonary emboli. 3. Expansile lesions of the right scapula and left 4th rib, stable. 4. No evidence of abdominal or pelvic lymphadenopathy. Solid right renal mass does appear to be slightly smaller in size. 5. Expansile lytic lesions of the right iliac bone left supraacetabular region appears stable. Dictated by: Dictated on workstation # [id number]
--- NOTE | 2021-08-15 14:37 | Diagnostic Imaging Report ---
INDICATION: Renal and prostate carcinoma. TECHNIQUE: The patient was administered 25.8 mCi technetium 99m MDP intravenously and whole-body imaging was performed after a 3 hour delay. CORRELATION is made with prior bone scan from 12/02/2020. Uptake of activity by the axial and appendicular skeleton is noted. There is uptake by the kidneys with excretion into the urinary bladder. Uptake at the level of the left acetabulum is similar to prior study. Uptake in the right iliac crest also appears similar to prior exam. There is some uptake involving the lateral aspect of the left 4th rib, similar to prior study. The uptake involving the medial aspect of the right scapula is similar. Uptake in the upper thoracic spine is similar to prior study. No new foci are identified. IMPRESSION: Stable metastatic lesions when compared with exam from 12/02/2020. Dictated by: Dictated on workstation # [id number]
== END ==
LOC: CARD 12:00
PROVIDERS: ATTEND Internal Medicine
DX: C61 Malignant neoplasm of prostate (principal); C64.1 Malignant neoplasm of right kidney, except renal pelvis; I26.99 Other pulmonary embolism without acute cor pulmonale; M89.9 Disorder of bone, unspecified; N28.89 Other specified disorders of kidney and ureter
CPT/HCPCS: 71260; 74177; 78306; 82565; 84520; A9503; 36415

== ENCOUNTER → 2021-12-29 | Outpatient (RCR) | payer MEDICARE ==
[~2021-12-29] MED LIST changes: -CATHETER FLUSH 10 ML SYR IV PRN; -HOLD METFORMIN - RECEIVED CONTRAST 20 ML VIAL IV SCH; -IOHEXOL 350 MG/ML 100 ML (OMNIPAQUE 350) VIAL IV ONE; -NS 100 ML (IVPB) BAG IV ONE
== END | disposition home or self-care (01) ==
LOC: ONC 12-17 08:51
PROVIDERS: ATTEND Radiology Radiation Oncology
DX: Z51.0 Encounter for antineoplastic radiation therapy (principal); C64.9 Malignant neoplasm of unspecified kidney, except renal pelvis; C79.51 Secondary malignant neoplasm of bone; I25.10 Atherosclerotic heart disease of native coronary artery without angina pectoris; I10 Essential (primary) hypertension; E78.5 Hyperlipidemia, unspecified
CPT/HCPCS: 77290; 77295; 77300; 77334; 77417; 77470; 99214

== ENCOUNTER 2022-01-08 13:23 | Outpatient (RCR) | payer MEDICARE | END 2022-01-29 | disposition home or self-care (01) | LOC: ONC 13:23 | PROVIDERS: ATTEND Radiology Radiation Oncology | DX: Z51.0 Encounter for antineoplastic radiation therapy (principal); C64.9 Malignant neoplasm of unspecified kidney, except renal pelvis; C79.51 Secondary malignant neoplasm of bone; I25.10 Atherosclerotic heart disease of native coronary artery without angina pectoris; I10 Essential (primary) hypertension; E78.5 Hyperlipidemia, unspecified | CPT/HCPCS: 77412; G0463; 77336; 77417 ==

== ENCOUNTER → 2022-06-02 | Outpatient (CLI) | payer MEDICARE ==
[~2022-06-02] MED LIST changes: +HOLD METFORMIN - RECEIVED CONTRAST 20 ML VIAL IV SCH; +IOHEXOL 350 MG/ML 100 ML (OMNIPAQUE 350) VIAL IV ONE; +NS 100 ML (IVPB) BAG IV ONE
[2022-06-02] MEDS: CATHETER FLUSH 10 ML SYR IVP PRN ×2 (11:31→12:33)
[2022-06-02 11:42] LABS: ALBUMIN 3.9 GM/DL (3.2-4.5)
[2022-06-02 11:43] LABS: POTASSIUM 4.1 MMOL/L (3.6-5.0)
[2022-06-02 11:44] LABS: CALCIUM 9.3 MG/DL (8.5-10.1)
[2022-06-02 11:45] LABS: TOTAL PROTEIN 6.7 GM/DL (6.4-8.2)
[2022-06-02 11:47] LABS: BILIRUBIN,TOTAL 0.3 MG/DL (0.1-1.0)
[2022-06-02 11:49] LABS: CREATININE SERUM 0.88 MG/DL (0.60-1.30)
--- NOTE | 2022-06-02 16:12 | Diagnostic Imaging Report ---
PROCEDURE: CT of the chest and pelvis with contrast and CT of the abdomen with and without contrast. TECHNIQUE: Precontrast acquisitions were acquired through the abdomen. Multiple contiguous axial images were obtained through the chest, abdomen and pelvis after administration of intravenous contrast. Auto Exposure Controls were utilized during the CT exam to meet ALARA standards for radiation dose reduction. INDICATION: Neoplasm of the right kidney. COMPARISON: CT chest and pelvis of 08/15/2021. FINDINGS: The target lesions from prior examination are as follows: 1. Stable size of the exophytic mixed solid and cystic mass arising from the upper pole of the right kidney. This measures 4.4 x 4.6 cm (previously 4.4 x 4.5 cm). 2. Stable expansile lytic lesion in the lateral left 4th rib measuring 3.4 x 2.2 cm (previously 3.4 x 2.2 cm when measured similarly). 3. The destructive expansile lesion in the body of the right scapula is stable measuring 3.5 x 4.9 cm (previously 3.5 x 4.8 cm). 4. Expansile lytic lesion in the right ilium measures 6.7 x 4.1 cm (previously 7.0 x 4.0 cm). No abnormality in the trachea. No pneumonia or edema. No suspicious pulmonary nodules have developed. No pleural effusion or pneumothorax. No supraclavicular or axillary lymphadenopathy. No mediastinal or hilar lymphadenopathy. Heart is normal in size. Normal caliber thoracic aorta. Multiple small nodules within the thyroid are stable. The liver, gallbladder and spleen are negative for metastases. Pancreas is normal. No adrenal mass. Left kidney is normal. No obstructive uropathy on either side. Urinary bladder is normally filled without wall thickening. The prostate is not enlarged. No abdominal or pelvic lymphadenopathy is developed. No bowel obstruction or colonic wall thickening. No new concerning osseous lesion. IMPRESSION: 1. Stable size primary tumor of the right kidney. 2. No change in the multifocal skeletal metastases. 3. No new metastatic disease within the chest, abdomen or pelvis. Dictated by: Dictated on workstation # [id number]
--- NOTE | 2022-06-02 16:37 | Diagnostic Imaging Report ---
Indication: Right renal malignancy, new onset back pain. Compared with bone scan 08/15/2021. Patient received 26.3 mCi intravenous dose technetium 99 MDP, after 3 hours whole-body planar imaging was performed. Findings: There has been the development of multiple foci of abnormal vertebral body and posterior element uptake throughout the thoracolumbar spine as well as multiple bilateral ribs and progressive abnormalities to the right scapula. New lesions involve the inter and subtrochanteric left femur as well as the left innominate bone at the supra-acetabular region as well as in the mid shaft of the left greater than right femur and lesion in the proximal right anterior tibia. Lesions involve the bilateral proximal and mid shafts of the humerus as well as the right greater than left glenoid and distal right clavicle. Impression: Adverse change findings are very suggestive of progressive widespread bony metastatic disease. Dictated by: Dictated on workstation # [id number]
== END ==
LOC: CARD 12:00
PROVIDERS: ATTEND Internal Medicine Hospice and Palliative Medicine
DX: C64.1 Malignant neoplasm of right kidney, except renal pelvis (principal); C61 Malignant neoplasm of prostate
CPT/HCPCS: 71260; 74178; 78306; 80053; 84153; 84403; A9503; 36415

== ENCOUNTER → 2022-06-09 | Outpatient (CLI) | payer MEDICARE ==
[~2022-06-09] MED LIST changes: +GADOTERATE 0.5 MMOL/ML (CLARISCAN) 15 ML VIAL IV ONE; +GADOTERATE 0.5 MMOL/ML (CLARISCAN) 20 ML VIAL IV ONE; -HOLD METFORMIN - RECEIVED CONTRAST 20 ML VIAL IV SCH; -IOHEXOL 350 MG/ML 100 ML (OMNIPAQUE 350) VIAL IV ONE; -NS 100 ML (IVPB) BAG IV ONE
--- NOTE | 2022-06-09 13:25 | Diagnostic Imaging Report ---
PROCEDURE: MRI lumbar spine with and without contrast. TECHNIQUE: Multiplanar, multisequence MRI of the lumbar spine was performed with and without contrast. DATE: June 09, 2022. COMPARISON: CT chest abdomen pelvis June 02, 2022. CT chest and pelvis August 15, 2021. INDICATION: 66-year-old male, history of renal and prostate malignancy. Evaluation for bone metastasis. FINDINGS: There are multiple T1 hypointense, T2 hyperintense, enhancing lesions present. This includes several lesions in the T12 vertebral body with the largest lesion near the superior endplate measuring up to 8 mm in size on sagittal postcontrast image 14. There are also lesions involving the posterior elements at T12. There is a larger lesion of the L1 vertebral body measuring approximately 3.4 x 2.4 cm in size. There is an additional lesion involving the right pedicle on axial T1 sequence image 15. There are 2 adjacent lesions of the L2 vertebral body well demonstrated on sagittal T1 sequence image 9 as well as additional separate lesion on sagittal T1 sequence image 15. There is also a lesion of the right pedicle on sagittal T1 sequence image 15. The T1 hyperintense lesion in the L3 vertebral body on sagittal T1 sequence image 12 is compatible with a hemangioma; however, the T1 hypointense lesion anteriorly enhances and is consistent with a bone metastasis. There is also a bone lesion of the L4 vertebral body extending to the superior endplate as well as additional lesion on sagittal image 14. There is also a large lesion of the L5 vertebral body. There are also lesions involving the spinous processes of L3, L4, and L5. There is a lesion of the spinous process of T12 on axial T1 sequence image 6. There are also enhancing bone lesions of the sacrum and iliac bones bilaterally. One of the larger right iliac bone lesions is expansile and can be seen on axial T1 sequence image 51 measuring at least 5.1 cm in size. There is no identified compression deformity or other fracture. The visualized portions of the spinal cord are unremarkable in signal. The conus medullaris terminates at the level of L1-L2. The disc heights are fairly well preserved. L1-L2: There is mild diffuse disc bulge. The facet joints and ligamentum flavum are unremarkable. There is no foraminal narrowing. There is no spinal canal stenosis. L2-L3: There is no disc bulge. The facet joints and ligamentum flavum are unremarkable. There is no foraminal narrowing. There is no spinal canal stenosis. L3-L4: There is mild diffuse disc bulge. There is mild to moderate bilateral lateral recess narrowing. The facet joints and ligamentum flavum are unremarkable. There is mild bilateral foraminal narrowing. There is mild spinal canal stenosis. L4-L5: There is diffuse disc bulge. There is moderate narrowing of bilateral lateral recesses. The facet joints and ligamentum flavum are unremarkable. There is moderate bilateral foraminal narrowing. There is mild spinal canal stenosis. L5-S1: There is no disc bulge. There are right facet degenerative changes. There is no foraminal narrowing. There is no spinal canal stenosis. There is a heterogeneous signal mass involving the right kidney with internal enhancement measuring at least 4.7 x 3.9 cm in axial extent. IMPRESSION: 1. Numerous bone metastasis involving the thoracic spine, lumbar spine, sacrum, and bilateral iliac bones. 2. No identified pathologic fracture. 3. Heterogeneous signal right renal mass likely relating to provided history of renal malignancy. 4. Degenerative changes of the lumbar spine as described level by level above. Dictated by: Dictated on workstation # [id number]
== END ==
LOC: RAD 08:45
PROVIDERS: ATTEND Internal Medicine Hospice and Palliative Medicine
DX: C64.1 Malignant neoplasm of right kidney, except renal pelvis (principal); C79.51 Secondary malignant neoplasm of bone; M47.817 Spondylosis without myelopathy or radiculopathy, lumbosacral region
CPT/HCPCS: 72158

== ENCOUNTER → 2022-07-01 | Outpatient (RCR) | payer MEDICARE ==
[~2022-07-01] MED LIST changes: -GADOTERATE 0.5 MMOL/ML (CLARISCAN) 15 ML VIAL IV ONE; -GADOTERATE 0.5 MMOL/ML (CLARISCAN) 20 ML VIAL IV ONE
== END | disposition home or self-care (01) ==
LOC: ONC 06-17 11:17
PROVIDERS: ATTEND Radiology Radiation Oncology
DX: Z51.0 Encounter for antineoplastic radiation therapy (principal); C79.51 Secondary malignant neoplasm of bone; C80.1 Malignant (primary) neoplasm, unspecified
CPT/HCPCS: 77280; 77290; 77295; 77300; 77334; 77417; 77470; 99213

== ENCOUNTER 2022-07-03 09:09 | Outpatient (RCR) | payer MEDICARE ==
[2022-07-15] MEDS ORDERED: OXYC10TA7 PO (11:53)
[2022-07-15] MEDS ORDERED: OMEP40CA6 PO (11:53)
[2022-07-15] MEDS ORDERED: LISI40TA9 PO (11:53)
[2022-07-15] MEDS ORDERED: HYDR25TA4 PO (11:53)
[2022-07-15] MEDS ORDERED: SERT-413 PO (11:53)
[2022-07-15] MEDS ORDERED: LENV18CA PO (11:53)
[2022-07-15] MEDS ORDERED: MORP60TA69 PO (11:53)
[2022-07-15] MEDS ORDERED: ATOR10TA66 PO (11:53)
[2022-07-15] MEDS ORDERED: APIX5TAB PO (11:53)
[2022-07-15] MEDS ORDERED: EVER5TAB PO (11:53)
== END 2022-07-31 | disposition home or self-care (01) ==
LOC: ONC 09:09
PROVIDERS: ATTEND Radiology Radiation Oncology
DX: Z51.0 Encounter for antineoplastic radiation therapy (principal); C64.9 Malignant neoplasm of unspecified kidney, except renal pelvis; C79.51 Secondary malignant neoplasm of bone; E78.5 Hyperlipidemia, unspecified; I10 Essential (primary) hypertension
CPT/HCPCS: 77336

== ENCOUNTER 2022-07-14 19:17 | Observation (INO) | payer MEDICARE ==
[~2022-07-14] VITALS: Ht 173 cm; Wt 78.7 kg
[2022-07-14] MEDS ORDERED: ACETAMINOPHEN 500 MG TAB (TYLENOL) PO PRN (19:30)
[2022-07-14] MEDS ORDERED: CEFEPIME INJECTION 1,000 MG in NS (IVPB) 50 ML IV ONE (19:30)
[2022-07-14] MEDS ORDERED: NS IV 1000 ML 1,000 ML IV SCH (19:30)
--- NOTE | 2022-07-14 19:41 | ED General ---
General Stated Complaint: ELEVATED PAIN,WEAKNESS Source of Information: Patient (PT IS A VERY POOR HISTORIAN WITH VERY POOR MEMORY AND VERY SLOW MENTATION), EMS History of Present Illness Date Seen by Provider: Jul 14, 2022 Time Seen by Provider: 19:28 Initial Comments PT ARRIVES VIA EMS FROM HOME--LIVES WITH , BUT NO FAMILY ARE HERE WITH PT. PT HAS METASTATIC PROSTATE CANCER AND HAS CHRONIC GENERALIZED PAIN, AND IS ON MORPHINE PT IS NOT ON HOSPICE PT JUST COMPLETED RADIATION--DONE HERE, AND IS STILL GETTING CHEMO--DONE AT PT HAS HAD INCREASED GENERALIZED PAIN TODAY, ESPECIALLY IN GROIN AREA REPORTED THAT PAIN WAS 10/10 AT HOME C/O GENERALIZED WEAKNESS--TOO WEAK TO STAND TEMP WAS 100.4 FOR EMS--PT UNAWARE OF FEVER BP 104 SYSTOLIC FOR EMS O2 SAT 92% ON ROOM AIR FOR EMS, PLACE ON O2 AT 2L/NC--PT DOES NOT HAVE HOME O2. PT NOTED TO HAVE A COUGH ON EXAM. PT DOES NOT KNOW HOW LONG HE HAS HAD A COUGH DENIES FEELING SHORT OF BREATH DENIES CHEST PAIN EMS GAVE FENTANYL 50 MCG PRIOR TO ARRIVAL AND STARTED IV FLUIDS RATES PAIN 7/10 ON ARRIVAL PT WAS RECENTLY EXPOSED TO COVID PT STATES HE HAS HAD A COVID VACCINE, BUT DOES NOT KNOW HOW MANY HE HAS HAD OR WHEN HE HAD THEM GOES TO FOR ALL MEDICAL CARE Allergies and Home Medications Allergies Coded Allergies: No Known Drug Allergies (Unverified , 10/18/11) Patient Home Medication List Home Medication List Reviewed: Yes Acetaminophen (Tylenol) 325 Mg Tablet, 650 MG PO Q6H PRN, (Reported) Entered as Reported by: RAJ RICE on 10/20/11 0934 Apixaban (Eliquis) 5 Mg Tablet, 5 MG PO BID Prescribed by: YAZMIN MCINTYRE on 06/08/21 1820 Aspirin (Aspirin Ec 81 Mg) 81 Mg Tabec, 81 MG PO DAILY, (Reported) Entered as Reported by: RAJ RICE on 10/20/11 0934 Clopidogrel (Plavix) 75 Mg Tablet, 75 MG PO DAILY, (Reported) Entered as Reported by: RAJ RICE on 10/20/11 0934 Lisinopril (Zestril) 5 Mg Tablet, 5 MG PO HS, (Reported) Entered as Reported by: RAJ RICE on 10/20/11 0934 Metoprolol Succinate (Toprol Xl 25MG) 25 Mg Tab.sr.24h, 25 MG PO DAILY, (Reported) Entered as Reported by: RAJ RICE on 10/20/11 0934 Phenylephrine/Diphenhydramine (Benadryl-D Allergy-Sinus Ulttb) 1 Each Tablet, 1 EACH PO PRN, (Reported) Entered as Reported by: CELESTE HARVEY on 05/29/13 0742 Pravastatin Sodium (Pravachol) 20 Mg Tablet, 20 MG PO DAILY, (Reported) Entered as Reported by: RAJ RICE on 10/20/11 0934 Review of Systems Review of Systems Constitutional: see HPI, fever, malaise, weakness Respiratory: cough; No short of breath Cardiovascular: No chest pain Gastrointestinal: see HPI Musculoskeletal: see HPI Skin: no symptoms reported Psychiatric/Neurological: No Symptoms Reported Past Ifhbysn-Soakiz-Eiueok Hx Seasonal Allergies Seasonal Allergies: No Past Medical History Surgeries: Yes (neck) Cardiac, Coronary Stent, Orthopedic Respiratory: Yes Pulmonary Embolism Cardiac: Yes (stent placement 10 years ago) Coronary Artery Disease, High Cholesterol, Hypertension Neurological: No Reproductive Disorders: No Genitourinary: Yes (METASTATIC PROSTATE CANCER) Gastrointestinal: No Musculoskeletal: Yes (CHRONIC GENERALIZED PAIN/ METASTATIC CANCER) Endocrine: No HEENT: No Cancer: Yes Prostate, Bone, Kidney Psychosocial: No Integumentary: No Blood Disorders: No Physical Exam Vital Signs Vital Signs - First Documented 07/14/22 19:29 Temp 37.9 Pulse 93 Resp 22 B/P (MAP) 131/75 (93) Pulse Ox 95 O2 Delivery Room Air Capillary Refill : Height, Weight, BMI Height: 5'9.00" Weight: 190lbs. oz. 86.891561nm; 25.00 BMI Method:Stated General Appearance: No Apparent Distress, WD/WN, Chronically ill, Other (SOMEWHAT LETHARGIC) HEENT: Other (ORAL MUCOSA DRY,, LIPS CAKED AND CRACKED. ) Respiratory: No Accessory Muscle Use, No Respiratory Distress, Other (SPITTING UP CLEAR MUCOUS/SPUTUM) Cardiovascular: No Murmur, Tachycardia (MILD) Gastrointestinal: Non Tender, Soft, Tenderness (SUPRAPUBIC ) Extremity: No Pedal Edema Neurologic/Psychiatric: Alert, Other (LETHARGIC,SLOW MENTATION AND POOR MEMORY. NO FOCAL DEFICITS, AND MOVES ALL EXTREMITIES EQUALLY. SPEECH IS NOT SLURRED. NO FACIAL DROOP. PT WITH GENERALIZED WEAKNESS AND SOME DIFFICULTY FOLLOWING COMMANDS. ) Skin: Normal Color, Warm/Dry Focused Exam Sepsis Stage: Sepsis Possible Source: Other (LUNG AND/OR URINARY TRACT) Lactate Level 07/14/22 19:30: Lactic Acid Level 1.84 Time of Focused Exam: 21:00 Respiratory: Normal Breath Sounds, No Accessory Muscle Use, No Respiratory Distress Cardiovascular: Regular Rate, Rhythm, Normal Peripheral Pulses Capillary Refill: Less Than 3 Seconds Skin: normal color, warm/dry Lactic Acid Level Laboratory Tests Test 07/14/22 19:30 Lactic Acid Level 1.84 MMOL/L (0.50-2.00) Within 3hrs of presentation: Admin fluids, Admin ABX, Blood cultures prior to ABX's, Focus exam, Lactate level Progress/Results/Core Measures Suspected Sepsis SIRS Temperature: Pulse: Respiratory Rate: Laboratory Tests 07/14/22 19:30: White Blood Count 6.7 Blood Pressure / Mean: 07/14/22 19:30: Lactic Acid Level 1.84 Laboratory Tests 07/14/22 19:30: Creatinine 1.64H, INR Comment 1.1, Platelet Count 119L, Total Bilirubin 0.5 Results/Orders Lab Results Laboratory Tests Test 07/14/22 19:30 07/14/22 19:32 Range/Units White Blood Count 6.7 4.3-11.0 10^3/uL Red Blood Count 4.11 L 4.30-5.52 10^6/uL Hemoglobin 12.2 L 13.3-17.7 g/dL Hematocrit 37 L 40-54 % Mean Corpuscular Volume 90 80-99 fL Mean Corpuscular Hemoglobin 30 25-34 pg Mean Corpuscular Hemoglobin Concent 33 32-36 g/dL Red Cell Distribution Width 14.6 H 10.0-14.5 % Platelet Count 119 L 130-400 10^3/uL Mean Platelet Volume 10.3 9.0-12.2 fL Immature Granulocyte % (Auto) 0 % Neutrophils (%) (Auto) 85 H 42-75 % Lymphocytes (%) (Auto) 5 L 12-44 % Monocytes (%) (Auto) 10 0-12 % Eosinophils (%) (Auto) 0 0-10 % Basophils (%) (Auto) 0 0-10 % Neutrophils # (Auto) 5.7 1.8-7.8 10^3/uL Lymphocytes # (Auto) 0.3 L 1.0-4.0 10^3/uL Monocytes # (Auto) 0.6 0.0-1.0 10^3/uL Eosinophils # (Auto) 0.0 0.0-0.3 10^3/uL Basophils # (Auto) 0.0 0.0-0.1 10^3/uL Immature Granulocyte # (Auto) 0.0 0.0-0.1 10^3/uL Neutrophils % (Manual) 86 % Lymphocytes % (Manual) 3 % Monocytes % (Manual) 11 % Percent Immature Platelet Fraction 4.2 0.0-7.6 % Blood Morphology Comment NORMAL Prothrombin Time 14.5 12.2-14.7 SEC INR Comment 1.1 0.8-1.4 Activated Partial Thromboplast Time 35 24-35 SEC Sodium Level 135 135-145 MMOL/L Potassium Level 4.4 3.6-5.0 MMOL/L Chloride Level 96 L 98-107 MMOL/L Carbon Dioxide Level 24 21-32 MMOL/L Anion Gap 15 H 5-14 MMOL/L Blood Urea Nitrogen 25 H 7-18 MG/DL Creatinine 1.64 H 0.60-1.30 MG/DL Estimat Glomerular Filtration Rate 45 BUN/Creatinine Ratio 15 Glucose Level 107 H 70-105 MG/DL Lactic Acid Level 1.84 0.50-2.00 MMOL/L Calcium Level 8.8 8.5-10.1 MG/DL Corrected Calcium 9.2 8.5-10.1 MG/DL Total Bilirubin 0.5 0.1-1.0 MG/DL Aspartate Amino Transf (AST/SGOT) 65 H 5-34 U/L Alanine Aminotransferase (ALT/SGPT) 31 0-55 U/L Alkaline Phosphatase 87 40-136 U/L Total Protein 6.5 6.4-8.2 GM/DL Albumin 3.5 3.2-4.5 GM/DL Procalcitonin 0.14 H <0.10 NG/ML Influenza Type A (RT-PCR) Not Detected Not Detecte Influenza Type B (RT-PCR) Not Detected Not Detecte SARS-CoV-2 RNA (RT-PCR) Detected H Not Detecte My Orders Orders - LAVONNE TOBAR DO Ed Iv/Invasive Line Start (07/14/22 19:30) Ekg Tracing (07/14/22:30) O2 (07/14/22:30) Monitor-Rhythm Ecg Trace Only (07/14/22:30) Cbc With Automated Diff (07/14/22:) Comprehensive Metabolic Panel (07/14/22:30) Procalcitonin (Pct) (07/14/22:30) Blood Culture (07/14/22:) Ekg Tracing (07/14/22:) Covid 19 Inhouse Test (07/14/22:) Urinalysis (07/14/22:) Urine Culture (07/14/22:) Protime With Inr (07/14/22:) Partial Thromboplastin Time (07/14/22:) Chest 1 View, Ap/Pa Only (07/14/22:30) Acetaminophen Tablet (Tylenol Tablet) (07/14/22:30) Ed Iv/Invasive Line Start (07/14/22:30) Ed Iv/Invasive Line Start (07/14/22:30) Vital Signs Adult Sepsis Patie Q15M (07/14/22:30) O2 (07/14/22:30) Remove Rings In Anticipation O (07/14/22:) Lactic Acid Analyzer (07/14/22:30) Ns Iv 1000 Ml (Sodium Chloride 0.9%) (07/14/22:30) Cefepime Injection (Maxipime Injection) (07/14/22:30) Influenza A And B By Pcr (07/14/22:) Isolation Central Supply Req (07/14/22:30) Manual Differential (07/14/22:30) Ed Admission (Communication) (07/14/22 21:26) Medications Given in ED Current Medications Medications Dose Ordered Sig/Amrik Route Start Time Stop Time Status Last Admin Dose Admin Acetaminophen 1,000 mg ONCE PRN PO 07/14/22 19:30 07/14/22 20:08 DC 07/14/22 20:07 1,000 MG Cefepime HCl 1000 mg/Sodium Chloride 50 ml @ 100 mls/hr ONCE ONCE IV 07/14/22 19:30 07/14/22 19:59 DC 07/14/22 20:08 100 MLS/HR Vital Signs/I&O 07/14/22 07/14/22 19:29 19:29 Temp 37.9 Pulse 93 Resp 22 B/P (MAP) 131/75 (93) Pulse Ox 95 O2 Delivery Room Air Room Air 07/15/22 00:00 Intake Total 1550 ml Balance 1550 ml Capillary Refill : Progress Note : Progress Note PLACED IN ISOLATION ROOM PPE WORN COVID AND FLU TESTING DONE SEPSIS PROTOCOL INITIATED GIVEN: -IV FLUIDS -TYLENOL -CEFEPIME NO DETERIORATION IN PT'S CONDITION DURING ER STAY ECG Initial ECG Impression Date: Jul 14, 2022 Initial ECG Impression Time: 19:41 Initial ECG Rate: 87 Initial ECG Rhythm: Normal Sinus Diagnostic Imaging Comments CXR--PER RADIOLOGIST REPORT AT 2104 The heart and mediastinal silhouette are normal in appearance. The lungs are clear. There is no pneumothorax or pleural fluid. There is a sclerotic lesion in the left 4th rib which appears unchanged from 06/08/2021. IMPRESSION: No acute infiltrate or pneumothorax or pleural fluid. Sclerotic lesion in the left 4th rib appears unchanged compared to 06/08/2021, this may represent a metastatic lesion. Departure Communication (Admissions) 2124--SPOKE WITH DR. ANDERSON, HOSPITALIST, ACCEPTS PT FOR ADMIT. SHE WILL DO ADMIT ORDERS. Impression Primary Impression: COVID-19 virus infection Additional Impressions: Prostate cancer metastatic to multiple sites Sepsis Dehydration Generalized weakness Chronic pain Disposition: ADMITTED INPATIENT Condition: Stable Admissions Decision to Admit Reason: Admit from ER (General) Decision to Admit/Date: Jul 14, 2022 Time/Decision to Admit Time: 21:25 Departure-Patient Inst. Referrals: SHANIKA BENSON MD (PCP/Family) Primary Care Physician LAVONNE TOBAR DO Jul 14, 2022 19:41
[2022-07-14 19:42] LABS: HEMOGLOBIN 12.2 g/dL (13.3-17.7); MEAN PLATELET VOLUME 10.3 fL (9.0-12.2)
[2022-07-14 19:44] LABS: BASOPHILS % (AUTO) 0 % (0-10); EOSINOPHILS % (AUTO) 0 % (0-10); HEMATOCRIT 37 % (40-54); LYMPHOCYTES # (AUTO) 0.3 10^3/uL (1.0-4.0); LYMPHOCYTES % (AUTO) 5 % (12-44); MEAN CORPUSCULAR HEMOGLOBIN 30 pg (25-34); MEAN CORPUSCULAR HGB CONC 33 g/dL (32-36); MEAN CORPUSCULAR VOLUME 90 fL (80-99); MONOCYTES # (AUTO) 0.6 10^3/uL (0.0-1.0); MONOCYTES % (AUTO) 10 % (0-12); NEUTROPHILS # (AUTO) 5.7 10^3/uL (1.8-7.8); NEUTROPHILS % (AUTO) 85 % (42-75); PLATELET COUNT 119 10^3/uL (130-400); WHITE BLOOD COUNT 6.7 10^3/uL (4.3-11.0)
[2022-07-14 19:58] LABS: INR 1.1 (0.8-1.4); PROTHROMBIN TIME PATIENT 14.5 SEC (12.2-14.7)
[2022-07-14 20:00] LABS: LYMPHOCYTES % (MANUAL) 3 %; MONOCYTES % (MANUAL) 11 %; NEUTROPHILS % (MANUAL) 86 %; RBC MORPH NORMAL
[2022-07-14 20:32] LABS: ALBUMIN 3.5 GM/DL (3.2-4.5); BILIRUBIN,TOTAL 0.5 MG/DL (0.1-1.0); CALCIUM 8.8 MG/DL (8.5-10.1); CREATININE SERUM 1.64 MG/DL (0.60-1.30); POTASSIUM 4.4 MMOL/L (3.6-5.0); TOTAL PROTEIN 6.5 GM/DL (6.4-8.2)
--- NOTE | 2022-07-14 21:00 | Diagnostic Imaging Report ---
INDICATION: Fever Frontal chest obtained at 08:49 p.m. and compared to 06/08/2021. The heart and mediastinal silhouette are normal in appearance. The lungs are clear. There is no pneumothorax or pleural fluid. There is a sclerotic lesion in the left 4th rib which appears unchanged from 06/08/2021. IMPRESSION: No acute infiltrate or pneumothorax or pleural fluid. Sclerotic lesion in the left 4th rib appears unchanged compared to 06/08/2021, this may represent a metastatic lesion. Dictated by: Dictated on workstation # [id number]
[2022-07-14 22:05] VITALS: BP 114/56
[2022-07-14 22:14] VITALS: BP 117/73
[2022-07-14] MEDS ORDERED: morphine IMMEDIATE RELEASE 15 MG TABLET PO PRN (22:15)
[2022-07-14] MEDS ORDERED: MELATONIN 3 MG TABLET PO PRN (22:15)
[2022-07-14] MEDS ORDERED: BISACODYL 10 MG SUPP (DULCOLAX) PR PRN (22:15)
[2022-07-14] MEDS ORDERED: diphenhydrAMINE 50 MG/ML INJ (BENADRYL) IVP PRN (22:15)
[2022-07-14] MEDS ORDERED: ANTACID SUSP 30 ML UDC (MYLANTA) PO PRN (22:15)
[2022-07-14] MEDS ORDERED: CALCIUM CARBONATE 500 MG (TUMS) TAB.CHEW PO PRN (22:15)
[2022-07-14] MEDS ORDERED: ONDANSETRON 4 MG/2 ML (SDV) Z0FRAN IV PRN (22:15)
[2022-07-14] MEDS ORDERED: ONDANSETRON 4 MG (ZOFRAN) ORAL DISSOLVE TAB PO PRN (22:15)
[2022-07-14] MEDS ORDERED: MILK OF MAGNESIA 400 MG/5 ML 30 ML UDC PO PRN (22:15)
[2022-07-14] MEDS ORDERED: NALOXONE 0.4 MG/ML 1 ML (NARCAN) VIAL IV PRN (22:15)
[2022-07-14] MEDS ORDERED: ACETAMINOPHEN 325 MG TABLET PO PRN (22:15)
[2022-07-14] MEDS ORDERED: polyethylene glycoL POWDER 17 GM (MIRALAX) PACK PO PRN (22:15)
[2022-07-14] MEDS ORDERED: diphenhydrAMINE 25 MG TAB (BENADRYL) PO PRN (22:15)
[2022-07-14] MEDS ORDERED: LACTULOSE SYRUP 10GM/15ML (ENULOSE) 30ML UDC PO PRN (22:15)
[2022-07-14] MEDS ORDERED: HYDROmorphone 2 MG/ML VIAL (DILAUDID) IV PRN (22:15)
[2022-07-14] MEDS: NS IV 1000 ML 1,000 ML IV SCH (22:20)
[2022-07-14] MEDS ORDERED: RT-ALBUTEROL HFA 8.5 GM INHALER IH PRN (22:30)
[2022-07-14] MEDS: ENOXAPARIN 40 MG/0.4 ML (LOVENOX) SYR SC SCH (22:42)
[2022-07-15] VITALS: BP 119/58
[2022-07-15] MEDS: ENOXAPARIN 40 MG/0.4 ML (LOVENOX) SYR SC SCH (01:30)
[2022-07-15 04:00] VITALS: BP 133/60
[2022-07-15 05:48] LABS: BASOPHILS % (AUTO) 0 % (0-10); LYMPHOCYTES # (AUTO) 0.3 10^3/uL (1.0-4.0); LYMPHOCYTES % (AUTO) 5 % (12-44); MEAN PLATELET VOLUME 10.3 fL (9.0-12.2)
[2022-07-15 05:50] LABS: EOSINOPHILS % (AUTO) 1 % (0-10); HEMATOCRIT 35 % (40-54); HEMOGLOBIN 11.2 g/dL (13.3-17.7); MEAN CORPUSCULAR HEMOGLOBIN 29 pg (25-34); MEAN CORPUSCULAR HGB CONC 32 g/dL (32-36); MEAN CORPUSCULAR VOLUME 90 fL (80-99); MONOCYTES # (AUTO) 0.5 10^3/uL (0.0-1.0); MONOCYTES % (AUTO) 8 % (0-12); NEUTROPHILS # (AUTO) 4.8 10^3/uL (1.8-7.8); NEUTROPHILS % (AUTO) 85 % (42-75); PLATELET COUNT 111 10^3/uL (130-400); WHITE BLOOD COUNT 5.7 10^3/uL (4.3-11.0)
[2022-07-15 05:58] LABS: POTASSIUM 4.1 MMOL/L (3.6-5.0)
[2022-07-15 05:59] LABS: CALCIUM 8.3 MG/DL (8.5-10.1)
[2022-07-15 06:00] LABS: TOTAL PROTEIN 5.6 GM/DL (6.4-8.2)
[2022-07-15 06:02] LABS: BILIRUBIN,TOTAL 0.5 MG/DL (0.1-1.0)
[2022-07-15 06:04] LABS: CREATININE SERUM 0.85 MG/DL (0.60-1.30)
[2022-07-15 07:28] VITALS: BP 131/69
[2022-07-15] MEDS ORDERED: DOCUSATE SODIUM 100 MG (COLACE) CAP PO SCH (09:00)
[2022-07-15] MEDS ORDERED: SENNOSIDES 8.6 MG (SENOKOT) TAB PO SCH (09:00)
[2022-07-15] MEDS: NS IV 1000 ML 1,000 ML IV SCH (09:34)
[2022-07-15] MEDS ORDERED: MORP60TA69 PO (11:53)
[2022-07-15] MEDS ORDERED: OMEP40CA6 PO (11:53)
[2022-07-15] MEDS ORDERED: OXYC10TA7 PO (11:53)
[2022-07-15] MEDS ORDERED: EVER5TAB PO (11:53)
[2022-07-15] MEDS ORDERED: LENV18CA PO (11:53)
[2022-07-15] MEDS ORDERED: APIX5TAB PO (11:53)
[2022-07-15] MEDS ORDERED: SERT-413 PO (11:53)
[2022-07-15] MEDS ORDERED: LISI40TA9 PO (11:53)
[2022-07-15] MEDS ORDERED: ATOR10TA66 PO (11:53)
[2022-07-15] MEDS ORDERED: HYDR25TA4 PO (11:53)
[2022-07-15 12:40] VITALS: BP 113/61
--- NOTE | 2022-07-15 15:06 | Physical Therapy Evaluation ---
PT Evaluation-General Medical Diagnosis Admission Date Jul 14, 2022 at 21:27 Medical Diagnosis: covid-19 Onset Date: Jul 14, 2022 Therapy Diagnosis Therapy Diagnosis: impaired mobility, strength Height/Weight Height (Feet): 5 Height (Inches): 9.00 Weight (Pounds): 190 Precautions Precautions/Isolations: Contact Isolation, Droplet Isolation, Fall Prevention Referral Physician: Isma Reason for Referral: Evaluation/Treatment Medical History Additional Medical History Past Medical History Surgeries: Yes (neck) Cardiac, Coronary Stent, Orthopedic Respiratory: Yes Pulmonary Embolism Cardiac: Yes (stent placement 10 years ago) Coronary Artery Disease, High Cholesterol, Hypertension Neurological: No Reproductive Disorders: No Genitourinary: Yes (METASTATIC PROSTATE CANCER) Gastrointestinal: No Musculoskeletal: Yes (CHRONIC GENERALIZED PAIN/ METASTATIC CANCER) Endocrine: No HEENT: No Cancer: Yes Prostate, Bone, Kidney Psychosocial: No Integumentary: No Blood Disorders: No Reviewed History: Yes Social History Current Living Status: Spouse Prior Prior Level of Function SCALE: Activities may be completed with or without assistive devices. 2-Ujxfveyuxp-ozisezk completes the activity by him/herself with no assistance from a helper. 5-Set-up or Clean-up Assistance-helper sets up or cleans up; patient completes activity. [place] assists only prior to or following the activity. 4-Supervision or Touching Assistance-helper provides verbal cues and/or touching/steadying and/or contact guard assistance as patient completes activity. Assistance may be provided throughout the activity or intermittently. 3-Partial/Moderate Assistance-helper does LESS THAN HALF the effort. [place] lifts, holds or supports trunk or limbs, but provides less than half the effort. 2-Substantial/Maximal Assistance-helper does MORE THAN HALF the effort. [place] lifts or holds trunk or limbs and provides more than half the effort. 3-Vlmctrmng-iluiov does ALL the effort. Patient does none of the effort to complete the activity. Or, the assistance of 2 or more helpers is required for the patient to complete the activity. If activity was not attempted, code reason: 7-Patient Refused. 9-Not Applicable-not attempted and the patient did not perform the activity before the current illness, exacerbation or injury. 10-Not Attempted due to Environmental Limitations-(lack of equipment, weather restraints, etc.). 88-Not Attempted due to Medical Conditions or Safety Concerns. Bed Mobility: 6 Transfers (B,C,W/C): 6 Gait: 6 Indoor Mobility (Ambulation): Independent cane PT Evaluation-Current Subjective Patient in bed pre tx, agrees to PT, states he has some minor back pain. Has telesitter in room. Pt/Family Goals to be independent at home Objective Patient Orientation: Person, Place, Situation Attachments: IV ROM/Strength ROM Lower Extremities WNL Strength Lower Extremities LLE (hip flexion 3+/5, knee flexion 4/5, knee extension 4/5, dorsiflexion 4/5), RLE (hip flexion 3+/5, knee flexion 4/5, knee extension 4/5, dorsiflexion 4/5) Sensory Vision: Functional Hearing: Functional Sensation Right Lower Extremit: Intact Sensation Left Lower Extremity: Intact Transfers Roll Left to Right (QC): 6 Sit to Lying (QC): 4 Lying to Sitting/Side of Bed(Q: 3 Sit to Stand (QC): 4 Gait Does the Patient Walk?: Yes Mode of Locomotion: Walk Anticipated Mode of Locomotion: Walk Walk 10 feet (QC): 4 Distance: 10'x2 Gait Assistive Device: Cane Single Point Comments/Gait Description CGA, ambulated to toilet to urinate and then back to his bed. Slightly unsteady but no LOB. Balance Sitting Static: Normal Sitting Dynamic: Normal Standing Static: Fair Standing Dynamic: Poor Treatment BLE supine exercises x15 (AP, HS, QS) Assessment/Needs Patient in bed post tx with nurse call, phone, tray, bed alarm on, telesitter in room. Patient has impaired mobility and strength. Needs min assist for sit to stand, CGA for ambulation. Rehab Potential: Fair PT Mcfp Goals Mcfp Goals PT Mcfp Goals Time Frame: Jul 22, 2022 Roll Left & Right (QC): 6 Sit to Lying (QC): 6 Lying-Sitting on Side/Bed(QC): 6 Sit to Stand (QC): 6 Chair/Ruu-oj-Aipgw Xfer(QC): 6 Walk 10 feet (QC): 6 Walk 50ft with 2 Turns (QC): 6 Walk 150 ft (QC): 6 PT Plan Problem List Problem List: Activity Tolerance, Functional Strength, Safety, Balance, Gait, Transfer, Bed Mobility, ROM Treatment/Plan Treatment Plan: Continue Plan of Care Treatment Plan: Bed Mobility, Education, Functional Activity Ana, Functional Strength, Gait, Safety, Therapeutic Exercise, Transfers Treatment Duration: Jul 22, 2022 Frequency: 6 times per week Estimated Hrs Per Day: .25 hour per day Patient and/or Family Agrees t: Yes Safety Risks/Education Patient Education: Gait Training, Transfer Techniques, Correct Positioning, Safety Issues Teaching Recipient: Patient Teaching Methods: Demonstration, Discussion Response to Teaching: Reinforcement Needed Discharge Recommendations Plan Patient will perform bed mobility and transfer training, balance and endurance training, functional strengthening, stair training, gait training, and education, to improve functional mobility and independence at home. Therapy Discharge Recommendati: Home & Family, Post Acute PT Time/GCodes Time In: 1417 Time Out: 1431 Total Billed Treatment Time: 14 Total Billed Treatment 1 visit SAHIL HOLLIDAY PT Jul 15, 2022 15:06
[2022-07-15 15:27] VITALS: BP 123/64
--- NOTE | 2022-07-15 16:09 | D/C HH Face to Face Order ---
D/C Face to Face Orders Reconcile Patient Problems Problems Reviewed?: Yes Instructions for Patient Via [employer], Patient Instructions/FollowUp: Take medications as prescribed. Follow up with your PCP. Return with worsening shortness of breath, weakness, or if you feel like you are getting worse. Physician to follow Patient: Bueno Discharge Diet for Home: No Restrictions Patient Data-Allergies,Ht & Wt Patient Allergies: Coded Allergies: No Known Drug Allergies (Unverified , 10/18/11) Height (Feet): 5 Height (Inches): 9.00 Weight (Pounds): 190 Home Health Need/Face to Face Date of Face to Face: Jul 15, 2022 Clinical Findings: Generalized weakness and fatigue, Immune-compromised, Instability, Muscle weakness, Unsteady gait I have seen Pt gcrv-yj-spaw: Yes Discharged To: Home Diagnosis/Conditions: COVID Renal cell carcinoma Metastatic prostate cancer Debility Problems/Diagnosis/Condition: (1) COVID-19 virus infection (2) Renal cell carcinoma (3) Prostate cancer metastatic to multiple sites (4) Debility Patient is Homebound due to: Michaela fall risk due to instabilty, Muscle weakness Homebound Status Due to the above stated illness, injury or surgical procedure (medical condition or diagnosis) and associated clinical findings, the patient is homebound because of his/her inability to leave home except with aid of a supportive device and/or person AND leaving the home requires a considerable and taxing effort or is medically contraindicated. Pt req the following assistanc: Aid of another person Home Health Nursing Orders Home Health Services Order: Nursing Services, Malted Milk Mixer-Evaluate & Treat, Physical Therapy-Evaluate & Treat Home Health Infusion Therapy Line Start Date: Jul 14, 2022 Therapy Orders Therapy Orders: OT (must have SN or PT order), Physical Therapy Therapy Specific Orders: Eval assistive deivces, Teach enviro modifications/safety, Gait training, Increase strength/endurance [facility] cert[facility] that this patient is under my care and that I, a nurse practitioner or a physician; a child and youth program assistant working with me, had a face to face encounter that - meets the physician face to face encounter requirements with this patient as dated. DANIELLE GOODWIN MD Jul 15, 2022 16:09
--- NOTE | 2022-07-15 18:24 | Short Stay Summary-Hospitalist ---
History of Present Illness HPI/Chief Complaint Rock Milton is a 66 year old male with metastatic prostate cancer and renal cell carcinoma who presented with weakness. He also reports cough. He denies shortness of breath. He has body and joint aches. He has still been able to ambulate. He has been able to eat and drink. He denies fevers and chills. He denies chest pain. He denies abdominal pain, nausea, vomiting, and diarrhea. Source: patient Exam Limitations: no limitations Date Seen 07/15/22 Time Seen by a Provider: 12:00 Attending Physician Berto Bueno MD PCP Admitting Physician: Adore Doyle DO Attending Physician: Adore Doyle DO Referring Physician Date of Admission Jul 14, 2022 at 21:27 Home Medications & Allergies Home Medications Reviewed patient Home Medication Reconciliation performed by pharmacy medication reconciliations chemical technician and/or nursing. Patients Allergies have been reviewed. Allergies Allergies Coded Allergies No Known Drug Allergies (Vmppyschrs13/18/11) Past Mlubtqg-Eaqlgj-Pefcpd Hx Patient Social History Tobacco Use?: Yes Tobacco type used: Cigarettes Smoking Status: Current Everyday Smoker Use of E-Cig and/or Vaping dev: No Substance use?: No Alcohol Use?: Yes Alcohol type: Beer, Hard Liquor Alcohol Frequency: Once in a while Pt feels they are or have been: No Immunizations Up To Date First/Initial COVID19 Vaccinat: DEC 2020 Second COVID19 Vaccination Rocael: DECEMBER 2020 Seasonal Allergies Seasonal Allergies: No Current Status Advance Directives: No Communicates: Verbally Primary Language: Czech Preferred Spoken Language: Czech Is interpretation needed?: No Past Medical History Surgeries: Cardiac, Coronary Stent, Orthopedic Pulmonary Embolism Coronary Artery Disease, High Cholesterol, Hypertension Prostate, Bone, Kidney Blood Disorders: No Family Medical History No Pertinent Family Hx Review of Systems Constitutional: malaise, weakness EENTM: no symptoms reported Respiratory: cough Cardiovascular: no symptoms reported Gastrointestinal: no symptoms reported Genitourinary: no symptoms reported Physical Exam Physical Exam Vital Signs Vital Signs - First Documented 07/14/22 07/14/22 07/14/22 19:29 22:10 22:14 Temp 37.9 Pulse 93 Resp 22 B/P (MAP) 131/75 (93) Pulse Ox 95 O2 Delivery Room Air O2 Flow Rate 2.00 FiO2 21 Capillary Refill : Less Than 3 Seconds Height, Weight, BMI Height: 5'9.00" Weight: 190lbs. oz. 86.587126ne; 26.29 BMI Method:Stated General Appearance: No Apparent Distress, WD/WN, Chronically ill HEENT: PERRL/EOMI, Pharynx Normal Neck: Normal Inspection, Supple Respiratory: Lungs Clear, Normal Breath Sounds, No Respiratory Distress Cardiovascular: Regular Rate, Rhythm, No Edema, Normal Peripheral Pulses Gastrointestinal: Normal Bowel Sounds, Non Tender, Soft Extremity: Normal Inspection, No Pedal Edema Neurologic/Psychiatric: Alert, Normal Mood/Affect Skin: Normal Color, Warm/Dry Results Results/Procedures Labs Laboratory Tests 07/14/22 19:30 07/15/22 05:37 Patient resulted labs reviewed. Imaging: Reviewed Imaging Report Short Stay Diagnosis Discharge Diagnosis-Short Stay Admission Diagnosis COVID-19 Final Discharge Diagnosis COVID-19 Conclusion Plan COVID-19 No supplemental oxygen requirement Supportive care recommended SHAY Resolved with IV fluids Debility Home health care Metastatic prostate cancer Renal cell carcinoma Pain of metastatic malignancy Diagnosis/Problems Diagnosis/Problems (1) COVID-19 virus infection Status: Acute (2) Prostate cancer metastatic to multiple sites Status: Acute (3) Renal cell carcinoma Status: Acute (4) Debility Status: Acute DANIELLE GOODWIN MD Jul 15, 2022 18:24
== END 2022-07-15 17:17 | disposition home or self-care (01) ==
LOC: EDUNIT# 19:17 → ER 19:25 → 4TH 21:27 → UNDOADMOB 21:27 → 4TH 22:09 → UNDODISOB 07-15 17:17
PROVIDERS: ADMIT Internal Medicine; ATTEND Internal Medicine
DX: U07.1 COVID-19 (principal); C61 Malignant neoplasm of prostate; C79.00 Secondary malignant neoplasm of unspecified kidney and renal pelvis; R53.81 Other malaise; F17.210 Nicotine dependence, cigarettes, uncomplicated
CPT/HCPCS: 71045; 80053 ×2; 83605; 84145; 85007; 85025; 85027; 85610; 85730; 87040; 87636; 93005; 93041; 96372; 97161; 99284; G0378; 36415

== ENCOUNTER → 2022-08-12 | Outpatient (CLI) | payer MEDICARE ==
[~2022-08-12] MED LIST changes: +ATOR10TA66 PO; +EVER5TAB PO; +HYDR25TA4 PO; +LENV18CA PO; +LISI40TA9 PO; +MORP60TA69 PO; +OMEP40CA6 PO; +OXYC10TA7 PO; +SERT-413 PO
[2022-08-12 13:50] LABS: BASOPHILS % (AUTO) 0 % (0-10); EOSINOPHILS % (AUTO) 1 % (0-10); HEMATOCRIT 31 % (40-54); HEMOGLOBIN 9.5 g/dL (13.3-17.7); LYMPHOCYTES # (AUTO) 0.4 10^3/uL (1.0-4.0); LYMPHOCYTES % (AUTO) 11 % (12-44); MEAN CORPUSCULAR HEMOGLOBIN 28 pg (25-34); MEAN CORPUSCULAR HGB CONC 31 g/dL (32-36); MEAN CORPUSCULAR VOLUME 89 fL (80-99); MEAN PLATELET VOLUME 9.1 fL (9.0-12.2); MONOCYTES # (AUTO) 0.3 10^3/uL (0.0-1.0); MONOCYTES % (AUTO) 9 % (0-12); NEUTROPHILS # (AUTO) 2.7 10^3/uL (1.8-7.8); NEUTROPHILS % (AUTO) 79 % (42-75); PLATELET COUNT 298 10^3/uL (130-400); WHITE BLOOD COUNT 3.4 10^3/uL (4.3-11.0)
[2022-08-12 14:14] LABS: ALBUMIN 3.5 GM/DL (3.2-4.5); BILIRUBIN,TOTAL 0.4 MG/DL (0.1-1.0); CALCIUM 9.4 MG/DL (8.5-10.1); CREATININE SERUM 0.76 MG/DL (0.60-1.30); TOTAL PROTEIN 6.8 GM/DL (6.4-8.2)
== END ==
LOC: LAB 13:22
PROVIDERS: ATTEND Physician Assistant
DX: C61 Malignant neoplasm of prostate (principal); C64.1 Malignant neoplasm of right kidney, except renal pelvis
CPT/HCPCS: 36415; 80053; 85025

== ENCOUNTER → 2022-09-08 | Outpatient (CLI) | payer MEDICARE ==
[~2022-09-08] MED LIST changes: +GADOTERATE 0.5 MMOL/ML (CLARISCAN) 15 ML VIAL IV ONE
--- NOTE | 2022-09-08 16:37 | Diagnostic Imaging Report ---
PROCEDURE: MR imaging of the brain with and without contrast. TECHNIQUE: Multiplanar, multisequence MR imaging of the brain was performed with and without contrast. INDICATION: Prostate cancer with weakness, difficulty walking. Compared with brain MRI 05/20/2021, that exam showing some atrophy but no evidence of metastatic disease. FINDINGS: Mild generalized cerebral cortical atrophy showed no substantial interval progression, periventricular and subcortical white matter disease, T2 hyperintense and most conspicuous on the FLAIR weighted pulse sequences shows a very mild interval progression. No findings of focal nor generalized cerebral edema. There is no hemorrhage. After IV contrast there was no abnormal parenchymal or meningeal enhancement. No findings of intracranial involvement by neoplasm, primary or metastatic. No suspicious enhancement or signal distortion to the calvarium. There is no hemorrhage. There are no abnormal extra-axial fluid collections. There were no findings of an infarct. The orbits and sinuses nonacute. IMPRESSION: Chronic senescent atrophy and periventricular white matter disease showed slight interval progression. However no findings of infarct, hemorrhage or metastatic disease and no acute-appearing abnormality. Dictated by: Dictated on workstation # [id number]
== END ==
LOC: RAD 13:21
PROVIDERS: ATTEND Internal Medicine Hospice and Palliative Medicine
DX: G31.9 Degenerative disease of nervous system, unspecified (principal); C64.1 Malignant neoplasm of right kidney, except renal pelvis; C61 Malignant neoplasm of prostate
CPT/HCPCS: 70553